=== PATIENT | male | born 1970 | race Caucasian/White ===

== ENCOUNTER 2018-04-02 09:22 | Outpatient (REF) | payer BC, SELFPAY ==
[2018-04-02 13:00] LABS: TSH 0.22 uIU/mL (0.358-3.74)
== END 2018-04-02 09:42 ==
LOC: NCHCN 09:22
PROVIDERS: PCP Internal Medicine; Visit Provider Internal Medicine
DX: E03.9 Hypothyroidism, unspecified (principal)
CPT/HCPCS: 84443

== ENCOUNTER 2018-05-15 07:55 | Outpatient (REF) | payer BC, SELFPAY ==
[2018-05-15 13:09] LABS: FREE T4 0.93 ng/dL (0.76-1.46)
== END 2018-05-15 08:15 ==
LOC: NCHCN 07:55
PROVIDERS: PCP Internal Medicine; Visit Provider Internal Medicine
DX: E03.9 Hypothyroidism, unspecified (principal)
CPT/HCPCS: 84439; 84443

== ENCOUNTER 2018-06-16 14:45 | Emergency (ER) | payer BC, SELFPAY ==
[2018-06-16] VITALS (16 sets, daily range): BP systolic 109–130; BP diastolic 61–80; PULSE 87–108; RESP 14–26; TEMP 36.5–36.7; O2SAT 94–98
--- NOTE | 2018-06-16 15:19 | DI.RAD_ITS ---
SYMPTOM/DIAGNOSIS: SYNCOPE, R/O ACUTE DISEASE AP AND LATERAL CHEST: The heart size is normal. The lungs appear clear. No infiltrate or effusion is seen. Surgical clips are seen in the upper abdomen. IMPRESSION: Negative chest x-ray
--- NOTE | 2018-06-16 15:19 | DI.CT_ITS ---
SYMPTOM/DIAGNOSIS: S/P FALL, R/O ACUTE FX/INTRACRANIAL INJURY NONCONTRAST HEAD CT: No intracranial hemorrhage or skull fracture is seen.There is no evidence of mass or infarct. The ventricles are normal in size. IMPRESSION: Negative head CT. CT CERVICAL SPINE There is kyphosis in the lower thoracic, upper thoracic region, likely congenital. There is a fracture of the anterior superior end plate of T-2 which appears acute. No additional fractures are seen. Degenerative changes are noted mainly of the facet joints in the upper cervical region. Degenerative disc changes seen at C6-7. There is no paraspinal hematoma. The visualized portions of the lung apices appear clear. IMPRESSION: Fracture of the anterior superior corner of T-2. No cervical fracture
--- NOTE | 2018-06-16 15:22 | W.ED.GENAD ---
Discharge Plan Disposition Patient Disposition: HOME Condition: Improving Discharge Details Chief Complaint: Dizzy/Sync Clinical Impression: Micturition syncope, Thoracic spine fracture Primary Care Provider: Parviz Baron ED Provider: Jennifer Long Home Meds and New Rx's Prescriptions: Continued levothyroxine [Synthroid] 175 mcg Tablet 175 mcg PO DAILY RF: 0 aspirin [Aspirin Low Dose] 81 mg Tablet,Delayed Release (Dr/Ec) 81 mg PO DAILY RF: 0 Discharge Instructions Instructions: Vertebral Compression Fracture (ED), Syncope (ED) Additional Instructions: Alternate tylenol and motrin as needed and directed for pain. Drink plenty of fluids and get plenty of rest. Follow-up with your primary care doctor in 1 week for reevaluation. Return immediately to the emergency department with any worsening or new concerning symptoms. Discharge Data Discharge Date/Time-TO BE ENTERED AT DEPARTURE: 06/16/18 19:57 Discharge Physician: Jennifer Long Medical Decision Making 48-year-old male with remote h/o Hodgkin's lymphoma as a child who presents with syncopal episode post urination prior to arrival. Vitals within normal limits. Patient appears nontoxic and in no acute distress. He has a posterior occipital hematoma otherwise no acute findings on exam. Differential diagnosis includes most likely micturition syncope associated with vasovagal syncope with stimulation of vagus nerve during urination. Patient also admits to drinking less than usual recently to the dehydration may also be a factor. As he has no complaints of chest pain, shortness of breath, palpitations and no other medical risk factors, with normal vitals, a cardiac etiology appears less likely. Patient's age and history, will place an IV, bolus IV fluids, labs, chest x-ray, CT head and CT cervical spine. EKG notes a rate of 88, sinus no acute findings. 1800 --labs reviewed. White blood cell count 14 which may be an acute stress response as he has no fever or infectious symptoms. Remainder of labs unremarkable. Chest x-ray negative. CT head negative. CT C-spine noted a nondisplaced acute fracture of the anterior superior corner of T2 with slight depression of the superior endplate. No additional fractures noted. Patient has no midline T-spine tenderness so question whether this is acute. Will send for formal T-spine CT for further evaluation. 1814 --discussed with orthopedics Dr. Diaz - T2 fracture and there are no acute recommendations and patient can be discharged home. T-spine CT notes previously found T2 fracture but no other acute findings. Patient again denies any back pain. Patient states he feels good and is requesting to go home. Patient is instructed to follow-up with his primary care doctor for reevaluation and return here at any time if worse. Patient able to easily ambulate out of the ED. Differential Diagnosis micturition syncope, vasovagal syncope, dehydration. Medical Records Medical records reviewed: Yes I reviewed the patient's medical records. Imaging Data Radiologic Study: Radiologist's impression: CT Thoracic Spine Without Contrast FINDINGS: Again noted is a nondisplaced fracture of the anterosuperior corner of T2 and slight depression of the superior endplate of T2. No bony retropulsion or canal stenosis. The alignment of the thoracic spine is normal. The other vertebral body heights are maintained. IMPRESSION: Fracture of T2 as above. XR Chest, 2 Views FINDINGS: No airspace consolidation, pleural effusion or pneumothorax. The cardiomediastinal silhouette is unremarkable. IMPRESSION: No acute findings. CT Head Without Contrast FINDINGS: There is no intracranial hemorrhage. There is no mass effect or midline shift. The ventricles and sulci are appropriate in size and configuration for age. Normal triana white differentiation. The calvarium is intact. IMPRESSION: No acute intracranial findings. CT Cervical Spine Without Contrast FINDINGS: There is a nondisplaced acute fracture of the anterosuperior corner of T2 with slight depression of the superior endplate. No bony retropulsion or canal stenosis. There is reversal of the usual cervical lordosis. No cervical spine fracture. The lung apices are clear. IMPRESSION: Fracture of T2 as above. Lab Data Lab results reviewed: Yes I reviewed the patient's lab results. Laboratory Tests Range/Units 06/16/18 06/16/18 15:15 15:15 WBC (4.4-10.8) k/cumm 14.64 H RBC (4.50-6.00) m/cumm 5.19 Hgb (13.5-17.5) g/dL 15.7 Hct (40.0-50.0) % 45.5 MCV (80-95) fL 87.7 MCH (27.0-33.0) pg 30.3 MCHC (32.0-36.0) g/dL 34.5 RDW (11.8-14.1) % 14.2 H Plt Count (130-400) x1000/uL 378 MPV (8.0-11.0) fL 10.3 Immature Gran % 0.3 Neutrophils % 72.7 Lymphocytes % 17.8 Monocytes % 7.7 Eosinophils % 1.2 Basophils % 0.3 Absolute Neutrophils (1.2-6.7) k/cumm 10.64 H Absolute Lymphocytes (1.2-3.4) k/cumm 2.61 Absolute Monocytes (0.11-0.7) k/cumm 1.13 H Absolute Eosinophils (0.0-0.7) k/cumm 0.18 Absolute Basophils (0.0-0.2) k/cumm 0.04 Sodium (136-145) mmol/L 143 Potassium (3.5-5.1) mmol/L 4.2 Chloride (98-107) mmol/L 105 Carbon Dioxide (21.0-32.0) mmol/L 30.9 Anion Gap (3-11) mmol/L 7.1 BUN (7-18) mg/dL 22 H Creatinine (0.70-1.30) mg/dL 1.11 Estimated GFR/1.73 m2 (mL/min/1.73m2) >= 60.00 Glucose (70-100) mg/dL 119 H Calcium (8.5-10.1) mg/dL 8.7 Magnesium (1.8-2.4) mg/dL 2.3 Total Bilirubin (0.2-1.0) mg/dL 0.3 AST (15-37) U/L 34 ALT (12-78) U/L 54 Alkaline Phosphatase (46-116) U/L 62 Troponin I (0.00-0.06) ng/mL < 0.02 Total Protein (6.4-8.2) g/dL 7.2 Albumin (3.4-5.0) g/dL 3.6 ECG Data Attestation: I personally reviewed and interpreted this ECG (s) as follows: Interpretation: 1504: 88, sinus, no acute ST elevation or depression, QTC 431. QRS 90. HPI General Mode of arrival: ambulatory. Date/Time Provider Initiated Documentation: 06/16/18 14:46. Limitations to Documentation: no limitations. Information obtained by: patient. HPI Narrative: Patient is a 48 yo M who presents to the ED w/ a c/o syncopal episode at home prior to arrival. Patient states he was standing in his bathroom urinating when he felt dizzy and then woke up on the floor. Patient states he thinks he hit the left side of his head on the bathroom wall. Patient states he felt somewhat dazed afterwards but now is back to baseline he denies any headache. Patient denies any illness or symptoms prior to this episode and states he otherwise had been feeling in his usual health. He denies any new medications, recent travel, fever. He denies any chest pain or shortness of breath at the time of syncope. He does admit to some neck stiffness. He denies any other injury. Related Data Home Medications Medication Instructions Recorded Confirmed aspirin [Aspirin Low Dose] 81 mg PO DAILY 06/16/18 06/16/18 levothyroxine [Synthroid] 175 mcg PO DAILY 06/16/18 06/16/18 Allergies Allergy/AdvReac Type Severity Reaction Status Date / Time diphenhydramine Allergy Severe Unverified 06/16/18 15:13 [From Benadryl] General Stated Complaint: Dizzy/Sync ANJANA: 2 Review of Systems Review of Systems All systems reviewed & are unremarkable except as noted in HPI and below Constitutional Reports as per HPI, Denies chills and Denies fever(s) Eyes Denies blurry vision ENT Denies dizziness, Denies sore throat and Denies throat swelling Cardiovascular Denies chest pain and Denies dyspnea Respiratory Denies dyspnea Gastrointestinal Denies abdominal pain, Denies diarrhea and Denies vomiting Genitourinary Denies hematuria and Denies dysuria Musculoskeletal Denies back pain and Denies numbness Integumentary/Breasts Denies lesions and Denies rash Neurologic Denies dizziness and Denies numbness Allergic/Immunologic Denies throat swelling [facility] Medical History Hodgkin's disease (Chronic) Surgical History History of splenectomy (Acute) History of appendectomy (Chronic) Social History Smoking/Tobacco Use Status: Never alcohol intake: current alcohol intake frequency: holidays/special occasions only substance use type: does not use Exam Const General: cooperative, healthy appearing and no acute distress HENMT Head: hematoma left occipital Ears: hearing grossly normal bilaterally, external ears normal and TM's normal bilaterally General nose exam: external nose normal Face and sinus: normal facial exam Mouth: oral mucosae normal Eyes General: appearance normal, both eyes and all related structures Pupils: PERRL EOM: EOM intact bilaterally Neck Neck: normal visual inspection and No submandibular swelling Lymphatic: no lymphadenopathy noted Chest Chest: normal inspection of the chest and no tenderness Resp Effort & Inspection: normal respiratory effort and able to speak in complete sentences Auscultation: clear to auscultation bilaterally Cardio Rate: regular rate Rhythm: regular rhythm GI Inspection: normal to inspection Palpation: soft, not firm, not rigid and nontender Auscultation: normal bowel sounds Male General Exam: Yes normal external exam Back/Spine/Pelvis Cervical Spine: No cervical muscular tenderness and No cervical spinal tenderness Thoracic/Lumbar Spine: thoracic and lumbar spine normal to inspection, No thoracic spinal tenderness and No lumbar spinal tenderness Skin General skin exam: no rashes or lesions noted Neuro General: alert, awake, oriented x3 and moves all extremities Cranial Nerves: CN's II-XI intact bilaterally Cognition: normal cognition Speech: speech normal Motor: muscle tone normal throughout Sensory Exam: no sensory deficits noted Extrem General: normal to inspection, full ROM, normal capillary refill, no calf tenderness bilaterally and no edema Psych Appearance: grossly normal Mental Status: mental status grossly normal Speech and Movement: speech and movement normal Affect: normal affect Course Vital Signs Temperature 97.7 F 06/16/18 15:07 Pulse 87 06/16/18 15:07 Respiratory Rate 16 06/16/18 15:07 Blood Pressure 127/80 06/16/18 15:07 Pulse Oximetry 98 06/16/18 15:07 Temperature 97.7 F 06/16/18 15:07 Temperature Source Skin 06/16/18 15:07 Pulse 87 06/16/18 15:07 Respiratory Rate 16 06/16/18 15:15 Respiratory Effort Non-Labored 06/16/18 15:15 Respiratory Depth Normal 06/16/18 15:15 Respiratory Pattern Normal 06/16/18 15:15 Blood Pressure 127/80 06/16/18 15:07 Blood Pressure Position Supine 06/16/18 15:07 Pulse Oximetry 98 06/16/18 15:07 Oxygen Delivery Method Room Air 06/16/18 15:07 Oxygen Flow Rate 0 06/16/18 15:07 Pain Level 3 06/16/18 15:07
[2018-06-16 15:30] LABS: Abs Immature Grans 0.05 k/cumm (0.0-0.09); Absolute Basophil Count 0.04 k/cumm (0.0-0.2); Absolute Monocyte Count 1.13 k/cumm (0.11-0.7); Basophils % 0.3; Eosinophils % 1.2; HCT 45.5 % (40.0-50.0); HGB 15.7 g/dL (13.5-17.5); Immature Grans % 0.3; Lymphocytes % 17.8; Mean Corp. HGB Concentration 34.5 g/dL (32.0-36.0); Mean Corpuscular Hemoglobin 30.3 pg (27.0-33.0); Mean Corpuscular Volume 87.7 fL (80-95); Mean Platelet Volume 10.3 fL (8.0-11.0); Monocytes % 7.7; Neutrophils % 72.7; Platelet Count 378 x1000/uL (130-400); RBC 5.19 m/cumm (4.50-6.00); RBC Distribution Width 14.2 % (11.8-14.1); White Blood Cell Count 14.64 k/cumm (4.4-10.8)
[2018-06-16] MEDS: Normal Saline 1,000 ML 1000 ML IV (15:30)
[2018-06-16 15:31] LABS: Absolute Eosinophil Count 0.18 k/cumm (0.0-0.7); Absolute Lymphocyte Count 2.61 k/cumm (1.2-3.4); Absolute Neutrophil Count 10.64 k/cumm (1.2-6.7)
[2018-06-16 15:46] LABS: ALT 54 U/L (12-78); AST 34 U/L (15-37); Albumin 3.6 g/dL (3.4-5.0); Alkaline Phosphatase 62 U/L (46-116); Anion Gap 7.1 mmol/L (3-11); BUN 22 mg/dL (7-18); Bilirubin, Total 0.3 mg/dL (0.2-1.0); CO2 30.9 mmol/L (21.0-32.0); CREATININE 1.11 mg/dL (0.70-1.30); Calcium 8.7 mg/dL (8.5-10.1); Chloride 105 mmol/L (98-107); Glucose 119 mg/dL (70-100); Magnesium 2.3 mg/dL (1.8-2.4); Potassium 4.2 mmol/L (3.5-5.1); Sodium 143 mmol/L (136-145); Total Protein 7.2 g/dL (6.4-8.2)
[2018-06-16 15:48] LABS: Troponin I < 0.02 ng/mL (0.00-0.06)
--- NOTE | 2018-06-16 16:55 | DI.VRAD_ITS ---
EXAM: XR Chest, 2 Views EXAM DATE/TIME: 06/16/2018 4:24 PM CLINICAL HISTORY: 48 years old, male; Signs and symptoms; Other: S/P passed out, fall TECHNIQUE: XR of the chest, 2 views. COMPARISON: No relevant prior studies available. FINDINGS: No airspace consolidation, pleural effusion or pneumothorax. The cardiomediastinal silhouette is unremarkable. IMPRESSION: No acute findings. Dictated and Authenticated by: Latrell Reynoso MD. Ordering:ANIL Rodriguez MD
--- NOTE | 2018-06-16 17:12 | DI.VRAD_ITS ---
EXAM: CT Head Without Contrast EXAM DATE/TIME: 06/16/2018 3:22 PM CLINICAL HISTORY: 48 years old, male; Signs and symptoms; Other: S/P fall, R/O acute fracture/intracranial injury TECHNIQUE: Axial computed tomography images of the head/brain without contrast. All CT scans at this facility use at least one of these dose optimization techniques: automated exposure control; mA and/or kV adjustment per patient size (includes targeted exams where dose is matched to clinical indication); or iterative reconstruction. Coronal and sagittal reformatted images were created and reviewed. COMPARISON: No relevant prior studies available. FINDINGS: There is no intracranial hemorrhage. There is no mass effect or midline shift. The ventricles and sulci are appropriate in size and configuration for age. Normal triana white differentiation. The calvarium is intact. IMPRESSION: No acute intracranial findings. EXAM: CT Cervical Spine Without Contrast EXAM DATE/TIME: 06/16/2018 3:22 PM CLINICAL HISTORY: 48 years old, male; Signs and symptoms; Other: S/P fall, R/O acute fracture/intracranial injury TECHNIQUE: Axial computed tomography images of the cervical spine without intravenous contrast. All CT scans at this facility use at least one of these dose optimization techniques: automated exposure control; mA and/or kV adjustment per patient size (includes targeted exams where dose is matched to clinical indication); or iterative reconstruction. Coronal and sagittal reformatted images were created and reviewed. COMPARISON: No relevant prior studies available. FINDINGS: There is a nondisplaced acute fracture of the anterosuperior corner of T2 with slight depression of the superior endplate. No bony retropulsion or canal stenosis. There is reversal of the usual cervical lordosis. No cervical spine fracture. The lung apices are clear. IMPRESSION: Fracture of T2 as above. Dictated and Authenticated by: Latrell Reynoso MD. Ordering:ANIL Rodriguez MD
--- NOTE | 2018-06-16 17:51 | DI.CT_ITS ---
SYMPTOM/DIAGNOSIS: S/P FALL, T 2 FX NOTED ON C SPINE CT THORACIC SPINE CT: There is a fracture of the anterosuperior corner of T 2. No additional fractures are identified. The alignment appears normal. Osteophytes are seen projecting posteriorly at T 3-4. There is no evidence of pneumothorax. The visualized portions of the lungs appear clear. No pleural effusions are seen. IMPRESSION: Fracture of the anterior superior endplate of T 2.
--- NOTE | 2018-06-16 19:14 | DI.VRAD_ITS ---
EXAM: CT Thoracic Spine Without Contrast EXAM DATE/TIME: 06/16/2018 5:52 PM CLINICAL HISTORY: 48 years old, male; Injury or trauma; Fall; Follow-up exam; Laceration; Without foreign body; Additional info: S/P fall t2 FX noted on cspine CT TECHNIQUE: Axial computed tomography images of the thoracic spine without intravenous contrast. All CT scans at this facility use at least one of these dose optimization techniques: automated exposure control; mA and/or kV adjustment per patient size (includes targeted exams where dose is matched to clinical indication); or iterative reconstruction. Coronal and sagittal reformatted images were created and reviewed. COMPARISON: No relevant prior studies available. FINDINGS: Again noted is a nondisplaced fracture of the anterosuperior corner of T2 and slight depression of the superior endplate of T2. No bony retropulsion or canal stenosis. The alignment of the thoracic spine is normal. The other vertebral body heights are maintained. IMPRESSION: Fracture of T2 as above. Dictated and Authenticated by: Latrell Reynoso MD. Ordering:ANIL Rodriguez MD
--- NOTE | 2018-06-18 09:28 | CMPROGNOTE_ITS ---
Care Management Progress Note 06/18-Dr. Long requested assistance with a PCP (Tod) f/u within one week for passing out. Referral faxed to [facility] this am.
== END 2018-06-16 19:57 | disposition home or self-care (01) ==
PROVIDERS: Emergency Provider Physician Assistant; PCP Internal Medicine
DX: R55 Syncope and collapse (principal); S22.020A Wedge compression fracture of second thoracic vertebra, initial encounter for closed fracture; S00.03XA Contusion of scalp, initial encounter; W18.39XA Other fall on same level, initial encounter; W22.09XA Striking against other stationary object, initial encounter
CPT/HCPCS: 36415; 80053; 93005; 96360; 99285; 70450; 71046; 72125; 72128; 83735; 84484; 85025; 93010; L0172

== ENCOUNTER 2018-08-02 09:24 | Outpatient (REF) | payer BC, SELFPAY ==
[2018-08-02 12:37] LABS: TSH 0.96 uIU/mL (0.358-3.74)
== END 2018-08-02 09:44 ==
LOC: NCHCN 09:24
PROVIDERS: PCP Internal Medicine; Visit Provider Internal Medicine
DX: E03.9 Hypothyroidism, unspecified (principal)
CPT/HCPCS: 84439; 84443

== ENCOUNTER 2018-11-26 06:55 | Day surgery (SDC) | payer BC, SELFPAY ==
--- NOTE | 2018-11-26 06:44 | W.COLOREPORT ---
Date of service: 11/26/18 Time of Service: 08:21 Colonoscopy Report Date of procedure: 11/26/18 Pre-op diagnosis general: Hx of polyps Post-op diagnosis procedure note: same (4 polyps) Procedure: Colonoscopy with polypectomy by cold forceps Surgeon: Samra Mabry Anesthesia proc note operative: other (General/ ASA 2 / Jackie ortez, MONICA) Estimated blood loss (mL): 5 Pathology: other (Ascending polypsx2, transverse polyp, rectal polyp) Complications: None Disposition: same day Indications: Mr. Wharton is a pleasant 48 year old male seen in the office for his first colonoscopy. he has no family history of colon cancer. Risks, benefits and complications have been reviewed. Complications include but are not limited to bleeding, pain, perforation, missed small lesion/polyp, sore throat, aspiration and adverse reaction to the medications. Questions were entertained and answered to their satisfaction and they wished to proceed. No guarantees were given or implied. Prep: Miralax/Dulcolax Procedure Start Time: : Procedure End Time: :53 Retraction Time: 25 minutes Findings: Multiple small polyps Procedure Description: After informed consent was obtained the patient was taken to the procedure room and placed in a left decubitous position. Monitors were applied and a time out was done. The patients name, date of , procedure, allergies to medications and metal in their body was reviewed. The patient was then sedated. Once sedated and comfortable a rectal exam was done. External exam was normal. Internal exam revealed a normal sphincter tone and no palpable masses. The prostate felt smooth. The scope was then introduced and retro-flexed. No internal hemorrhoids were identified. The scope was then advanced to the cecum without difficulty. The TI and appendiceal orifice were identified. The prep was adequate. The scope was then slowly retracted over 25 minutes back into the rectum. Polyps were removed with cold forceps in the ascending colon x2, transverse colon x1 and rectum x1. The scope was removed and the patient was woken up and taken back to Same day surgery in stable condition. The patient tolerated the procedure well and there were no immediate complications. Follow up: The patient should follow up in 3-5 years unless they develop changes in bowel habits or other new gastrointestinal complaints.
--- NOTE | 2018-11-26 06:45 | W.PM.DSUDISC ---
Discharge Plan Disposition Patient Disposition: HOME Condition: Good Discharge Details Reason For Visit: Colon Cancer Screening Attending Provider: Samra Mabry Primary Care Provider: Parviz Baron Home Meds and New Rx's Prescriptions: Continued atorvastatin 20 mg tablet 20 mg PO DAILY RF: 0 albuterol sulfate [Proventil HFA] 90 mcg/actuation HFA aerosol inhaler 2 puff IH Q6H PRNRF: 0 fluticasone propionate 50 mcg/actuation spray,suspension 1 spray YOLANDA DAILY PRNRF: 0 levothyroxine [Synthroid] 175 mcg Tablet 175 mcg PO DAILY RF: 0 aspirin [Aspirin Low Dose] 81 mg Tablet,Delayed Release (Dr/Ec) 81 mg PO DAILY RF: 0 Discontinued polyethylene glycol 3350 17 gram/dose powder 238 g PO ONCE Qty: 238 RF: 0 bisacodyl [Dulcolax (bisacodyl)] 5 mg tablet,delayed release (DR/EC) 5 mg PO ONCE Qty: 4 RF: 0 Discharge Instructions Instructions: Colonoscopy (DC), Colorectal Polyps (DC) Additional Instructions: Findings: 4 small polyps Follow up: 3-5 years depending on final pathology results Please call if you develop: fevers >101.5 Nausea or Vomiting Abdominal pain that is not transient DAY SURGERY UNIT POST COLONOSCOPY INSTRUCTIONS 1. Because there will be medication in your system for the next 24 hours, you may feel a little sleepy. Your coordination will be affected. Therefore: a. Do not drive or operate dangerous equipment for 24 hours. b. Do not drink alcohol beverages for 24 hours (not even beer). c. Plan to go home and rest for the day. 2. Generally there are no restrictions on your activity after a day or so has gone by, but you may feel a bit fatigued for a few days. 3 After you arrive home you may have a light meal and return to a normal diet as you can tolerate it without feeling sick to your stomach. 4. After surgery, you may feel pain or discomfort. This should be only transient, but if it persists please contact your doctor. 5. If there are any questions regarding the findings of your procedure, please feel free to contact your doctor. 6. If you are unable to contact your doctor with a problem, contact the hospital at [phone]. 7. Continue all your regular medications unless directed otherwise. I understand the above instructions and have no questions. Signature of Patient or Responsible Adult Escort Date/Time Name of Responsible Adult Escort Signature of Nurse Date/Time Activity:: Activity as Tolerated Diet:: As Tolerated Discharge Orders Discharge Orders: Discharge Order (Routine); Ordered 11/26/18 Ordered By: Samra Mabry DS: Diagnosis Discharge Diagnosis (1) S/P colonoscopy: Status: Acute (2) Colorectal polyps: Status: Acute
[2018-11-26 07:22] VITALS: BP 105/67; PULSE 91; RESP 18; TEMP 36.5; O2SAT 96
[2018-11-26] MEDS: Lactated Ringers 1,000 ML 80 ML IV (07:34)
[2018-11-26] MEDS: Lidocaine 2% Pres-Free 5 ML VIAL (08:15)
--- NOTE | 2018-11-26 08:27 | BOWEL_PTH ---
PATIENT: Anibal Wharton LOC: [facility] U#:[id number] AGE/SX: 48/M ROOM: RE11/26/[address]: Samra Mabry MD : [id number] BED: DIS: 11/26/2018 SPEC #: [id number] RECD: 11/26/18 12:46 STATUS: JUAN M RE #: [id number] LISA: 11/26/18 08:[address]: Samra Mabry DEPT: Surgical Specimen RECD BY: Keerthi Sifuentes ENTERED: 11/26/18 12:48 SP TYPE: Bowel OTHR DR: Parviz Baron Tissues: 1 - BIOPSY BOWEL 2 - BIOPSY BOWEL 3 - BIOPSY BOWEL Procedures: GROSS AND MICRO LEVEL 4 Comments: [id number]
[2018-11-26] MEDS: Phenylephrine 800 MCG/10 ML SYR (08:50)
[2018-11-26 09:35] VITALS: BP 98/65; PULSE 77; RESP 16; TEMP 36.6; O2SAT 96
== END 2018-11-26 10:50 | disposition home or self-care (01) ==
LOC: SUR 06:56
PROVIDERS: PCP Internal Medicine; Visit Provider Surgery
PROC: 0DJD8ZZ Inspection of Lower Intestinal Tract, Via Natural or Artificial Opening Endoscopic (ICD-10-PCS; CPT 45378; principal; 2018-11-26 08:30)
DX: Z12.11 Encounter for screening for malignant neoplasm of colon (principal); D12.2 Benign neoplasm of ascending colon; K63.5 Polyp of colon; K62.1 Rectal polyp; Z87.19 Personal history of other diseases of the digestive system
CPT/HCPCS: 45380; 88305

== ENCOUNTER 2019-08-09 15:27 | Outpatient (REF) | payer BC, SELFPAY ==
[2019-08-09 19:57] LABS: FREE T4 1.45 ng/dL (0.76-1.46); TSH 0.05 uIU/mL (0.36-3.74)
== END 2019-08-09 15:47 ==
LOC: NCHCN 15:27
PROVIDERS: PCP Internal Medicine; Visit Provider Internal Medicine
DX: E03.9 Hypothyroidism, unspecified (principal)
CPT/HCPCS: 84439; 84443

== ENCOUNTER 2019-12-05 16:02 | Outpatient (REF) | payer BC, SELFPAY ==
[2019-12-05 20:39] LABS: HCT 44.4 % (40.0-50.0); HGB 15.1 g/dL (13.5-17.5); Mean Corpuscular Hemoglobin 29.7 pg (27.0-33.0); Mean Corpuscular Volume 87.4 fL (80-95); Platelet Count 419 x1000/uL (130-400); RBC 5.08 m/cumm (4.50-6.00); RBC Distribution Width 14.1 % (11.8-14.1); White Blood Cell Count 13.11 k/cumm (4.4-10.8)
[2019-12-05 20:48] LABS: ALT 51 U/L (16-63); AST 29 U/L (15-37); Albumin 3.6 g/dL (3.4-5.0); Alkaline Phosphatase 66 U/L (46-116); Anion Gap 9.2 mmol/L (3-11); BUN 24 mg/dL (7-18); Bilirubin, Total 0.3 mg/dL (0.2-1.0); CO2 26.8 mmol/L (21.0-32.0); CREATININE 1.04 mg/dL (0.70-1.30); Calcium 9.6 mg/dL (8.5-10.1); Chloride 104 mmol/L (98-107); FREE T4 1.46 ng/dL (0.76-1.46); Glucose 122 mg/dL (74-106); Magnesium 2.4 mg/dL (1.8-2.4); Potassium 4.8 mmol/L (3.5-5.1); Sodium 140 mmol/L (136-145); TSH 0.07 uIU/mL (0.36-3.74); Total Protein 6.8 g/dL (6.4-8.2)
== END 2019-12-05 16:22 ==
LOC: NCHCN 16:02
PROVIDERS: PCP Internal Medicine; Visit Provider Internal Medicine
DX: R56.9 Unspecified convulsions (principal)
CPT/HCPCS: 80053; 85027; 83735; 84439; 84443

== ENCOUNTER 2019-12-16 02:08 | Outpatient (CLI) | payer BC, SELFPAY ==
--- NOTE | 2019-12-16 13:01 | PDOC.EEG ---
Neurology EEG EEG: [facility] Department of Neurology EEG REPORT Date of Recordin12/16/19 Interpreting Physician: Dr. Dodie Thompson PCP/Referring Provider: Dr. Chan Baron Reason for study: Mr. Wharton is a 49 year-old man with a recent event manifested by LOC with generalized shaking, concerning for seizure. Current Medications: Home Medications Medication Instructions Recorded Confirmed Type aspirin [Aspirin Low Dose] 81 mg PO DAILY 06/16/18 11/26/18 History levothyroxine [Synthroid] 175 mcg PO DAILY 06/16/18 11/26/18 History albuterol sulfate 90 mcg/actuation 2 puff IH Q6H PRN 10/10/18 11/22/18 History aerosol inhaler atorvastatin 20 mg tablet 20 mg PO DAILY 10/10/18 11/26/18 History fluticasone propionate 50 1 spray YOLANDA DAILY PRN 11/02/18 11/26/18 History mcg/actuation nasal spray,suspension METHODS: A 21 channel digitized electroencephalogram was performed in the [facility] Clinical Neurophysiology Laboratory. The 10/20 international system of electrode placement was used and bipolar and referential electrode montages were recorded. In addition to EEG the patient was monitored for EKG and lateral/vertical eye movements. Activation procedures of photic stimulation and hyperventilation were performed if applicable. Video was used during activation procedures and during events where applicable. The duration of the recording was 30 minutes. DESCRIPTION OF EEG: The patient was noted to be awake, drowsy, and asleep during the recording. During maximal wakefulness a 10-Hz posterior background rhythm was present which was well-modulated, symmetrical, reactive to eye opening, and of moderate voltage. With eye opening the background activity changed to a low voltage mixture of alpha, beta, and occasional theta range frequencies. Faster frequencies were present in the bilateral anterior head regions. There was a normal anterior-posterior voltage gradient. During drowsiness, there was attenuation of the posterior dominant background rhythm and vertex waves. Stage II sleep was present with symmetrical sleep spindles, K-complexes, and vertex waves. Activating Procedures: Photic stimulation was performed which produced no posterior driving response. Hyperventilation was performed with moderate effort and produced no physiological slowing of the background. EKG: EKG revealed normal sinus rhythm. INTERPRETATION: This EEG is normal during the awake and sleep states as well as during photic stimulation and hyperventilation. PRIOR EEG: none CLINICAL CORRELATION: No focal regions of cerebral dysfunction or epileptiform activity was present. Epilepsy remains a clinical diagnosis and a normal EEG does not rule out epilepsy. Clinical correlation is advised. Dodie Thompson MD
== END 2019-12-16 02:28 ==
PROVIDERS: PCP Internal Medicine; Visit Provider Internal Medicine
DX: G40.909 Epilepsy, unspecified, not intractable, without status epilepticus (principal)
CPT/HCPCS: 95819

== ENCOUNTER 2019-12-25 02:25 | Outpatient (CLI) | payer BC, SELFPAY ==
--- NOTE | 2019-12-25 | DI.MRI_ITS ---
EXAM: MR BRAIN WO CLINICAL HISTORY: SEIZURE, R56.9 TECHNIQUE: Multiplanar multisequence MRI of the brain was performed. COMPARISON: No exams were available for comparison FINDINGS: VENTRICLES AND EXTRA AXIAL SPACES: Normal in size and morphology for the patient's age. MIDLINE SHIFT: None. CEREBRAL PARENCHYMA: No focus of restricted diffusion to suggest acute infarct. There are few scatte red hyperintense foci seen on the T2 and FLAIR images in the white matter. No space-occupying lesion identified. The temporal lobes appear symmetric. HEMORRHAGE: None. BRAINSTEM/CEREBELLUM: Normal. CALVARIUM: Normal. VISUALIZED PARANASAL SINUSES/MASTOIDS:Clear. [place]: Normal flow void. PITUITARY GLAND: Unremarkable. OTHER FINDINGS: None. IMPRESSION: 1. There are a few scattered hyperintense foci seen on the T2 and FLAIR images in the white matter. These are nonspecific. This may represent small vessel ischemic disease. Other demyelinating proces ses cannot be excluded. DATA REPOSITORY:
--- NOTE | 2019-12-25 | DI.MRI_ITS ---
CLINICAL HISTORY: SEIZURE, R56.9. TECHNIQUE: Multiplanar multisequence MRA of the brain was performed. COMPARISON: None. FINDINGS: Carotid Arteries: No aneurysm, occlusion or significant stenosis. Anterior Cerebral Arteries: Right: No aneurysm, occlusion or significant stenosis. Left: No aneurysm, occlusion or significant stenosis. Middle Cerebral Arteries: Right: No aneurysm, occlusion or significant stenosis. Left: No aneurysm, occlusion or significant stenosis. Posterior Cerebral Arteries: Right: No aneurysm, occlusion or significant stenosis. Left: No aneurysm, occlusion or significant stenosis. Vertebral Arteries: Right: No aneurysm, occlusion or significant stenosis. Left: No aneurysm, occlusion or significant stenosis. Basilar Artery: No aneurysm, occlusion or significant stenosis. IMPRESSION: Normal MRA examination of the [place]. DATA REPOSITORY:
== END 2019-12-25 02:45 ==
PROVIDERS: PCP Internal Medicine; Visit Provider Internal Medicine
DX: R56.9 Unspecified convulsions (principal); R90.89 Other abnormal findings on diagnostic imaging of central nervous system
CPT/HCPCS: 70544; 70551

== ENCOUNTER 2020-11-30 16:13 | Outpatient (REF) | payer BC, SELFPAY ==
[2020-11-30 20:33] LABS: TSH 0.01 uIU/mL (0.36-3.74)
== END 2020-11-30 16:14 | disposition home or self-care (01) ==
LOC: NCHCN 16:13
PROVIDERS: PCP Internal Medicine; Visit Provider Internal Medicine
DX: E03.9 Hypothyroidism, unspecified (principal)
CPT/HCPCS: 84443

== ENCOUNTER 2021-02-26 16:35 | Outpatient (REF) | payer BC, SELFPAY ==
[2021-02-26 22:05] LABS: FREE T4 1.49 ng/dL (0.76-1.46); TSH 0.05 uIU/mL (0.36-3.74)
== END 2021-02-26 16:36 | disposition home or self-care (01) ==
LOC: NCHCN 16:35
PROVIDERS: PCP Internal Medicine; Visit Provider Family Medicine
DX: E03.8 Other specified hypothyroidism (principal)
CPT/HCPCS: 84439; 84443

== ENCOUNTER 2021-05-20 19:12 | Outpatient (REF) | payer BC, SELFPAY ==
[2021-05-20 21:32] LABS: FREE T4 1.21 ng/dL (0.76-1.46); TSH 1.95 uIU/mL (0.36-3.74)
== END 2021-05-20 19:13 | disposition home or self-care (01) ==
LOC: NCHCN 19:12
PROVIDERS: PCP Internal Medicine; Visit Provider Family Medicine
DX: E03.9 Hypothyroidism, unspecified (principal)
CPT/HCPCS: 84439; 84443

== ENCOUNTER 2022-05-07 23:40 | Emergency (ER) | payer BC, SELFPAY ==
--- NOTE | 2022-05-07 00:05 | DI.RAD_ITS ---
Exam(s) XR CHEST 2V PA LATERAL EXAM: XR CHEST 2V PA LATERAL CLINICAL HISTORY: chest pain, r/o acute disease TECHNIQUE: 2D digital imaging was performed. COMPARISON: CR XR CHEST 2V PA LATERAL from 06/16/2018 FINDINGS: The heart is not enlarged. Slight prominence of pulmonary markings noted, chronic, unchanged from ex amination of June 2018, otherwise the lungs are clear and well expanded. No pleural effusion seen. Mediastinal contours appear intact. IMPRESSION: No evidence of acute process. RADIATION DOSE DELIVERED: Total DLP
--- NOTE | 2022-05-07 23:30 | RT.EKG_ITS ---
APPROVED REPORT Exam: Resting ECG Reason for Exam: chest pain Patient Location: E HR:103 bpm ECG Measurements Heart Rate 103 AXIS MN 140 P 63 QRSd 87 QRS 47 QT 317 T -16 QTc 415 Conclusion Sinus tachycardia...rate> 99. Sinus. Normal axis. No STEMI. I have reviewed and interpreted ECG and agree with software generated interpretation.
[2022-05-07 23:45] VITALS: BP 179/74; PULSE 98; RESP 19; TEMP 37.2; O2SAT 97
[2022-05-07 23:57] VITALS: RESP 26
[2022-05-07 23:59] LABS: Abs Immature Grans 0.05 10^3/uL (0.0-0.06); Absolute Basophil Count 0.09 10^3/uL (0.0-0.2); Absolute Eosinophil Count 0.47 10^3/uL (0.0-0.7); Absolute Lymphocyte Count 3.81 10^3/uL (1.2-3.4); Absolute Monocyte Count 1.71 10^3/uL (0.1-0.8); Absolute Neutrophil Count 9.38 10^3/uL (1.2-6.7); Basophils % 0.6; HCT 43.9 % (40.0-50.0); HGB 14.8 g/dL (13.5-17.5); Immature Grans % 0.3; Lymphocytes % 24.6; MCHC 33.7 % (32.0-36.0); MCV 89 fL (80-95); MPV 10.4 fL (8.0-11.0); Neutrophils % 60.5; Platelet Count 385 10^3/uL (130-400); RBC 4.93 10^6/uL (4.36-5.78); RDW 13.3 % (11.8-14.1); RDW-SD 43.5 fL
[2022-05-08 00:19] LABS: ALT 45 U/L (16-63); AST 29 U/L (15-37); Albumin 3.5 g/dL (3.4-5.0); Alkaline Phosphatase 71 U/L (46-116); Anion Gap 7.9 mmol/L (3-11); BUN 21 mg/dL (7-18); Bilirubin, Total 0.4 mg/dL (0.2-1.0); CO2 28.1 mmol/L (21.0-32.0); Calcium 8.7 mg/dL (8.5-10.1); Chloride 105 mmol/L (98-107); Estimated GFR 89.44 (mL/min/1.73m2); Glucose 115 mg/dL (74-106); Magnesium 2.2 mg/dL (1.8-2.4); Potassium 3.9 mmol/L (3.5-5.1); Sodium 141 mmol/L (136-145); Total Protein 7.3 g/dL (6.4-8.2); Troponin I < 50 ng/L (<or=60)
[2022-05-08 00:27] LABS: Diff Comment Agrees w/ Instrument; RBC Morphology Normal
[2022-05-08 00:29] LABS: D-Dimer 261 ng/mlFEU (<500)
--- NOTE | 2022-05-08 00:31 | W.ED.GENAD ---
Discharge Plan Disposition Patient Disposition: Home Condition: Improving Discharge Details Clinical Impression: Chest pain Primary Care Provider: Carmelo Benavidez ED Provider: Jennifer Long Home Meds and New Rx's Prescriptions: Continued atorvastatin 20 mg tablet 20 mg PO DAILY albuterol sulfate [Proventil HFA] 90 mcg/actuation HFA aerosol inhaler 2 puff IH Q6H PRN fluticasone propionate 50 mcg/actuation spray,suspension 1 spray YOLANDA DAILY PRN levothyroxine 150 mcg capsule 150 mcg PO DAILY aspirin [Laila Low Dose Aspirin] 81 mg Tablet,Delayed Release (Dr/Ec) 81 mg PO DAILY No Action famotidine [Pepcid] 40 mg tablet 40 mg PO DAILY Qty: 30 0RF Discharge Instructions Instructions: Chest Pain (ED) Additional Instructions: Your blood test, EKGs and imaging today are reassuring and show no evidence of acute concerning or significant findings. A prescription for Carafate has been sent electronically to your pharmacy to take as needed and directed. Take your omeprazole once daily for the next 2 weeks. Discussed with your general surgeon tomorrow whether it would be okay to proceed with your colonoscopy as scheduled. Call your primary care doctor's office on Monday to schedule a follow-up appointment for recheck of your blood pressure, reevaluation and for referral for outpatient stress test if your symptoms return or worsen. Return immediately to the emergency department if you develop any worsening or new concerning symptoms. Discharge Data Discharge Date/Time-TO BE ENTERED AT DEPARTURE: 05/08/22 03:00 Discharge Physician: Jennifer Long Medical Decision Making 0010 -- 52-year-old male with a history of cardiac murmur, subclavian steal syndrome, carotid artery stenosis who presents with intermittent chest pain since yesterday. Blood pressure hypertensive at 179/74. EKG on arrival notes a rate of 103, normal sinus, no STEMI and nondiagnostic. Patient appears comfortable and nontoxic. Chest is nontender. History and presentation does not appear consistent with PE or dissection. As there is no exertional component and he had no other associated symptoms, low suspicion with ACS but considering his age and history, will obtain screening labs, chest x-ray. We will give a GI cocktail and reassess. Patient is agreeable to stay for repeat troponin. 0245 --labs and imaging reviewed. White blood cell count 15. He has had similar elevated white blood cell count dating back for the last few years. Initial Troponin negative. D-dimer within normal limits. Chest x-ray negative. Patient was agreeable to stay for a repeat troponin which was also negative. Repeat EKG unchanged. Patient reassessed and he admits to complete resolution of his symptoms and would like to go home. Heart score 2, low risk. Repeat BP 150/58. Advised to follow up with the primary care doctor for re-evaluation and for recheck of his blood pressure, reevaluation and for referral for stress test if indicated. Prescription for Carafate sent electronically to his pharmacy. He was advised to take a PPI once daily for the next 2 weeks. Usual and customary return precautions given prior to discharge. Medical Records Medical records reviewed: Yes I reviewed the patient's medical records. Imaging Data Radiologic Study: Radiologist's impression: XR Chest Exam date and time: 05/08/2022 12:20 AM Age: 52 years old Clinical indication: On breathing; Patient HX: Chest pain, R/O acute disease. TECHNIQUE: Imaging protocol: Radiologic exam of the chest. Views: 2 views. COMPARISON: CR XR CHEST 2V PA LATERAL 06/16/2018 4:19 PM FINDINGS: Lungs: There is no evidence of focal pulmonary consolidation. The pulmonary vasculature is normal. Pleural spaces: There is no evidence of pneumothorax. There are no pleural effusions present. Heart/Mediastinum: The cardiac silhouette is within normal limits. The mediastinum is normal. Bones/joints: The spine, sternum, ribs, and pectoral girdles show no evidence of acute abnormality Other findings: There are no soft tissue masses or calcifications. IMPRESSION: No active cardiopulmonary disease. Lab Data Lab results reviewed: Yes I reviewed the patient's lab results. Labs: Laboratory Tests Range/Units 05/07/22 05/07/22 05/07/22 23:51 23:51 23:52 WBC (4.4-10.8) 10^3/uL 15.50 H RBC (4.36-5.78) 10^6/uL 4.93 Hgb (13.5-17.5) g/dL 14.8 Hct (40.0-50.0) % 43.9 MCV (80-95) fL 89 MCH (27.0-33.0) pg 30.0 MCHC (32.0-36.0) % 33.7 RDW (11.8-14.1) % 13.3 Plt Count (130-400) 10^3/uL 385 MPV (8.0-11.0) fL 10.4 Immature Gran % 0.3 Neutrophils % 60.5 Lymphocytes % 24.6 Monocytes % 11.0 Eosinophils % 3.0 Basophils % 0.6 Nucleated RBC % (0.0-0.3) % 0.0 Absolute Neutrophils (1.2-6.7) 10^3/uL 9.38 H Absolute Lymphocytes (1.2-3.4) 10^3/uL 3.81 H Absolute Monocytes (0.1-0.8) 10^3/uL 1.71 H Absolute Eosinophils (0.0-0.7) 10^3/uL 0.47 Absolute Basophils (0.0-0.2) 10^3/uL 0.09 RBC Morphology Normal D-Dimer (<500) ng/mlFEU 261 Sodium (136-145) mmol/L 141 Potassium (3.5-5.1) mmol/L 3.9 Chloride (98-107) mmol/L 105 Carbon Dioxide (21.0-32.0) mmol/L 28.1 Anion Gap (3-11) mmol/L 7.9 BUN (7-18) mg/dL 21 H Creatinine (0.70-1.30) mg/dL 1.0 Est GFR (CKD-EPI 2020) (mL/min/1.73m2) 89.44 Glucose (74-106) mg/dL 115 H Calcium (8.5-10.1) mg/dL 8.7 Magnesium (1.8-2.4) mg/dL 2.2 Total Bilirubin (0.2-1.0) mg/dL 0.4 AST (15-37) U/L 29 ALT (16-63) U/L 45 Alkaline Phosphatase (46-116) U/L 71 Troponin I (<or=60) ng/L < 50 Total Protein (6.4-8.2) g/dL 7.3 Albumin (3.4-5.0) g/dL 3.5 Range/Units 05/08/22 02:00 WBC (4.4-10.8) 10^3/uL RBC (4.36-5.78) 10^6/uL Hgb (13.5-17.5) g/dL Hct (40.0-50.0) % MCV (80-95) fL MCH (27.0-33.0) pg MCHC (32.0-36.0) % RDW (11.8-14.1) % Plt Count (130-400) 10^3/uL MPV (8.0-11.0) fL Immature Gran % Neutrophils % Lymphocytes % Monocytes % Eosinophils % Basophils % Nucleated RBC % (0.0-0.3) % Absolute Neutrophils (1.2-6.7) 10^3/uL Absolute Lymphocytes (1.2-3.4) 10^3/uL Absolute Monocytes (0.1-0.8) 10^3/uL Absolute Eosinophils (0.0-0.7) 10^3/uL Absolute Basophils (0.0-0.2) 10^3/uL RBC Morphology D-Dimer (<500) ng/mlFEU Sodium (136-145) mmol/L Potassium (3.5-5.1) mmol/L Chloride (98-107) mmol/L Carbon Dioxide (21.0-32.0) mmol/L Anion Gap (3-11) mmol/L BUN (7-18) mg/dL Creatinine (0.70-1.30) mg/dL Est GFR (CKD-EPI 2020) (mL/min/1.73m2) Glucose (74-106) mg/dL Calcium (8.5-10.1) mg/dL Magnesium (1.8-2.4) mg/dL Total Bilirubin (0.2-1.0) mg/dL AST (15-37) U/L ALT (16-63) U/L Alkaline Phosphatase (46-116) U/L Troponin I (<or=60) ng/L < 50 Total Protein (6.4-8.2) g/dL Albumin (3.4-5.0) g/dL ECG Data Attestation: I personally reviewed and interpreted this ECG (s) as follows: Interpretation: Rate of 103, sinus, normal axis, no STEMI. Sign Out No HPI General Mode of arrival: ambulatory. Date/Time Provider Initiated Documentation: 05/07/22 23:41. Limitations to Documentation: no limitations. Information obtained by: patient. HPI Narrative: Patient is a 52-year-old male with a history of carotid artery stenosis, subclavian steal syndrome, Hodgkin's lymphoma as a child with history of splenectomy and appendectomy presents for substernal chest pain since yesterday. 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 He states this was not exertional but initially noted the substernal chest pressure while doing this. He states the pain lasted for several hours and then resolved and had no pain this morning but it returned at 2 PM this afternoon while he was at rest. He does occasionally admit to pain with deep breath but denies any pain with movement. He denies any known injury. He states the pain is currently 5/10. He states he has a history of reflux and states this could feel similar. He denies any fever, cough, shortness of breath, dizziness, or leg swelling. Related Data Home Medications Medication Instructions Recorded Confirmed aspirin 81 mg tablet,delayed 81 mg PO DAILY 06/16/18 05/09/22 release (Laila Low Dose Aspirin) albuterol sulfate 90 mcg/actuation 2 puff inhalation Q6H PRN 10/10/18 05/09/22 aerosol inhaler (Proventil HFA) atorvastatin 20 mg tablet 20 mg PO DAILY 10/10/18 05/09/22 fluticasone propionate 50 1 spray intranasal DAILY PRN 11/02/18 05/09/22 mcg/actuation nasal spray,suspension levothyroxine 150 mcg capsule 150 mcg PO DAILY 07/01/21 05/09/22 famotidine 40 mg tablet (Pepcid) 40 mg PO DAILY #30 tabs 05/09/22 Previous Rx's Medication Instructions Recorded famotidine 40 mg tablet (Pepcid) 40 mg PO DAILY #30 tabs 05/09/22 Allergies Allergy/AdvReac Type Severity Reaction Status Date / Time diphenhydramine Allergy Severe Hives Verified 05/09/22 07:20 [From Benadryl] General Stated Complaint: Chest Pain ANJANA: 2 Review of Systems All systems reviewed & are unremarkable except as noted in HPI and below Constitutional Constitutional: Reports as per HPI, Denies chills and Denies fever(s) Eyes Eyes: Denies blurry vision ENT Ears, Nose, Mouth, and Throat: Denies dizziness, Denies sore throat and Denies throat swelling Cardiovascular Cardiovascular: Reports chest pain and Denies dyspnea Respiratory Respiratory: Denies cough and Denies dyspnea Gastrointestinal Gastrointestinal: Denies abdominal pain, Denies diarrhea and Denies vomiting Genitourinary Genitourinary: Denies hematuria and Denies dysuria Musculoskeletal Musculoskeletal: Denies back pain and Denies numbness Integumentary/Breasts Skin/Breast: Denies lesions and Denies rash Neurologic Neurologic: Denies dizziness, Denies localized weakness and Denies numbness Allergic/Immunologic Allergic/Immunologic: Denies throat swelling PFSH All Active Problems Chest pain (Acute) Screening for colon cancer (Acute) Syncope (Chronic) Colorectal polyps (Acute) Medical History Allergic rhinitis Asthma, exercise induced Cardiac murmur Carotid artery stenosis History of colon polyps 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, in remission for years Hyperlipidemia Hypothyroidism Pulsatile tinnitus of left ear Radiation exposure Subclavian artery stenosis Subclavian steal syndrome left subclavian stenosis with possible steal Surgical History History of appendectomy History of splenectomy S/P colonoscopy (~11/26/18) Social History Smoking/Tobacco Use Status: Never Smoking risk assessment performed?: Yes Alcohol Intake: current Alcohol Intake frequency: a few times a week Alcohol type: beer Drug use: Never Substance use type: does not use Details: alcohol: t-21 Household members: spouse Housing: house 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; 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 [employer] Pets and animals: Yes Pets and animals: cat(s) Current gender identity: male What is your relationship status?: Panel score (0-1 are the most socially isolated patients): 1 What type of physical activity do you participate in: weight lifting and running Frequency: 3-4 times per week Seatbelt use: always Do you feel safe at home: Yes Do you feel safe in your relationship?: Yes Exam Const General: cooperative, healthy appearing and no acute distress Orientation: alert, awake and oriented x3 HENMT Head: normal to inspection Face and sinus: normal facial exam Eyes General: appearance normal, both eyes and all related structures Pupils: PERRL EOM: EOM intact bilaterally Neck Neck: normal visual inspection and No submandibular swelling Lymphatic: no lymphadenopathy noted Chest Chest: normal inspection of the chest, normal palpation of entire chest wall and no tenderness Resp Effort & Inspection: normal respiratory effort and able to speak in complete sentences Auscultation: clear to auscultation bilaterally Cardio Rate: regular rate Rhythm: regular rhythm GI Inspection: normal to inspection Palpation: soft, not firm, not rigid and nontender Auscultation: normal bowel sounds Back/Spine/Pelvis Thoracic/Lumbar Spine: thoracic and lumbar spine normal to inspection Pelvis: no pain with anterior-posterior compression Skin General skin exam: no rashes or lesions noted Neuro General: patient alert, patient awake and patient oriented x3 Cognition: normal cognition Speech: speech normal Motor: muscle tone normal throughout Sensory Exam: no sensory deficits noted Extrem General: normal to inspection, full ROM, capillary refill normal, no calf tenderness bilaterally and no edema Psych Appearance: grossly normal Mental Status: mental status grossly normal Speech and Movement: speech and movement normal Affect: normal affect Course Vital Signs Vital signs: Vital Signs Temperature 99.0 F 05/07/22 23:45 Pulse 98 H 05/07/22 23:45 Respiratory Rate 19 05/07/22 23:45 Blood Pressure 179/74 H 05/07/22 23:45 Pulse Oximetry 97 05/07/22 23:45 Temperature 99.0 F 05/07/22 23:45 Temperature Source Temporal Artery Scan 05/07/22 23:45 Pulse 98 H 05/07/22 23:45 Respiratory Rate 26 H 05/07/22 23:57 Respiratory Effort Non-Labored 05/07/22 23:57 Respiratory Depth Normal 05/07/22 23:57 Respiratory Pattern Normal 05/07/22 23:57 Blood Pressure 179/74 H 05/07/22 23:45 Blood Pressure Position Sitting 05/07/22 23:45 Pulse Oximetry 97 05/07/22 23:45 Pain Level 6 05/07/22 23:57 Lab/Test Results Lab/Test Results: Laboratory Tests Range/Units 05/07/22 05/07/22 05/07/22 23:51 23:51 23:52 WBC (4.4-10.8) 10^3/uL 15.50 H RBC (4.36-5.78) 10^6/uL 4.93 Hgb (13.5-17.5) g/dL 14.8 Hct (40.0-50.0) % 43.9 MCV (80-95) fL 89 MCH (27.0-33.0) pg 30.0 MCHC (32.0-36.0) % 33.7 RDW (11.8-14.1) % 13.3 Plt Count (130-400) 10^3/uL 385 MPV (8.0-11.0) fL 10.4 Immature Gran % 0.3 Neutrophils % 60.5 Lymphocytes % 24.6 Monocytes % 11.0 Eosinophils % 3.0 Basophils % 0.6 Nucleated RBC % (0.0-0.3) % 0.0 Absolute Neutrophils (1.2-6.7) 10^3/uL 9.38 H Absolute Lymphocytes (1.2-3.4) 10^3/uL 3.81 H Absolute Monocytes (0.1-0.8) 10^3/uL 1.71 H Absolute Eosinophils (0.0-0.7) 10^3/uL 0.47 Absolute Basophils (0.0-0.2) 10^3/uL 0.09 RBC Morphology Normal D-Dimer (<500) ng/mlFEU 261 Sodium (136-145) mmol/L 141 Potassium (3.5-5.1) mmol/L 3.9 Chloride (98-107) mmol/L 105 Carbon Dioxide (21.0-32.0) mmol/L 28.1 Anion Gap (3-11) mmol/L 7.9 BUN (7-18) mg/dL 21 H Creatinine (0.70-1.30) mg/dL 1.0 Est GFR (CKD-EPI 2020) (mL/min/1.73m2) 89.44 Glucose (74-106) mg/dL 115 H Calcium (8.5-10.1) mg/dL 8.7 Magnesium (1.8-2.4) mg/dL 2.2 Total Bilirubin (0.2-1.0) mg/dL 0.4 AST (15-37) U/L 29 ALT (16-63) U/L 45 Alkaline Phosphatase (46-116) U/L 71 Troponin I (<or=60) ng/L < 50 Total Protein (6.4-8.2) g/dL 7.3 Albumin (3.4-5.0) g/dL 3.5
--- NOTE | 2022-05-08 00:41 | DI.VRAD_ITS ---
PROCEDURE INFORMATION: Exam: XR Chest Exam date and time: 05/08/2022 12:20 AM Age: 52 years old Clinical indication: On breathing; Patient HX: Chest pain, R/O acute disease. TECHNIQUE: Imaging protocol: Radiologic exam of the chest. Views: 2 views. COMPARISON: CR XR CHEST 2V PA LATERAL 06/16/2018 4:19 PM FINDINGS: Lungs: There is no evidence of focal pulmonary consolidation. The pulmonary vasculature is normal. Pleural spaces: There is no evidence of pneumothorax. There are no pleural effusions present. Heart/Mediastinum: The cardiac silhouette is within normal limits. The mediastinum is normal. Bones/joints: The spine, sternum, ribs, and pectoral girdles show no evidence of acute abnormality Other findings: There are no soft tissue masses or calcifications. IMPRESSION: No active cardiopulmonary disease. Dictated and Authenticated by: Mack Mathis MD. Ordering:ANIL Rodriguez MD
--- OUTSIDE RECORDS SUMMARY | 2022-05-08 00:47 | XMS_ITS | Encounter Summary ---
:1970 Author Organization [facility] Address [address] [place] [address] Care Team Providers Name Role Phone Parviz Baron MD Primary Care Provider Encounter Details Date Type Department Care Team Description 07/06/2010 Hospital Encounter [facility] - Ramon Sweet MD [address] [phone] (Wo rk) Social History Tobacco Use Types Packs/Day Years Used Date Smoking Tobacco: Never Alcohol Use Standard Drinks/Week Comments Yes 2 (1 standard drink = 0.6 oz pure alcoho l) Sex Assigned at Date Recorded Not on file documented as of this encounter Medications at Time of Discharge Medication Sig Dispensed Refills Start Date End Date aspirin chewable 81 mg Take 81 mg by mouth 0 tablet daily. FLUTICASONE PROPIONATE by Nasal route as 0 2010 (FLONASE NASL) needed. levothyroxine (SYNTHROID) Take by mouth daily. Take on e tablet by mouth 6 days a week needs to follow up with primary 30 Tab 1 05/05/2010 200 mcg tablet MULTI-VITAMIN ORAL Take by mouth daily. 0 011 penicillin v potassium Take 250 mg by mouth 0 (VEETID) 250 mg tablet 2 times daily. documented as of this encounter Discharge Disposition Disposition Code Departure Means Destination Home or Self Mcfp documented in this encounter Plan of Treatment Not on filedocumented as of this encounter Visit Diagnoses Not on filedocumented in this encounter Care Teams Residential Carpenter Relationship Specialty Start Date End Date Parviz Baron MD PCP - General 10/01/08 [address] [place] [address] documented as of this encounter
--- OUTSIDE RECORDS SUMMARY | 2022-05-08 00:47 | XMS_ITS | Encounter Summary ---
:1970 Author Organization [facility] Address [address] [place] [address] Care Team Providers Name Role Phone Parviz Baron MD Primary Care Provider Encounter Details Date Type Department Care Team Description 02/06/2007 Results Only [facility] Yakov Pollard MD Pediatric Hematology & Oncology - [address] [phone] Social History Tobacco Use Types Packs/Day Years Used Date Smoking Tobacco: Never Assessed Sex Assigned at Date Recorded Not on file documented as of this encounter Plan of Treatment Not on filedocumented as of this encounter Procedures Procedure Name Priority Date/Time Associated Comments Diagnosis TESTS ADDED BY PHONE Routine 02/06/2007 9:30 Resu lts for this EDT procedure are i n the results section. COMPLETE BLOOD COUNT Routine 02/06/2007 9:30 Resu lts for this AND DIFFERENTIAL EDT procedure a re in the results section. TSH Routine 02/06/2007 9:30 Results for this EDT procedure are i n the results section. T4 FREE Routine 02/06/2007 9:30 Results for this EDT procedure are i n the results section. PHOSPHORUS Routine 02/06/2007 9:30 Results for this EDT procedure are i n the results section. CALCIUM Routine 02/06/2007 9:30 Results for this EDT procedure are i n the results section. documented in this encounter Results (ABNORMAL) TSH (02/06/2007 9:30 EDT) P athologist Signature TSH 0.06 (L) 0.35 - 5.00 [facility] uIU/mL LAB Specimen Anatomical Collection Method Collection Time Receive d Time (Source) Location / / Volume Laterality 02/06/2007 9:30 02/06/2007 9 :57 EDT EDT Yakov Pollard MD CHEMISTRY & BLOOD GAS ORDERA BLES Performing Organization Address City/State/ZIP Code Phon e Number [facility] [address] [place] [address] SERVICES [facility] [address] [place] [address] PHOSPHORUS (02/06/2007 9:30 EDT) P athologist Signature Phosphorus 3.7 2.5 - 4.5 [facility] mg/dl LAB Specimen Anatomical Collection Method Collection Time Receive d Time (Source) Location / / Volume Laterality 02/06/2007 9:30 02/06/2007 9 :57 EDT EDT Yakov Pollard MD CHEMISTRY & BLOOD GAS ORDERA BLES Performing Organization Address City/[facility]/ZIP Code Phon e Number [facility] [address] [place] [address] SERVICES [facility] [address] [place] [address] T4 FREE (02/06/2007 9:30 EDT) P athologist Signature Free T4 1.6 0.8 - 1.8 [facility] ng/dL LAB Specimen Anatomical Collection Method Collection Time Receive d Time (Source) Location / / Volume Laterality 02/06/2007 9:30 02/06/2007 9 :57 EDT EDT Yakov Pollard MD CHEMISTRY & BLOOD GAS ORDERA BLES Performing Organization Address City/[facility]/ZIP Code Phon e Number [facility] [address] [place] [address] SERVICES [facility] [address] [place] [address] (ABNORMAL) HEMAGRAM AND DIFFERENTIAL (02/06/2007 9:30 EDT) Component Value Ref Test Analysis Performed At Patholo gist Range Method Time Signature WBC 8.21 4.0 - JUAN 10.4 [facility] K/cmm RBC 5.22 4.36 - JU[facility] 5.78 [facility] M/cmm Hemoglobin 15.7 13.8 - [facility] 17.3 [facility] gm/dl HCT 46.1 39.5 - JUAN 50.2 % [facility] MCV 88 81 - 95 [facility] fl [facility] MCH 30.1 27.6 - JUAN 33.0 pg [facility] MCHC 34.1 32.8 - JUAN 36.4 [facility] gm/dl PLT 313 141 - JUAN 320 [facility] K/cmm RDW-CV 14.1 11.8 - JUAN 14.1 % [facility] Neutrophils 54.0 45.5 - JUAN 79.7 % [facility] Lymphocytes 32.0 15.0 - JUAN 46.8 % [facility] Monocytes 11.0 1.8 - JUAN 12.0 % [facility] Eosinophils 1.0 0.6 - JUAN 6.9 % [facility] Basophils 2.0 (H) 0.2 - JUAN 1.4 % [facility] ABS 4.44 2.20 - [facility] Neutrophils 8.85 [facility] K/cmm ABS Lymphs 2.63 1.09 - JUAN 3.30 [facility] K/cmm ABS Monocytes 0.90 (H) 0.1 - JUAN 0.8 [facility] K/cmm ABS 0.08 0.03 - JUAN Eosinophils 0.61 [facility] K/cmm ABS Basophils 0.16 (H) 0.01 - JUAN 0.11 [facility] K/cmm RBC Morphology 1+ Anisocytosis [facility] 1+ Poikilocytosis [facility] 1+ Target cells WBC Morphology 1+ Smudge cells J[facility]AN [facility] Platelet 1+ Large [facility] Morphology platelets [facility] Type of Diff: Manual [facility] Specimen Anatomical Collection Method Collection Time Receive d Time (Source) Location / / Volume Laterality 02/06/2007 9:30 02/06/2007 9 :57 EDT EDT Yakov Pollard MD PACKAGES & DNA PROBE ORDERAB LES Performing Organization Address City/State/ZIP Code Phon e Number [facility] [address] [place] [address] SERVICES [facility] [address] [place] [address] CALCIUM (02/06/2007 9:30 EDT) P athologist Signature Calcium 9.7 8.5 - 10.5 [facility] mg/dl LAB Calculated 9.6 8.5 - 10.5 [facility] Calcium mg/dl LAB Specimen Anatomical Collection Method Collection Time Receive d Time (Source) Location / / Volume Laterality 02/06/2007 9:30 02/06/2007 9 :57 EDT EDT Yakov Pollard MD CHEMISTRY & BLOOD GAS ORDERA BLES Performing Organization Address City/State/ZIP Code Phon e Number [facility] [address] [place] [address] SERVICES [facility] [address] [place] [address] TESTS ADDED BY PHONE (02/06/2007 9:30 EDT) [facility] Method Time Signature Tests to be CA,PHOS JUAN added [facility] Diagnosis SAME [facility] Who Called ANGELA FOR DR [facility] Location Code [facility] Specimen Anatomical Collection Method Collection Time Receive d Time (Source) Location / / Volume Laterality 02/06/2007 9:30 02/06/2007 9 :57 EDT EDT Yakov Pollard MD CHEMISTRY & BLOOD GAS ORDERA BLES Performing Organization Address City/State/ZIP Code Phon e Number [facility] [address] [place] [address] SERVICES [facility] [address] [place] [address] documented in this encounter Visit Diagnoses Not on filedocumented in this encounter Care Teams Records Technician Relationship Specialty Start Date End Date Parviz Baron MD PCP - General 10/01/08 [address] [place] [address] documented as of this encounter
--- OUTSIDE RECORDS SUMMARY | 2022-05-08 00:47 | XMS_ITS | Encounter Summary ---
:1970 Author Organization [facility] Address [address] [place] [address] Care Team Providers Name Role Phone Parviz Baron MD Primary Care Provider Encounter Details Date Type Department Care Team Description 11/26/2018 Results Only [facility]- Lux Schulte, [address] [place] [address] [place] [address] (Wo rk) Social History Tobacco Use Types Packs/Day Years Used Date Smoking Tobacco: Never Alcohol Use Standard Drinks/Week Comments Yes 2 (1 standard drink = 0.6 oz pure alcoho l) Sex Assigned at Date Recorded Not on file documented as of this encounter Plan of Treatment Not on filedocumented as of this encounter Procedures Procedure Name Priority Date/Time Associated Diagnosis [facility] SURGICAL PATHOLOGY Routine 11/26/2018 15:41 Resul ts for this EDT procedure are i n the results section. documented in this encounter Results SURGICAL PATHOLOGY (11/26/2018 15:41 EDT) Component Value Ref Test Analysis Performed At [facility] Method [place] Signature Pathology SURGICAL PATHOLOGY REPORT [facility] MEDICAL Report: Reports generated via electronic interface contain origina l data; CENTER however they are lacking the format of the original report. LABORATORY Caution should be taken when reading/interpreting unformat delmy reports. SERVICES Name: ? CODY BOUCHER ? Accession #: ? [id number] ? : ? 1970 (Age: 3 0) ??M ? Collect Date: ? 11/26/2018 ? Location: ? [facility] ? Receive Date: ? 11/26/2018 ? Provider: LUX OSWALD MD Copy to: PARVIZ BARON MD ? Final Pathologic Diagnosis: A. COLON, ASCENDING, POLYPS, BIOPSY: - ??Fragments of inflamed sessile serrated adenomas. B. COLON, TRANSVERSE, POLYP, BIOPSY: - ??Fragment of hyperplastic polyp with a lymphoid aggregate . C. RECTUM, POLYP, BIOPSY: - ??Fragment of hyperplastic polyp with a lymphoid aggregate . Document reviewed and electronically signed by: LIN ROWELL MD Report ??Date: 11/28/2018 16:32 By the signature above, the attending physician certifies th at he/she has personally conducted a gross and/or microscopic examin ation of the described specimens and rendered or confirmed the above diagnosis. Specimen(s) Received: A. ??Ascending colon polyp (x2) B. ??Transverse colon polyp C. ??Rectal polyp Clinical History: Colon cancer screening, polyps Gross Description: A. ?Received in formalin labelled with proper patie nt identification (initials S, J) and ascending colon polyp are four fragments of pink tissue measuring 0.3 x 0.2 x 0.2 cm. The specimens are submitted en tirely in A1. B. ?Received in formalin labelled with proper patie nt identification (initials S, J) and transve rse colon polyp is a single fragment of little tissue (0.4 x 0.3 x 0.3 cm). The specimen is submitted entirely in B1. C. ?Received in formalin labelled with proper patie nt identification (initials S, J) and rectal polyp is a single f ragment of pink tissue (0.4 x 0.3 x 0.2 cm). The specimen is submitted entirely in C1. TEJINDER De Oliveira (ASCP) 11/26/2018 4:11 PM End of Report Specimen Anatomical Collection Method Collection Time Receive d Time (Source) Location / / Volume Laterality 11/26/2018 15:41 11/26/2018 EDT 15:41 EDT Lux Oswald MD PATHOLOGY ORDERABLES Performing Organization Address City/State/ZIP Code Phon e Number [facility] [address] [place] [address] SERVICES documented in this encounter Visit Diagnoses Not on filedocumented in this encounter Care Teams Events Solutions Consultant Relationship Specialty Start Date End Date Parviz Baron MD PCP - General 10/01/08 [address] [place] [address] documented as of this encounter
--- OUTSIDE RECORDS SUMMARY | 2022-05-08 00:47 | XMS_ITS | Encounter Summary ---
:1970 Author Organization [facility] Address [address] [place] [address] Care Team Providers Name Role Phone Parviz Baron MD Primary Care Provider Encounter Details Date Type Department Care Team Description 06/09/2009 Hospital Encounter [facility] Ramon Sweet MD [facility] Pediatric [address] [place] [address] Hematology & Oncology [place], [place] - [facility] [id number] [place] [address] [place] [address] [phone] Social History Tobacco Use Types Packs/Day Years Used Date Smoking Tobacco: Never Assessed Sex Assigned at Date Recorded Not on file documented as of this encounter Discharge Disposition Disposition Code Departure Means Destination Home or Self Shelter documented in this encounter Progress Notes Ramon Sweet MD - 06/09/2009 0000 EST DIVISION OF PEDIATRIC HEMATOLOGY/ONCOLOGY PROGRESS/FOLLOWUP NOTE - 06/09/2009 DESEAN Boucher is here today for followup in our Survivor[facility] clinic for Pediatric Oncology. CHIEF COMPLAINT: Hodgkin's disease. HISTORIAN: Patient HISTORY OF PRESENT ILLNESS: DESEAN was diagnosed at age 8 with stage IA Hodgkin's disease involving aright cervical node. Histology was nodular sclerosing and the node was excised. The patient underwent surgical staging including a splenectomy, and then received radiation therapy alone according to a then- active [facility] pediatric protocol 7691. The radiation was to a total dose of 35.5 triana to the upper mantle and cervical region with a second set of sessions to treat the abdomen and para-aortic white. Treatment was successful and he is in his first continuous remission, now roughly 30 years posttreatment. He continues to be employed with the state [employer], and is doing well overall. 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 He has had yearly echocardiograms, all of which have been normal, and he continues to pass his periodic state [employer] physical fitness exams. He reports that he has lipids checked with the [employer] least once a year, although I do not have records of these. He has had no interim surgery, allergies or new problems. Review of systems is otherwise entirely negative in the last year. He has no pain. OBJECTIVE: Shows his height to be 165.5 cm, weight 79 kilograms. He is afebrile. Blood pressure is 127/62, pulse is 70. In general, he is well developed, in no acute distress. HEENT are within normal limits. Examination of the neck shows it to be supple. 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 Lungs do not show retractions or flaring. Breath sounds are clear throughout. Cardiac exam shows normal pulse perfusion without edema or cyanosis, regular rate and rhythm without murmur. Examination of the abdomen shows a long transverse scar from previous splenectomy. Liver is not enlarged. There is no tenderness or masses. are normal maleTanner V. No adenopathy in the inguinal, supraclavicular, axillary or neck area. No skin rashes are noticed. Neurologic exam shows symmetric cranial nerves 3 through 12. Deep tendon reflexes 2+ bilaterally. Superficial touch, cerebellar and development are appropriate. He is alert and oriented. Judgment is within normal limits. Musculoskeletal exam shows full range of motion with good tone and strength of all extremities, upper and lower. Again, there is a muscular deformity in the neck secondary tohis previous radiation. ASSESSMENT: 1. Mtsyf-eja-rbwe-old man status post treatment for Hodgkin's disease with radiation therapy alone. He needs no further imaging this far out for the Hodgkin's disease itself. 2. Late effects. He had an echocardiogram at today's visit. I would like him to meet with Dr. Joaquin Agee in an official consultation at next year's visit to see whether there would be a more appropriate modality for imaging in terms of late effects for radiation to the mediastinum. One would anticipate a somewhat accelerated progression of cardiovascular disease and potential valve injury from the previous radiation and a simple echocardiogram may not be the best way to monitor this. 3. 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 Will continue on Synthroid. This can be provided by Dr. Baron. 4. Splenectomy. He continues to take penicillin for postsplenectomy prophylaxis. It is not clear howeffective penicillin is this far out from the splenectomy. This, combined with the high incidence ofpenicillin-resistant pneumococcus in the community, means that any high fever should still be treated as medical emergency, and he should have more broad-spectrum antibiotics. This far after therapy, DESEAN's health needs are more in the realm of internal medicine and adult cardiology than in Pediatric Oncology, and we will be arranging to see him less often. I will be providing him with a treatment summary Perini tool from the [facility] web site. We will see him in a year and talk about transitioning him to primary care followup at that point aswell. Electronically Signed by Ramon Sweet MD 06/24/2009 13:29 Ramon Sweet MD Division of Pediatric Hematology / Oncology [phone] - Ramon Sweet MD - [facility] Job ID: SM Doc ID: [id number] Ext Doc ID: [id number] cc: MD Joaquin Salinas MD documented in this encounter Procedure Notes Inpatient, MD Piero - 08/18/2009 0936 EDTAssociated Order(s): PULMONARY FUNCTION LAB REPORT - SCANNED; PULMONARY FUNCTION LAB REPORT - SCANNED documented in this encounter Plan of Treatment Not on filedocumented as of this encounter Procedures Procedure Name Priority Date/Time Associated Comments Diagnosis PULMONARY FUNCTION 08/18/2009 9:36 Result s for this REPORT - SCANNED EDT procedure a re in the results section. PAULETTE MILLER BILCORNELIO 06/09/2009 11:20 Resu lts for this DIGITAL EST procedure are i n the results section. SLIDE REQUEST Routine 06/09/2009 9:01 Results for this EST procedure are i n the results section. COMPLETE BLOOD COUNT Routine 06/09/2009 9:01 Resu lts for this AND DIFFERENTIAL EST procedure a re in the results section. TSH Routine 06/09/2009 9:01 Results for this EST procedure are i n the results section. T4 FREE Routine 06/09/2009 9:01 Results for this EST procedure are i n the results section. COMPREHENSIVE METABOLIC Routine 06/09/2009 9:01 R esults for this PANEL (CMP) EST procedure are i n the results section. ECHOCARDIOGRAM 06/09/2009 8:35 Results fo r this EST procedure are i n the results section. documented in this encounter Results PULMONARY FUNCTION LAB REPORT - SCANNED (08/18/2009 9:36 EDT) Specimen (Source) Anatomical Collection Method Collection Time Re ceived Time Location / / Volume Laterality 08/18/2009 9:36 EDT Narrative 08/18/2009 9:45 EDT This result has an attachment that is no t available. Ordered by an unspecified provider. Transcriptions Inpatient, Physician, MD - 08/18/2009 9: 36 EDT Physician Inpatient MD PROCEDURE/MINOR SURGICAL ORD ERABLES MA MAMMO DIAG BILAT DIGITAL (06/09/2009 11:20 EST) Anatomical Region Laterality Modality Other Specimen Anatomical Collection Method Collection Time Receive d Time (Source) Location / / Volume Laterality 06/09/2009 11:20 06/10/2009 9:08 EST EST Narrative 06/10/2009 9:08 EST Diagnostic Mammogram With Additional Vie ws Right Breast Comparison is made to all prior mammogra ms, which date back to 2003. The breast tissue is bilaterally fatty r eplaced. This examination was interpreted with the aid of computer-ass isted detection (CAD) technology. Left breast findings: There are no domin ant masses, suspicious calcifications or areas of architectural distortion. Impression left breast: BI-RADS category 1, negative. Right breast findings: There is a somewh at flame-shaped density in the retroareolar region which is a new f inding. Additional spot magnified images of this region were als o performed demonstrating this to persist. I believe the changes h ere are most consistent with gynecomastia and are not viewed with sig nificant clinical concern. There are no suspicious calcifications o r areas of architectural distortion. Impression right breast: BI-RADS categor y 2, benign. Recommendation both breasts: Annual scre ening mammography should continue given the patient's clinical hi story of radiation for Hodgkin's lymphoma. Overall assessment: Benign. The patient was told the results and rec ommendations following the study by the technologist. The patient w ill be notified of her/his breast imaging results via a lay letter from Radiology. Radiology will contact the patient directly regard ing any findings which require additional imaging (Category 0) at this time. Procedure Note 06/10/2009 Diagnostic Mammogram With Additional Vie ws Right Breast Comparison is made to all prior mammogra ms, which date back to 2003. The breast tissue is bilaterally fatty r eplaced. This examination was interpreted with the aid of computer-ass isted detection (CAD) technology. Left breast findings: There are no domin ant masses, suspicious calcifications or areas of architectural distortion. Impression left breast: BI-RADS category 1, negative. Right breast findings: There is a somewh at flame-shaped density in the retroareolar region which is a new f inding. Additional spot magnified images of this region were als o performed demonstrating this to persist. I believe the changes h ere are most consistent with gynecomastia and are not viewed with sig nificant clinical concern. There are no suspicious calcifications o r areas of architectural distortion. Impression right breast: BI-RADS categor y 2, benign. Recommendation both breasts: Annual scre ening mammography should continue given the patient's clinical hi story of radiation for Hodgkin's lymphoma. Overall assessment: Benign. The patient was told the results and rec ommendations following the study by the technologist. The patient w ill be notified of her/his breast imaging results via a lay letter from Radiology. Radiology will contact the patient directly regard ing any findings which require additional imaging (Category 0) at this time. Ramon Sweet MD IM MAMMOGRAPHY ORDERABLES SLIDE REQUEST (06/09/2009 9:01 EST) [facility] Method Time Signature Note A smear is JUAN filed in the [facility] Hematology lab Specimen Anatomical Collection Method Collection Time Receive d Time (Source) Location / / Volume Laterality 06/09/2009 9:01 06/09/2009 9 :34 EST EST Ramon Sweet MD HEMATOLOGY & PF4 ORDERABLES Performing Organization Address City/[facility]/ZIP Code Phon e Number [facility] [address] [place] [address] SERVICES [facility] [address] [place] [address] TSH (06/09/2009 9:01 EST) P athologist Signature TSH 0.54 0.35 - 5.00 [facility] uIU/ml LAB Specimen Anatomical Collection Method Collection Time Receive d Time (Source) Location / / Volume Laterality Blood specimen 06/09/2009 9:01 06/09/2009 9:34 (specimen) EST EST Ramon Sweet MD CHEMISTRY & BLOOD GAS ORDERA BLES Performing Organization Address [facility]/ZIP [facility] Phon e Number [facility] [address] [place] [address] SERVICES [facility] [address] [place] [address] T4 FREE (06/09/2009 9:01 EST) athologist Signature Free T4 1.4 0.8 - 1.8 [facility] ng/dL LAB Specimen Anatomical Collection Method Collection Time Receive d Time (Source) Location / / Volume Laterality Blood specimen 06/09/2009 9:01 06/09/2009 9:34 (specimen) EST EST Ramon Sweet MD CHEMISTRY & BLOOD GAS ORDERA BLES Performing Organization Address City/[facility]/ZIP [facility] Phon e Number [facility] [address] [place] [address] SERVICES [facility] [address] [place] [address] (ABNORMAL) HEMAGRAM AND DIFFERENTIAL (06/09/2009 9:01 EST) [facility] gist Method Time Signature WBC 8.55 4.0 - JUAN 10.4 [facility] K/cmm RBC 5.33 4.36 - JUAN 5.78 [facility] M/cmm Hemoglobin 16.3 13.8 - JUAN 17.3 [facility] gm/dl HCT 47.2 39.5 - JUAN 50.2 % [facility] MCV 89 81 - 95 JUAN fl [facility] MCH 30.5 27.6 - JUAN 33.0 pg [facility] MCHC 34.5 32.8 - JUAN 36.4 [facility] gm/dl PLT 302 141 - 320 JUAN K/cmm [facility] RDW-CV 13.6 11.8 - JUAN 14.1 % [facility] Neutrophils 55.3 45.5 - JUAN 79.7 % [facility] Lymphocytes 28.2 15.0 - JUAN 46.8 % [facility] Monocytes 10.5 1.8 - JUAN 12.0 % [facility] Eosinophils 5.2 0.6 - 6.9 JUAN % [facility] Basophils 0.8 0.2 - 1.4 JUAN % [facility] ABS Neutrophils 4.74 2.20 - JUAN 8.85 [facility] K/cmm ABS Lymphs 2.41 1.09 - JUAN 3.30 [facility] K/cmm ABS Monocytes 0.89 (H) 0.1 - 0.8 JUAN K/cmm [facility] ABS Eosinophils 0.44 0.03 - JUAN 0.61 [facility] K/cmm ABS Basophils 0.07 0.01 - JUAN 0.11 [facility] K/cmm Type of Diff: Automated JUAN [facility] Specimen Anatomical Collection Method Collection Time Receive d Time (Source) Location / / Volume Laterality Blood specimen 06/09/2009 9:01 06/09/2009 9:34 (specimen) EST EST Ramon Sweet MD PACKAGES & DNA PROBE ORDERAB LES Performing Organization Address City/State/ZIP Code Phon e Number [facility] [address] [place] [address] SERVICES JUAN [facility] [address] [place] [address] (ABNORMAL) COMPREHENSIVE METABOLIC PANEL (06/09/2009 9:01 EST) Analysis Performed At Patho logist Time Signature Potassium 5.3 (H) 3.5 - 5.0 JUAN mEq/L [facility] Sodium 140 136 - 145 JUAN mEq/L [facility] Chloride 105 96 - 110 JAUN mEq/L [facility] CO2 24 24 - 32 JUAN mEq/L [facility] Alkaline 59 38 - 126 JUAN Phosphatase U/L [facility] Bilirubin, Total <0.5 0.2 - 1.3 JUAN mg/dl [facility] AST 46 15 - 46 JUAN U/L [facility] ALT 55 21 - 72 JUAN U/L [facility] Albumin 4.8 3.4 - 4.9 JUAN g/dl [facility] Total Protein 7.9 6.5 - 8.3 JUAN g/dl [facility] Creatinine 0.83 0.7 - 1.5 JUAN mg/dl [facility] GFR, Calculated >60 ml/min/1.7 JUAN 3m2 [facility] BUN 23 10 - 26 JUAN mg/dl [facility] Calcium 10.0 8.5 - 10.5 JUAN mg/dl [facility] Calculated 9.6 8.5 - 10.5 JUAN Calcium mg/dl [facility] Glucose, Serum 76 70 - 100 JUAN mg/dl [facility] Fasting? No [facility]UAN [facility] Specimen Anatomical Collection Method Collection Time Receive d Time (Source) Location / / Volume Laterality Blood specimen 06/09/2009 9:01 06/09/2009 9:34 (specimen) EST EST Ramon Sweet MD CHEMISTRY & BLOOD GAS ORDERA BLES Performing Organization Address City/State/ZIP Code Phon e Number [facility] [address] [place] [phone] SERVICES JUAN [facility] [address] [place] [address] ECHOCARDIOGRAM (06/09/2009 8:35 EST) Anatomical Region Laterality Modality Other Specimen (Source) Anatomical Collection Method Collection Time Re ceived Time Location / / Volume Laterality 06/09/2009 8:35 EST Narrative 06/09/2009 13:29 EST Patient Name: BASILIO BOUCHER Chart Number: [id number] Site Location: Date of Appt: Tuesday, June 09, 2009, 8:35 AM Pediatric Echocardiogram Report Demographics and Visit Data: : 1970. ??Age: 39y/3m/18d. ??BSA (m 2): 1.94. ??Height (cm): 168.5. ?? Weight (kg): 79.1. ??BMI (kg/m 2): 27.86 . ??Patient location: [facility]. ?? Person requesting test: TIMA BARON MD ??Computer Installation Engineer: Daiana Murillo. Reason for test: color/pulse Doppler. ?? Referral diagnosis: S/P HODGKINS DISEASE. ?? Procedure Description: ECHOCARDIOGRAM. ? ? Summary: Status post adriamycin therapy. No abnormality seen. Normal left ventricular size, wall thick ness and systolic function. Normal right ventricular size with quali tatively good right ventricular systolic function. Normal Doppler study of the intracardiac valves. No intracardiac masses seen. Compared with last study, 05/06/08, no si gnificant change. Findings: ?? Veins and Atria: ?? >> Normal Left Atrium >> Normal Right Atrium ?? A-V Canal: ?? >> Normal Tricuspid Valve Trivial tricuspid regurgitation. By tric uspid regurgitation jet, the estimated right ventricular pressure is approximately 20 mmHg plus right atrial pressure. ?? >> Normal Mitral Valve No significant mitral regurgitation. ? Ventricles: ?? >> Global left ventricular dysfunction, ruled out Normal left ventricular size, wall thick ness and systolic function with no significant regional wall motion abnorma lities appreciated. ?? >> Left ventricular dilation or enlargem ent, ruled out >> Right ventricular dysfunction global, ruled out Qualitatively good right ventricular sys tolic function. ?? >> Right ventricular dilation or enlarge ment, ruled out ?? Conotruncus: ?? >> Aortic regurgitation, ruled out No aortic regurgitation seen. ?? >> Normal Pulmonary Valve ?? Pericardium: ?? (No abnormalities seen) ?? Other: ?? >> S/p adriamycin therapy >> Intracardiac mass, ruled out No intracardiac mass or thrombus seen. ? Measures: ?? Systemic Arterial Function: ?? Name ? Value ?Units ?? Systolic BP ? 127 ?mmH g ? Diastolic BP ? 62 ? mmH g ? Pulse Pressure ? 65 ? mmH g ? Mean BP ? 83.7 ? mmHg ? 2D: ?? Name ? Value ?Units ?? LV Diastolic Volume Index (Bullet) ? 62.25 ?mL/m 2 ? M-Mode: ?? Name ? Value ?Units ?Z-Score ?Min ?Max ?? LV Diastolic Septal Thickness ? 0.84 ? cm ? -1.16 ? 0.74 ?1.39 ?? LV Diastolic Dimension ? 4.78 ? cm ? -1.09 ? 4.45 ?6.15 ?? LV Diastolic Wall Thickness ? 0.89 ? cm ? -0.71 ? 0.76 ?1.26 ?? LV Systolic Dimension ? 3.01 ? cm ? -1.48 ? 2.86 ?4.31 ?? LV Fractional Shortening ? 37.03 ?% ? LV Systolic Function: ?? Name ? Value ?Units ?? LV Diastolic Volume (Bullet) ? 120.76 ? mL ? LV Systolic Volume (Bullet) ? 59.64 ?mL ? LV Ejection Fraction (Bullet) ? 50.61 ?% ? 2D LV Mass ? 144.11 ? g ? 2D LV Volume Index ? 62.25 ? 2D LV Mass Index ? 74.28 ?g/m 2 ? Endocardial FS ? 37.03 ?% ? FS Vs Stress ? 37.03 ?% ? Cardiac Geometry: ?? Name ? Value ?Units ?Z-Score ?Min ?Max ?? M-Mode LV Mass ? 139.28 ? g ? M-Mode LV Mass Index ? 71.79 ?g/m 2 ? LV Diastolic Long Prescott Epicardial Diamet er ? 9.92 ? cm ? LV Diastolic Epicardial Cross-Sectional Area ? 32.04 ?cm 2 ? LV Systolic Long [place] Diameter ? 7.20 ? cm ? LV Systolic Cross-sectional Area ? 9.94 ? cm 2 ? LV Diastolic Long [place] Diameter ? 8.89 ? cm ? LV Diastolic Cross-sectional Area ? 16.30 ?cm 2 ? LV Midwall Diastolic Dimension ? 5.67 ? cm ? 2D Left Atrial Diameter ? 2.58 ? cm ? M-Mode LV Mass / Height ? 82.66 ?g/m ? M-Mode LV Mass / Height 2.7 ? 34.05 ?g/m ?19.4 ?38.6 ? Aorta: ?? Name ? Value ?Units ?? Ao Root Diameter ? 2.69 ? cm ? Analysis M-Mode Wall Stress: ?? Name ? Value ?Units ?? LV Maximum Dimension ? 4.78 ? cm ? [place]'s Name: TRINITY CARTER MD Date/time of reading: Jun 09 2009 - 1:27:47 PM Report created at 1:29:08 PM on Tuesday, June 09, 2009 Procedure Note 06/09/2009 Patient Name: BASILIO BOUCHER Chart Number: [id number] Site Location: Date of Appt: Tuesday, June 09, 2009, 8:35 AM Pediatric Echocardiogram Report Demographics and Visit Data: : 1970. Age: 39y/3m/18d. BSA (m 2): 1.94. Height (cm): 168.5. Weight (kg): 79.1. BMI (kg/m 2): 27.86. Patient location: [facility]. Person requesting test: TIMA BARON MD Computer Installation Engineer: Daiana Murillo. Reason for test: color/pulse Doppler. Re ferral diagnosis: S/P HODGKINS DISEASE. Procedure Description: ECHOCARDIOGRAM. Summary: Status post adriamycin therapy. No abnormality seen. Normal left ventricular size, wall thick ness and systolic function. Normal right ventricular size with quali tatively good right ventricular systolic function. Normal Doppler study of the intracardiac valves. No intracardiac masses seen. Compared with last study, 05/06/08, no si gnificant change. Findings: Veins and Atria: >> Normal Left Atrium >> Normal Right Atrium A-V Canal: >> Normal Tricuspid Valve Trivial tricuspid regurgitation. By tric uspid regurgitation jet, the estimated right ventricular pressure is approximately 20 mmHg plus right atrial pressure. >> Normal Mitral Valve No significant mitral regurgitation. Ventricles: >> Global left ventricular dysfunction, ruled out Normal left ventricular size, wall thick ness and systolic function with no significant regional wall motion abnorma lities appreciated. >> Left ventricular dilation or enlargem ent, ruled out >> Right ventricular dysfunction global, ruled out Qualitatively good right ventricular sys tolic function. >> Right ventricular dilation or enlarge ment, ruled out Conotruncus: >> Aortic regurgitation, ruled out No aortic regurgitation seen. >> Normal Pulmonary Valve Pericardium: (No abnormalities seen) Other: >> S/p adriamycin therapy >> Intracardiac mass, ruled out No intracardiac mass or thrombus seen. Measures: Systemic Arterial Function: Name Value Units Systolic BP 127 mmHg Diastolic BP 62 mmHg Pulse Pressure 65 mmHg Mean BP 83.7 mmHg 2D: Name Value Units LV Diastolic Volume Index (Bullet) 62.25 mL/m 2 M-Mode: Name Value Units Z-Score Min Max LV Diastolic Septal Thickness 0.84 cm -1.16 0.74 1.39 LV Diastolic Dimension 4.78 cm -1.09 4.45 6.15 LV Diastolic Wall Thickness 0.89 cm -0.71 0.76 1.26 LV Systolic Dimension 3.01 cm -1.48 2.86 4.31 LV Fractional Shortening 37.03 % LV Systolic Function: Name Value Units LV Diastolic Volume (Bullet) 120.76 mL LV Systolic Volume (Bullet) 59.64 mL LV Ejection Fraction (Bullet) 50.61 % 2D LV Mass 144.11 g 2D LV Volume Index 62.25 2D LV Mass Index 74.28 g/m 2 Endocardial FS 37.03 % FS Vs Stress 37.03 % Cardiac Geometry: Name Value Units Z-Score Min Max M-Mode LV Mass 139.28 g M-Mode LV Mass Index 71.79 g/m 2 LV Diastolic Long Prescott Epicardial Diamet er 9.92 cm LV Diastolic Epicardial Cross-Sectional Area 32.04 cm 2 LV Systolic Long [place]cott Diameter 7.20 cm LV Systolic Cross-sectional Area 9.94 cm 2 LV Diastolic Long [place] Diameter 8.89 cm LV Diastolic Cross-sectional Area 16.30 cm 2 LV Midwall Diastolic Dimension 5.67 cm 2D Left Atrial Diameter 2.58 cm M-Mode LV Mass / Height 82.66 g/m M-Mode LV Mass / Height 2.7 34.05 g/m 19.4 38.6 Aorta: Name Value Units Ao Root Diameter 2.69 cm Analysis M-Mode Wall Stress: Name Value Units LV Maximum Dimension 4.78 cm [place]'s Name: TRINITY CARTER MD Date/time of reading: Jun 09 2009 - 1:27:47 PM Report created at 1:29:08 PM on Tuesday, June 09, 2009 Parviz Baron MD CARDIAC ECHO ORDERABLES documented in this encounter Visit Diagnoses Not on filedocumented in this encounter Care Teams Business Unit Controller Relationship Specialty Start Date End Date Parviz Baron MD PCP - General 10/01/08 [address] [place] [address] documented as of this encounter
--- OUTSIDE RECORDS SUMMARY | 2022-05-08 00:47 | XMS_ITS | Encounter Summary ---
:1970 Author Organization [facility] Address [address] [place] [address] Care Team Providers Name Role Phone Parviz Baron MD Primary Care Provider Encounter Details Date Type Department Care Team Description 01/17/2005 Before [facility] - Kristie Becerra MD Converted Visit Maple conversion FA HOUSESTAFF MAIL (Maple) [address] [facility] [address] [place] [address] [place] [address] Social History Tobacco Use Types Packs/Day Years Used Date Smoking Tobacco: Never Assessed Sex Assigned at Date Recorded Not on file documented as of this encounter Plan of Treatment Not on filedocumented as of this encounter Visit Diagnoses Evaluation - Dain, Conv Case Management Assistant - 08/05/2009 0216 EST DIVISION OF ENDOCRINOLOGY NEW PATIENT EVALUATION - 01/17/2005 Yakov Pollard MD [facility] [place] [address] [place] [address] Pollard: We had the pleasure of seeing our mutual patient, Jose Juan Wharton at the endocrinology clinic for evaluation of a thyroid nodule. As I understand, Mr. Wharton was diagnosed with stage I Hodgkin's disease in 1977 and had mantle radiation in the same year. 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 He has had thyroid function tests done at every visit and I understand he is on Synthroid 150 mcg. every day. A thyroid ultrasound has been done every two years. A thyroid ultrasound was done on 12/13/2002, and he had a recent one done in December 2004. Based on the reports, the right lobe of the thyroid gland measured 38 by 8 by 12, and the left lobe measures 33 by6 by 9 mm. The thyroid isthmus was 3 mm. in thickness. They have identified five nodules, three of which are identified in his previous ultrasound. The nodule in the medial right thyroid gland has increased in dimension from 13 by 13 by 6 to 14 by 16 by 6 mm. Today he presents with his and mother for evaluation. He denies any symptoms of fatigue, changein appetite, weight, or change in mood. He does not have any sleep disturbances, no change in energylevels. He does not have any change in bowel habits, no history of dysphagia or dysphonia. Past medical history: Stage I Hodgkin's disease diagnosed on 09/23/1977, nodular sclerosing. He had mantle radiation and staging splenectomy. Complications of therapy: Hypothyroidism, on 150 mcg. of Synthroid. Social history: He is , lives with his and has three children. 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 He does not smoke or use alcohol. Family history: His mother is healthy, father is from a motor vehicle accident. He has one brother who is healthy. Review of data: Free T4 1.7, TSH 0.7 in December 2002. Free T4 of 1.5 and TSH 2.1 in December 2003. Free T4 of 1.4 and TSH of 2.20 in December 2004. An ultrasound in December 2004 is as described above. Current medications include: Synthroid 150 mcg., Penicillin VK 250 mg. BID. On physical examination: BP 120/75, pulse 86, weight 180, height 5 feet 6 ?? inches. In general, this is a pleasant young man in no acute distress. HEENT: Extraocular movements intact, no evidence of lid lag, stare or exophthalmus. Heart: Regular rate and rhythm. Lungs are clear to auscultation bilaterally. Abdomen is soft and nontender, no organomegaly. The lower extremities reveal no edema. Examination of the neck reveals a thyroid gland which is normal in size, firm in texture, with multiple nodules, 1 cm. nodule could be palpated on the right middle lobe. The neck subcutaneous tissue israther firm and tethered, secondary to the long-term effects of his radiation. ASSESSMENT AND PLAN: This is a 34 year old male presenting with multinodular goiter, S/P radiation treatment for Hodgkin's disease. An ultrasound done at the bedside today showed a 0.9 by 0.6 by 0.5 cm. nodule on the rightside. The lesions were hypoechoic in nature, isthmus measured at 3 mm. Given his gender, age, history of Hodgkin's and radiation treatment, it would be prudent to do a fine needle aspiration cytology to rule out malignancy, which seems to be unlikely based on the size of the nodule and the appearance on the ultrasound. However, given the size, and the fact that his neck subcutaneous tissue is rather firm and tethered, we believed that our equipment in the outpatient clinic would not yield an optimal aspirate. Hence, he is scheduled for an ultrasound-guided fine needle aspiration with the hospital-based radiology division. We will give him a call after the scheduling. I have ordered a free T4, TSH and thyroid peroxidase antibody levels to check for evidence of chronic lymphocytic thyroiditis. Will schedule a followup visit in three months. If you have any questions or concerns, please do nothesitate to call us. Thank you for giving us this opportunity to participate in the care of this pleasant gentleman. ADDENDUM: TPO antibody was positive, concistent with thyroiditis. FNAC done by radiology was not succesful. Hence, I have scheduled a visit with Dr. Villa for surgical open thyroid biopsy. Although these nodules may represent thyroiditis, papillary thyroid cancer can co-exist in this context, and definitivediagnosis is needed. I saw and examined the patient with Dr. Petrona Becerra. I agree with the HPI, exam findings and the plan of care as outlined above. I have documented any additions/changes in the body of the note. Sincerely, Edited and Signed by Yolanda Valdez MD,PHD 02/08/2005 09:02 Reviewed by ALISON Chow 02/03/2005 12:31 Arley Benson MBBSMuriel H Nathan, MD,PHD Dictated by: ALISON Chow Yolanda Valdez MD,PHD D: - ALISON Chow A - MR Job ID: Document ID: [id number] cc: MD Parviz Reid MD documented in this encounter Care Teams Golf Club Weigher Relationship Specialty Start Date End Date Parviz Baron MD PCP - General 10/01/[address] [place] [address] documented as of this encounter
--- OUTSIDE RECORDS SUMMARY | 2022-05-08 00:47 | XMS_ITS | Encounter Summary ---
:1970 Author Organization [facility] Address [address] [place] [address] Care Team Providers Name Role Phone Parivz Baron MD Primary Care Provider Encounter Details Date Type Department Care Team Description 06/09/2009 Hospital Encounter [facility] Campos Davis MD Pulmonary Function Lab [address] [place] [address] [place] [address] [place] [address] [phone] Social History Tobacco Use Types Packs/Day Years Used Date Smoking Tobacco: Never Assessed Sex Assigned at Date Recorded Not on file documented as of this encounter Discharge Disposition Disposition Code Departure Means Destination Auto Discharge Home documented in this encounter Procedure Notes Physician Worrell MD - 06/09/2009 0000 ESTAssociated Order(s): ORDERS - SCANNED; ORDERS - SCANNED documented in this encounter Plan of Treatment Not on filedocumented as of this encounter Procedures Procedure Name Priority Date/Time Associated Diagnosis Comme nts ORDERS - SCANNED 03/07/2010 23:18 EDT Res ults for this procedure are i n the results section. documented in this encounter Results ORDERS - SCANNED (03/07/2010 23:18 EDT) Specimen (Source) Anatomical Collection Method Collection Time Re ceived Time Location / / Volume Laterality 03/07/2010 23:18 EDT Narrative This result has an attachment that is no t available. Procedure Note InpatientPhysician MD - 06/09/2009 0: 00 EST Physician Inpatient MD ADMISSION ORDERABLES Performing Organization Address City/State/ZIP Code Phon e Number [facility] POINT OF CARE documented in this encounter Visit Diagnoses Not on filedocumented in this encounter Care Teams Claim Rep Relationship Specialty Start Date End Date Parviz Baron MD PCP - General 10/01/08 [address] [place] [address] documented as of this encounter
--- OUTSIDE RECORDS SUMMARY | 2022-05-08 00:47 | XMS_ITS | Encounter Summary ---
:1970 Author Organization [facility] Address [address] [place] [address] Care Team Providers Name Role Phone Parviz Baron MD Primary Care Provider Reason for Visit Reason Comments Follow-up Follow up for carotid arteri es Encounter Details Date Type Department Care Team Description 06/30/2010 Office Visit [facility] Darlyn Wakefield P AD (peripheral Vascular Surgery - MD artery disease) Main [address] (Primary Dx) [address] [place] [address] [place], [address] [place] [address] (Wo rk) Social History Tobacco Use Types Packs/Day Years Used Date Smoking Tobacco: Never Alcohol Use Standard Drinks/Week Comments Yes 40 (1 standard drink = 0.6 oz pure alcoh ol) Sex Assigned at Date Recorded Not on file documented as of this encounter Last Filed Vital Signs Vital Sign Reading Time Taken Comments Blood Pressure 146/74 06/30/2010 1258 EST Pulse - - Temperature - - Respiratory Rate - - Oxygen Saturation - - Inhaled Oxygen Concentration - - Weight - - Height - - Body Mass Index - - documented in this encounter Progress Notes Darlyn Quijano MD - 07/01/20102046 EST DIVISION OF VASCULAR SURGERY PROGRESS/FOLLOWUP NOTE - 06/30/2010 SUBJECTIVE: Mr. Wharton comes in today for routine followup. He is a 40-year-old man who has a history of neck radiation and cervical lymph node dissection for Hodgkin's disease when he was in third grade. He was found incidentally to have a right carotid bruit, and we saw him back in August where evaluation revealed a hemodynamically significant stenosis in the mid right common carotid artery. He has been on a baby aspirin and he denies any symptoms of unilateral visual loss or weakness, numbness or tingling. He has had no aphasia. He has no risk factors for vascular disease and does not have any a therosclerosis in the typical location at the carotid bifurcation. Our thought was that this was likely related to the history of neck radiation. In the office today, he states he has been doing well since we saw him last August and has no new medical problems. OBJECTIVE: On exam today, he is alert and oriented, in no acute distress. Blood pressure is 146/74. He has a harsh right carotid bruit. His lungs are clear and his heart is regular without murmur. He is grossly neurologically intact. Review of his duplex reveals stable findings of a hemodynamically significant stenosis in the right common carotid artery. The internal carotid arteries were without evidence of significant stenosis, and his vertebral flow was antegrade bilaterally. IMPRESSION: Mr. Wharton has stable findings of a stenosis in the mid right common carotid artery. There are not criteria to suggest when these should be intervened upon, unlike the carotid bifurcation, and I think that his process is likely related to his history of radiation. At this point, I would recommend that he stay on a baby aspirin and if he were to become symptomatic, then we would see him back again for potential intervention. He understands this and I am happy to see him in the future asneeded. Electronically Signed by Darlyn Quijano MD 07/01/2010 20:47 Darlyn Quijano MD - Darlyn Quijano MD - ALBA Job ID: SM Doc ID: [id number] Ext Doc ID: [id number] cc: Parviz Baron MD Darlyn Quijano MD - 06/30/2010 1351 EST This office note has been dictated. documented in this encounter Plan of Treatment Not on filedocumented as of this encounter Visit Diagnoses Diagnosis PAD (peripheral artery disease) - Primar y Peripheral vascular disease, unspecified documented in this encounter Historical Medications This list may reflect changes made after this encounter. Medication Sig Dispensed Refills Start Date End Date MULTI-VITAMIN ORAL Take by mouth daily. 0 011 penicillin v potassium Take 250 mg by mouth 0 (VEETID) 250 mg tablet 2 times daily. aspirin chewable 81 mg Take 81 mg by mouth 0 tablet daily. FLUTICASONE PROPIONATE by Nasal route as 0 2010 (FLONASE NASL) needed. added in this encounter Care Teams Gas Well Drilling Manager Relationship Specialty Start Date End Date Parviz Baron MD PCP - General 10/01/08 [address] [place] [address] documented as of this encounter
--- OUTSIDE RECORDS SUMMARY | 2022-05-08 00:47 | XMS_ITS | Encounter Summary ---
:1970 Author Organization [facility] Address [address] [place] [address] Care Team Providers Name Role Phone Parviz Baron MD Primary Care Provider Encounter Details Date Type Department Care Team Description 11/21/2008 [facility] [address] [place] [address] Social History Tobacco Use Types Packs/Day Years Used Date Smoking Tobacco: Never Assessed Sex Assigned at Date Recorded Not on file documented as of this encounter Discharge Disposition Disposition Code Departure Means Destination Home or Self Assisted documented in this encounter Procedure Notes InpatientPhysician MD - 11/22/2008 09 EDT Physician Worrell MD - 11/22/2008 09 EDTAssociated Order(s): ORDERS - SCANNED; ORDERS - SCANNED documented in this encounter Miscellaneous Notes Scanned Note-Null - Physician Worrell MD - 11/22/2008 0928 EDT Scanned Note-Null - Physician Worrell MD - 11/22/2008 09 EDT Brief Op Note - Physician Worrell MD - 11/22/2008 09 EDT documented in this encounter Plan of Treatment Not on filedocumented as of this encounter Procedures Procedure Name Priority Date/Time Associated Diagnosis Comme nts ORDERS - SCANNED 11/22/2008 9:26 EDT Resu lts for this procedure are i n the results section. documented in this encounter Results ORDERS - SCANNED (11/22/2008 9:26 EDT) Specimen (Source) Anatomical Collection Method Collection Time Re ceived Time Location / / Volume Laterality 11/22/2008 9:26 EDT Narrative 11/22/2008 10:08 EDT This result has an attachment that is no t available. Ordered by an unspecified provider. Transcriptions Inpatient, MD Piero - 11/22/2008 9: 26 EDT Physician Inpatient MD ADMISSION ORDERABLES documented in this encounter Visit Diagnoses Not on filedocumented in this encounter Care Teams Woven Label Designer Relationship Specialty Start Date End Date Parviz Baron MD PCP - General 10/01/08 [address] [place] [address] documented as of this encounter
--- OUTSIDE RECORDS SUMMARY | 2022-05-08 00:47 | XMS_ITS | Encounter Summary ---
:1970 Author Organization [facility] Address [address] [place] [address] Care Team Providers Name Role Phone Parviz Baron MD Primary Care Provider Encounter Details Date Type Department Care Team Description 12/13/2005 Results Only [facility] Yakov Pollard MD Pediatric Hematology & Oncology - [address] [address] Social History Tobacco Use Types Packs/Day Years Used Date Smoking Tobacco: Never Assessed Sex Assigned at Date Recorded Not on file documented as of this encounter Plan of Treatment Not on filedocumented as of this encounter Procedures Procedure Name Priority Date/Time Associated Comments Diagnosis COMPLETE BLOOD COUNT Routine 12/13/2005 12:20 Res ults for this AND DIFFERENTIAL EDT procedure a re in the results section. TSH Routine 12/13/2005 12:20 Results for this EDT procedure are i n the results section. T4 FREE Routine 12/13/2005 12:20 Results for this EDT procedure are i n the results section. documented in this encounter Results (ABNORMAL) TSH (12/13/2005 12:20 EDT) P athologist Signature TSH 24.55 (H) 0.35 - 5.00 [facility] uIU/mL LAB Specimen Anatomical Collection Method Collection Time Receive d Time (Source) Location / / Volume Laterality 12/13/2005 12:20 12/13/2005 EDT 14:23 EDT Yakov Pollard MD CHEMISTRY & BLOOD GAS ORDERA BLES Performing Organization Address City/State/ZIP Code Phon e Number [facility] [address] [place] [address] SERVICES [facility] [address] [place] [address] T4 FREE (12/13/2005 12:20 EDT) P athologist Signature Free T4 1.2 0.8 - 1.8 [facility] ng/dL LAB Specimen Anatomical Collection Method Collection Time Receive d Time (Source) Location / / Volume Laterality 12/13/2005 12:20 12/13/2005 EDT 14:23 EDT Yakov Pollard MD CHEMISTRY & BLOOD GAS ORDERA BLES Performing Organization Address City/State/ZIP Code Phon e Number [facility] [address] [place] [address] SERVICES [facility] [address] [place] [address] (ABNORMAL) HEMAGRAM AND DIFFERENTIAL (12/13/2005 12:20 EDT) Patholo gist Method Time Signature WBC 8.78 4.0 - JUAN 10.4 [facility] K/cmm RBC 5.17 4.36 - JUAN 5.78 [facility] M/cmm Hemoglobin 15.7 13.8 - JUAN 17.3 [facility] gm/dl HCT 46.4 39.5 - JUAN 50.2 % [facility] MCV 90 81 - 95 [facility] fl [facility] MCH 30.3 27.6 - JUAN 33.0 pg [facility] MCHC 33.7 32.8 - JUAN 36.4 [facility] gm/dl PLT 407 (H) 141 - 320 JUAN K/cmm [facility] RDW-CV 13.3 11.8 - JUAN 14.1 % [facility] Neutrophils 54.1 45.5 - JUAN 79.7 % [facility] Lymphocytes 33.6 15.0 - JUAN 46.8 % [facility] Monocytes 8.3 1.8 - JUAN 12.0 % [facility] Eosinophils 3.5 0.6 - 6.9 JUAN % [facility] Basophils 0.5 0.2 - 1.4 JUAN % [facility] ABS Neutrophils 4.75 2.20 - JUAN 8.85 [facility] K/cmm ABS Lymphs 2.95 1.09 - JUAN 3.30 [facility] K/cmm ABS Monocytes 0.73 0.1 - 0.8 JUAN K/cmm [facility] ABS Eosinophils 0.31 0.03 - JUAN 0.61 [facility] K/cmm ABS Basophils 0.04 0.01 - JUAN 0.11 [facility] K/cmm Type of Diff: Automated [facility] Specimen Anatomical Collection Method Collection Time Receive d Time (Source) Location / / Volume Laterality 12/13/2005 12:20 12/13/2005 EDT 14:23 EDT Yakov Pollard MD PACKAGES & DNA PROBE ORDERAB LES Performing Organization Address City/State/ZIP Code Phon e Number [facility] [address] [place] [address] [facility] [address] [place] [address] documented in this encounter Visit Diagnoses Not on filedocumented in this encounter Care Teams Afterschool Relationship Specialty Start Date End Date Parviz Baron MD PCP - General 10/01/08 [address] [place] [address] documented as of this encounter
--- OUTSIDE RECORDS SUMMARY | 2022-05-08 00:47 | XMS_ITS | Encounter Summary ---
:1970 Author Organization [facility] Address [address] [place] [address] Care Team Providers Name Role Phone Parviz Baron MD Primary Care Provider Encounter Details Date Type Department Care Team Description 05/04/2005 Results Only [facility] ENT - Rebecca Roberts MD [facility] [address] [place], [place] [id number] Social History Tobacco Use Types Packs/Day Years Used Date Smoking Tobacco: Never Assessed Sex Assigned at Date Recorded Not on file documented as of this encounter Plan of Treatment Not on filedocumented as of this encounter Procedures Procedure Name Priority Date/Time Associated Diagnosis Comme [facility] SURGICAL PATHOLOGY Routine 05/04/2005 0:00 EST Re sults for this procedure are i n the results section. documented in this encounter Results SURGICAL PATHOLOGY (05/04/2005 0:00 EST) Component Value Ref Test Analysis Performed At [facility] Method Time Signature Pathology SURGICAL PATHOLOGY REPORT ANTONIA NUGENT Report: Reports generated via electronic interface contain maryama l data; MARCUS ALSTON however they are lacking the format of the original report. Caution should be taken when reading/interpreting unformatte d reports. Name: ? CODY WHARTON ? Accession #: ? [id number] ? : ? 1970 (Age: 35) ??M ? Collect Date: ? 05/04/2005 ? Location: ? M006 ? Receive Date: ? 05/05/2005 ? Provider: SHANIQUA VILLA MD Copy to: PARVIZ BARON MD ? Final Pathologic Diagnosis: ? Thyroid, total thyroidectomy: 1. 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 2. ?Chronic lymphocytic thyroiditis. Comment: ? Histologic sections show multinodular goiter with sev eral dominant adenomatous nodules, the lar gest of which measures 0.4 cm in greatest dimension. Sections (A2-A4) show a Hurthle cell nodule measuring 0.3 c m in greatest dimension. ??The lesion is unencapsulate d and there is no evidence of vascular invasion or infiltration of the surrounding thyroid parenchyma. ??This case was reviewed in intradepartmental consultati on. ??Results have been discussed with Dr. Shaniqua Villa on 05/10/05. ??(Dr. Olivarez)/[facility] Document reviewed and electronically signed by: Mirlande Olivarez MD Report ??Date: 05/11/2005 13:00 By the signature above, the attending physician certifies th at he/she has personally conducted a gross and/or microscopic examin ation of the described specimens and rendered or confirmed the above diagnosis. Specimen(s) Received: ? Total thyroid, suture @ upper anterior isthmus Clinical History: ? Multinodular goiter Gross Description: ? Received in normal sa line labelled Wharton and total thyroid suture at upper anterior isthmus is a product of a total thyroidectom y which has a combined weight of 5.73 grams and is surfaced by little-p urple, intact capsule. The right lobe measures 3.2 cm superior to inferior, 1.8 cm from right to left and averages 0.6 cm anterior to posterior. ??The left lobe measures 2.8 cm from superior to inferior, 1.4 cm from right to left and averages 0.4 cm anterior to posterior. ??The region of t he isthmus measures 0.8 x 0.5 x 0.3 cm. ??There is a suture designating the anterior isthmus as per the [facility] nying requisition slip. ??Prior to sectioning, the posterior aspect is inked blue and the remaining specimen inked black. ??The region of the isthmus is inked r ed on the cut surfaces and is designated as a non-true margin. ??Upon se ctioning, the cut surfaces of the right lobe reveal a little-yellow 0.4 x 0.3 x 0.2 cm eccentric nodule on the right aspect. ??The cut surfaces of the left lobe reveal a central 0.3 cm little-yellow spherical nodule which abuts the pos terior central aspect. The remaining parenchyma is red-brown and glistening. ??The specimens are serially sectioned from superior to inferior and are entirel y submitted as follows: ?? BLOCK MATT A1 ?Right lobe-superior end, perpendicular sect ion A2 ?Right lobe-central section A3 ?Right lobe to include the 0.4 cm little-yellow nodule A4 ?Right lobe-remaining central sections A5 ?Right lobe-inferior margin, perpendicular section bisected A6 ?Left lobe-superior margin, perpendicu lar sections trisected A7 ?Left lobe-central section A8 ?Left lobe to include the little-yellow nodule A9 ?Remaining central section A10 ?Left lobe-inferior margin, perpendic ular sections serially sectioned (Trevon Washington)/mpl End of Report Specimen (Source) Anatomical Collection Method Collection Time Re ceived Time Location / / Volume Laterality 05/04/2005 05/05/2005 10:0 5 EST Shaniqua Villa MD PATHOLOGY ORDERABLES Performing Organization Address City/State/ZIP Code Phon e Number [facility] [address] [place] [address] SERVICES [facility] [address] [place] [address] documented in this encounter Visit Diagnoses Not on filedocumented in this encounter Care Teams Whip Sawyer Relationship Specialty Start Date End Date Parviz Baron MD PCP - General 10/01/08 [address] [place] [address] documented as of this encounter
--- OUTSIDE RECORDS SUMMARY | 2022-05-08 00:47 | XMS_ITS | Encounter Summary ---
:1970 Author Organization [facility] Address [address] [place] [address] Care Team Providers Name Role Phone Parviz Baron MD Primary Care Provider Encounter Details Date Type Department Care Team Description 07/23/2010 Abstract Used for ABSTRACTING Data Parviz Baron MD [phone] [address] [place], [place] [address] (Wo rk) Social History Tobacco Use Types Packs/Day Years Used Date Smoking Tobacco: Never Alcohol Use Standard Drinks/Week Comments Yes 2 (1 standard drink = 0.6 oz pure alcoho l) Sex Assigned at Date Recorded Not on file documented as of this encounter Plan of Treatment Not on filedocumented as of this encounter Visit Diagnoses Not on filedocumented in this encounter Care Teams Overnight Houseperson Relationship Specialty Start Date End Date Parviz Baron MD PCP - General 10/01/08 [address] [place] [address] documented as of this encounter
--- OUTSIDE RECORDS SUMMARY | 2022-05-08 00:47 | XMS_ITS | Encounter Summary ---
:1970 Author Organization [facility] Address [address] [place] [address] Care Team Providers Name Role Phone Parviz Baron MD Primary Care Provider Encounter Details Date Type Department Care Team Description 12/09/2003 Results Only [facility] Yakov Pollard MD Pediatric Hematology & Oncology - [address] [address] Social History Tobacco Use Types Packs/Day Years Used Date Smoking Tobacco: Never Assessed Sex Assigned at Date Recorded Not on file documented as of this encounter Plan of Treatment Not on filedocumented as of this encounter Procedures Procedure Name Priority Date/Time Associated Comments Diagnosis SLIDE REQUEST Routine 12/09/2003 11:48 Results fo r this EDT procedure are i n the results section. COMPLETE BLOOD COUNT Routine 12/09/2003 11:48 Res ults for this AND DIFFERENTIAL EDT procedure a re in the results section. TSH Routine 12/09/2003 11:48 Results for this EDT procedure are i n the results section. T4 FREE Routine 12/09/2003 11:48 Results for this EDT procedure are i n the results section. documented in this encounter Results TSH (12/09/2003 11:48 EDT) P athologist Signature TSH 2.16 0.35 - 5.50 [facility] uIU/ml LAB Specimen Anatomical Collection Method Collection Time Receive d Time (Source) Location / / Volume Laterality 12/09/2003 11:48 12/09/2003 EDT 11:50 EDT Yakov Pollard MD CHEMISTRY & BLOOD GAS ORDERA BLES Performing Organization Address City/State/ZIP Code Phon e Number [facility] [address] [place] [address] SERVICES [facility] [address] [place] [address] SLIDE REQUEST (12/09/2003 11:48 EDT) [facility] Method Time Signature Note A smear is JUAN filed in the [facility] Hematology lab Specimen Anatomical Collection Method Collection Time Receive d Time (Source) Location / / Volume Laterality 12/09/2003 11:48 12/09/2003 EDT 11:50 EDT Yakov Pollard MD HEMATOLOGY & PF4 ORDERABLES Performing Organization Address City/State/ZIP Code Phon e Number [facility] [address] [place] [address] SERVICES [facility] [address] [place] [address] T4 FREE (12/09/2003 11:48 EDT) athologist Signature Free T4 1.5 0.8 - 1.8 [facility] ng/dl LAB Specimen Anatomical Collection Method Collection Time Receive d Time (Source) Location / / Volume Laterality 12/09/2003 11:48 12/09/2003 EDT 11:50 EDT Yakov Pollard MD CHEMISTRY & BLOOD GAS ORDERA BLES Performing Organization Address City/[facility]/ZIP Code Phon e Number [facility] [address] [place] [address] SERVICES [facility] [address] [place] [address] (ABNORMAL) HEMAGRAM AND DIFFERENTIAL (12/09/2003 11:48 EDT) [facility] Method Time Signature WBC 11.20 (H) 4.0 - JUAN 10.4 [facility] K/cmm RBC 5.88 (H) 4.36 - JUAN 5.78 [facility] M/cmm Hemoglobin 17.4 (H) 13.8 - JUAN 17.3 [facility] gm/dl HCT 51.8 (H) 39.5 - JUAN 50.2 % [facility] MCV 88 81 - 95 [facility] fl [facility] MCH 29.6 27.6 - JUAN 33.0 pg [facility] MCHC 33.6 32.8 - JUAN 36.4 [facility] gm/dl PLT 412 (H) 141 - 320 [facility] K/cmm [facility] RDW-CV 14.8 (H) 11.8 - JUAN 14.1 % [facility] Neutrophils 71.1 45.5 - JUAN 79.7 % [facility] Lymphocytes 18.1 15.0 - JUAN 46.8 % [facility] Monocytes 8.8 1.8 - JUAN 12.0 % [facility] Eosinophils 1.8 0.6 - 6.9 JUAN % [facility] Basophils 0.2 0.2 - 1.4 JUAN % [facility] ABS Neutrophils 7.96 2.20 - JUAN 8.85 [facility] K/cmm ABS Lymphs 2.02 1.09 - JUAN 3.30 [facility] K/cmm ABS Monocytes 0.98 (H) 0.1 - 0.8 J[facility] K/cmm [facility] ABS Eosinophils 0.21 0.03 - JUAN 0.61 [facility] K/cmm ABS Basophils 0.03 0.01 - JUAN 0.11 [facility] K/cmm Type of Diff: Automated [facility] Specimen Anatomical Collection Method Collection Time Receive d Time (Source) Location / / Volume Laterality 12/09/2003 11:48 12/09/2003 EDT 11:50 EDT Yakov Pollard MD PACKAGES & DNA PROBE ORDERAB LES Performing Organization Address City/State/ZIP Code Phon e Number [facility] [address] [place] [address] SERVICES [facility] [address] [place] [address] documented in this encounter Visit Diagnoses Not on filedocumented in this encounter Care Teams Christmas Tree Grader Relationship Specialty Start Date End Date Parviz Baron MD PCP - General 10/01/08 [address] [place] [address] documented as of this encounter
--- OUTSIDE RECORDS SUMMARY | 2022-05-08 00:47 | XMS_ITS | Encounter Summary ---
:1970 Author Organization [facility] Address [address] [place] [address] Care Team Providers Name Role Phone Unavailable Primary Care Provider Unavailable Encounter Details Date Type Department Care Team Description 10/23/2006 Hospital Encounter [facility] - Yolanda Valdez MD PhD [address] [place] [phone] Maple conversion Unknown, Provider, [address] [place], [place] [id number] Social History Tobacco Use Types Packs/Day Years Used Date Smoking Tobacco: Never Assessed Sex Assigned at Date Recorded Not on file documented as of this encounter Discharge Disposition Disposition Code Departure Means Destination Auto Discharge documented in this encounter Plan of Treatment Not on filedocumented as of this encounter Visit Diagnoses Not on filedocumented in this encounter
--- OUTSIDE RECORDS SUMMARY | 2022-05-08 00:47 | XMS_ITS | Encounter Summary ---
:1970 Author Organization [facility] Address [address] [place] [address] Care Team Providers Name Role Phone Unavailable Primary Care Provider Unavailable Encounter Details Date Type Department Care Team Description 05/06/2008 Hospital Encounter [facility] [address] [place] [address] Social History Tobacco Use Types Packs/Day Years Used Date Smoking Tobacco: Never Assessed Sex Assigned at Date Recorded Not on file documented as of this encounter Discharge Disposition Disposition Code Departure Means Destination Auto Discharge documented in this encounter Plan of Treatment Not on filedocumented as of this encounter Procedures Procedure Name Priority Date/Time Associated Comments Diagnosis COMPLETE BLOOD COUNT Routine 05/06/2008 9:35 Resu lts for this AND DIFFERENTIAL EST procedure a re in the results section. MAGNESIUM Routine 05/06/2008 9:35 Results for this EST procedure are i n the results section. COMPREHENSIVE METABOLIC Routine 05/06/2008 9:35 R esults for this PANEL (CMP) EST procedure are i n the results section. MA MAMMO DIAG BILAT 05/06/2008 8:44 Resul ts for this DIGITAL EST procedure are i n the results section. ECHOCARDIOGRAM 05/06/2008 8:40 Results fo r this EST procedure are i n the results section. documented in this encounter Results HEMAGRAM AND DIFFERENTIAL (05/06/2008 9:35 EST) [facility] gist Method Time Signature WBC 9.19 4.0 - JUAN 10.4 [facility] K/cmm RBC 5.32 4.36 - JUAN 5.78 [facility] M/cmm Hemoglobin 16.0 13.8 - JUAN 17.3 [facility] gm/dl HCT 46.1 39.5 - JUAN 50.2 % [facility] MCV 87 81 - 95 [facility] fl [facility] MCH 30.1 27.6 - JUAN 33.0 pg [facility] MCHC 34.8 32.8 - JUAN 36.4 [facility] gm/dl PLT 256 141 - 320 J[facility]AN K/cmm [facility] RDW-CV 14.1 11.8 - JUAN 14.1 % [facility] Neutrophils 57.7 45.5 - JUAN 79.7 % [facility] Lymphocytes 30.2 15.0 - JUAN 46.8 % [facility] Monocytes 7.8 1.8 - JUAN 12.0 % [facility] Eosinophils 3.8 0.6 - 6.9 JUAN % [facility] Basophils 0.5 0.2 - 1.4 JUAN % [facility] ABS Neutrophils 5.30 2.20 - JUAN 8.85 [facility] K/cmm ABS Lymphs 2.78 1.09 - JUAN 3.30 [facility] K/cmm ABS Monocytes 0.72 0.1 - 0.8 J[facility]AN K/cmm [facility] ABS Eosinophils 0.35 0.03 - JUAN 0.61 [facility] K/cmm ABS Basophils 0.04 0.01 - JUAN 0.11 [facility] K/cmm Type of Diff: Automated [facility] Specimen Anatomical Collection Method Collection Time Receive d Time (Source) Location / / Volume Laterality 05/06/2008 9:35 05/06/2008 EST 10:10 EST Yakov Pollard MD PACKAGES & DNA PROBE ORDERAB LES Performing Organization Address City/State/ZIP Code Phon e Number [facility] [address] [place] [address] SERVICES [facility] [address] [place] [address] MAGNESIUM (05/06/2008 9:35 EST) P athologist Signature Magnesium 2.2 1.7 - 2.8 [facility] mg/dl LAB Specimen Anatomical Collection Method Collection Time Receive d Time (Source) Location / / Volume Laterality 05/06/2008 9:35 05/06/2008 EST 10:10 EST Yakov Pollard MD CHEMISTRY & BLOOD GAS ORDERA BLES Performing Organization Address City/[facility]/ZIP Code Phon e Number [facility] [address] [place] [address] SERVICES [facility] [address] [place] [address] (ABNORMAL) COMPREHENSIVE METABOLIC PANEL (05/06/2008 9:35 EST) P athologist Signature Potassium 4.8 3.5 - 5.0 [facility] mEq/L [facility] Sodium 141 136 - 145 [facility]AN mEq/L [facility] Chloride 105 96 - 110 [facility] mEq/L [facility] CO2 25 24 - 32 [facility] mEq/L [facility] Alkaline 71 38 - 126 J[facility] Phosphatase U/L [facility] Bilirubin, Total <0.5 0.2 - 1.3 JUAN mg/dl [facility] AST 49 (H) 15 - 46 JU[facility] U/L [facility] ALT 71 21 - 72 JUAN U/L [facility] Albumin 4.8 3.4 - 4.9 JUAN g/dl [facility] Total Protein 7.9 6.5 - 8.3 JUAN g/dl [facility] Creatinine 0.98 0.7 - 1.5 [facility] mg/dl [facility] GFR, Calculated >60 ml/min/1.7 [facility] 3m2 [facility] BUN 18 10 - 26 JUAN mg/dl [facility] Calcium 9.8 8.5 - 10.5 JUAN mg/dl [facility] Calculated 9.4 8.5 - 10.5 J[facility] Calcium mg/dl [facility] Glucose, Serum 84 70 - 100 JUAN mg/dl [facility] Fasting? No [facility] Specimen Anatomical Collection Method Collection Time Receive d Time (Source) Location / / Volume Laterality 05/06/2008 9:35 05/06/2008 EST 10:10 EST Yakov Pollard MD CHEMISTRY & BLOOD GAS ORDERA BLES Performing Organization Address City/[facility]/ZIP Code Phon e Number [facility] [address] [place] [address] SERVICES [facility] [address] [place] [address] MA MAMMO DIAG BILAT DIGITAL (05/06/2008 8:44 EST) Anatomical Region Laterality Modality Other Specimen (Source) Anatomical Collection Method Collection Time Re ceived Time Location / / Volume Laterality 05/06/2008 8:44 EST Narrative 10/20/2008 10:46 EDT male patient hodgkins disease treated with mantle radiation r/o breast cancer Comparison is made to films from 006 (bilateral) and films from 12/07/2004 (bilateral) and films fr om 12/09/2003. Bilateral Breast Findings: (CAD used to interpret diagnostic digital): The breasts are almost entirely fat. No significant masses, calcifications or other abnormalities ar e seen. IMPRESSION: BILATERAL BREASTS - CATEGORY 1 Negative, no evidence of malignancy. No further breast imaging follow up is recommended at this time. OVERALL ASSESSMENT - NEGATIVE END OF IMPRESSION With the patients history of Hodgkin's, it is up to the patient and his providers to continue with annual sc reening mammography. The patient will be notified of her/his breast imaging results via a lay letter from Radiology. ??Radiology w ill contact the patient directly regarding any findings which re quire additional imaging (Category 0) at this time. Procedure Note Ca Thurston MD, - 10/20/2008Forma tting of this note might be different from the original. male patient hodgkins disease treat ed with mantle radiation r/o breast cancer Comparison is made to films from 006 (bilateral) and films from 12/07/2004 (bilateral) and films fr 12/09/2003. Bilateral Breast Findings: (CAD used to interpret diagnostic digital): The breasts are almost entirely fat. No significant masses, calcifications or other abnormalities ar e seen. IMPRESSION: BILATERAL BREASTS - CATEGORY 1 Negative, no evidence of malignancy. No further breast imaging follow up is recommended at this time. OVERALL ASSESSMENT - NEGATIVE END OF IMPRESSION With the patients history of Hodgkin's, it is up to the patient and his providers to continue with annual sc reening mammography. The patient will be notified of her/his breast imaging results via a lay letter from Radiology. Radiology satya l contact the patient directly regarding any findings which re quire additional imaging (Category 0) at this time. Yakov Pollard MD IMG MAMMOGRAPHY ORDERABLES ECHOCARDIOGRAM (05/06/2008 8:40 EST) Anatomical Region Laterality Modality Other Specimen (Source) Anatomical Collection Method Collection Time Re ceived Time Location / / Volume Laterality 05/06/2008 8:40 EST Narrative 10/20/2008 8:41 EDT color/pulse Doppler Site Location: Date of Appt: Tuesday, May 06, 2008 , 8:40 AM Pediatric Echocardiogram Report Demographics and Visit Data: : 1970. ??Age: 38y/2m/15d. ??BSA (m 2): 1.98. ??Height (cm): 167. Weight (kg): 82.5. ??BMI (kg/m 2): 29.58 . ??Patient location: [facility]. Person requesting test: OMAR MENDEZ,RENATO ESCALANTE. ??Manager Location: [facility]. Reason for test: color/pulse Doppler. ?? Referral diagnosis: S/P HODGKINS DISEASE. Procedure Description: 2D ECHOCARDIOGRAM W/WO M-MODE. Summary: Normal atrioventricular and ventriculoar terial concordance. Normal cardiac anatomy and performance. S/p adriamycin therapy. No significant change from previous stud y. Atrial Situs: Solitus Ventricular Situs: D - Looped Arterial Situs: Solitus Findings: Veins and Atria: >> Normal Left Atrium >> Normal Right Atrium >> Intact Atrial Septum A-V Canal: >> Tricuspid regurgitation, trivial -of low velocity. >> Normal Tricuspid Valve >> Normal Mitral Valve Ventricles: >> Normal Right Ventricle >> Normal Left Ventricle -with satisfactory biventricular perform ance, and no outflow obstruction or abnormal hypertrophy. >> Intact Ventricular Septum Conotruncus: >> Pulmonary regurgitation, trivial -of low velocity. >> Normal Pulmonary Valve >> Normal Aortic Valve -trileaflet. Great Arteries: >> Patent ductus arteriosus, ruled out >> Normal Proximal Coronary Arteries Other: >> S/p adriamycin therapy Measures: Systemic Arterial Function: Name ? Value ?Units Systolic BP ? 120 ?mmH g Diastolic BP ? 59 ? mmH g Pulse Pressure ? 61.00 ?mmHg Mean BP ? 79.3 ? mmHg 2D: Name ? Value ?Units LV Diastolic Volume Index (Bullet) ? 54.99 ?mL/m 2 M-Mode: Name ? Value ?Units ?Z-Score ?Min ?Max LV Diastolic Septal Thickness ? 0.76 ? cm ? -1.85 ? 0.75 ?1.41 LV Diastolic Dimension ? 4.88 ? cm ? -0.95 ? 4.49 ?6.21 LV Diastolic Wall Thickness ? 0.78 ? cm ? -1.82 ? 0.76 ?1.27 LV Systolic Dimension ? 3.15 ? cm ? -1.14 ? 2.89 ?4.35 LV Fractional Shortening ? 35.45 ?% LV Systolic Function: Name ? Value ?Units LV Diastolic Volume (Bullet) ? 108.89 ? mL LV Systolic Volume (Bullet) ? 54.18 ?mL LV Ejection Fraction (Bullet) ? 50.24 ?% 2D LV Mass ? 107.61 ? g 2D LV Volume Index ? 54.99 2D LV Mass Index ? 54.35 ?g/m 2 Endocardial FS ? 35.45 ?% FS Vs Stress ? 35.45 ?% Cardiac Geometry: Name ? Value ?Units ?Z-Score ?Min ?Max M-Mode LV Mass ? 124.06 ? g M-Mode LV Mass Index ? 62.66 ?g/m 2 LV Diastolic Long [place] Epicardial Diamet er ? 9.18 ? cm LV Diastolic Epicardial Cross-Sectional Area ? 28.30 ?cm 2 LV Systolic Long [place] Diameter ? 7.38 ? cm LV Systolic Cross-sectional Area ? 8.81 ? cm 2 LV Diastolic Long [place] Diameter ? 8.27 ? cm LV Diastolic Cross-sectional Area ? 15.80 ?cm 2 LV Midwall Diastolic Dimension ? 5.66 ? cm 2D Left Atrial Diameter ? 2.67 ? cm M-Mode LV Mass / Height ? 74.29 ?g/m M-Mode LV Mass / Height 2.7 ? 31.07 ?g/m ?19.4 ?38.6 Aorta: Name ? Value ?Units Ao Root Diameter ? 2.47 ? cm [place]'s Name: ROS MIRANDA MD Date/time of reading: May 08 2008 - 11:41:39 AM Report created at 11:42:32 AM on May 08, 2008 Procedure Note Ros Miranda MD - 10/20/2008Formattin g of this note might be different from the original. color/pulse Doppler Site Location: Date of Appt: Tuesday, May 06, 2008 , 8:40 AM Pediatric Echocardiogram Report Demographics and Visit Data: : 1970. Age: 38y/2m/15d. BSA (m 2): 1.98. Height (cm): 167. Weight (kg): 82.5. BMI (kg/m 2): 29.58. Patient location: [facility]. Person requesting test: OMAR MENDEZ,RENATO ESCALANTE. Manager Location: [facility]. Reason for test: color/pulse Doppler. Re ferral diagnosis: S/P HODGKINS DISEASE. Procedure Description: 2D ECHOCARDIOGRAM W/WO M-MODE. Summary: Normal atrioventricular and ventriculoar terial concordance. Normal cardiac anatomy and performance. S/p adriamycin therapy. No significant change from previous stud y. Atrial Situs: Solitus Ventricular Situs: D - Looped Arterial Situs: Solitus Findings: Veins and Atria: >> Normal Left Atrium >> Normal Right Atrium >> Intact Atrial Septum A-V Canal: >> Tricuspid regurgitation, trivial -of low velocity. >> Normal Tricuspid Valve >> Normal Mitral Valve Ventricles: >> Normal Right Ventricle >> Normal Left Ventricle -with satisfactory biventricular perform ance, and no outflow obstruction or abnormal hypertrophy. >> Intact Ventricular Septum Conotruncus: >> Pulmonary regurgitation, trivial -of low velocity. >> Normal Pulmonary Valve >> Normal Aortic Valve -trileaflet. Great Arteries: >> Patent ductus arteriosus, ruled out >> Normal Proximal Coronary Arteries Other: >> S/p adriamycin therapy Measures: Systemic Arterial Function: Name Value Units Systolic BP 120 mmHg Diastolic BP 59 mmHg Pulse Pressure 61.00 mmHg Mean BP 79.3 mmHg 2D: Name Value Units LV Diastolic Volume Index (Bullet) 54.99 mL/m 2 M-Mode: Name Value Units Z-Score Min Max LV Diastolic Septal Thickness 0.76 cm -1.85 0.75 1.41 LV Diastolic Dimension 4.88 cm -0.95 4.49 6.21 LV Diastolic Wall Thickness 0.78 cm -1.82 0.76 1.27 LV Systolic Dimension 3.15 cm -1.14 2.89 4.35 LV Fractional Shortening 35.45 % LV Systolic Function: Name Value Units LV Diastolic Volume (Bullet) 108.89 mL LV Systolic Volume (Bullet) 54.18 mL LV Ejection Fraction (Bullet) 50.24 % 2D LV Mass 107.61 g 2D LV Volume Index 54.99 2D LV Mass Index 54.35 g/m 2 Endocardial FS 35.45 % FS Vs Stress 35.45 % Cardiac Geometry: Name Value Units Z-Score Min Max M-Mode LV Mass 124.06 g M-Mode LV Mass Index 62.66 g/m 2 LV Diastolic Long [place] Epicardial Diamet er 9.18 cm LV Diastolic Epicardial Cross-Sectional Area 28.30 cm 2 LV Systolic Long [place] Diameter 7.38 cm LV Systolic Cross-sectional Area 8.81 cm 2 LV Diastolic Long [place] Diameter 8.27 cm LV Diastolic Cross-sectional Area 15.80 cm 2 LV Midwall Diastolic Dimension 5.66 cm 2D Left Atrial Diameter 2.67 cm M-Mode LV Mass / Height 74.29 g/m M-Mode LV Mass / Height 2.7 31.07 g/m 19.4 38.6 Aorta: Name Value Units Ao Root Diameter 2.47 cm [place]'s Name: ISABELLA MENDEZ,ROS Date/time of reading: May 08 2008 - 11:41:39 AM Report created at 11:42:32 AM on May 08, 2008 Yakov Pollard MD CARDIAC ECHO ORDERABLES documented in this encounter Visit Diagnoses Not on filedocumented in this encounter
--- OUTSIDE RECORDS SUMMARY | 2022-05-08 00:47 | XMS_ITS | Encounter Summary ---
:1970 Author Organization [facility] Address [address] [place] [address] Care Team Providers Name Role Phone Parviz Baron MD Primary Care Provider Encounter Details Date Type Department Care Team Description 04/05/2005 Hospital Encounter [facility] [address] [place], [place] [phone] Social History Tobacco Use Types Packs/Day Years Used Date Smoking Tobacco: Never Alcohol Use Standard Drinks/Week Comments Yes 2 (1 standard drink = 0.6 oz pure alcoho l) Sex Assigned at Date Recorded Not on file documented as of this encounter Plan of Treatment Not on filedocumented as of this encounter Visit Diagnoses Not on filedocumented in this encounter Care Teams Sandfill Operator Relationship Specialty Start Date End Date Parviz Baron MD PCP - General 10/01/08 [address] [place] [address] documented as of this encounter
--- OUTSIDE RECORDS SUMMARY | 2022-05-08 00:47 | XMS_ITS | Encounter Summary ---
:1970 Author Organization [facility] Address [address] [place] [address] Care Team Providers Name Role Phone Parviz Baron MD Primary Care Provider Encounter Details Date Type Department Care Team Description 08/07/2009 Hospital [facility] [address] [place] [address] [place] [phone] [place] [phone] (Wo rk) Social History Tobacco Use Types Packs/Day Years Used Date Smoking Tobacco: Never Assessed Sex Assigned at Date Recorded Not on file documented as of this encounter Discharge Disposition Disposition Code Departure Means Destination Home or Self Fdc documented in this encounter Plan of Treatment Not on filedocumented as of this encounter Visit Diagnoses Not on filedocumented in this encounter Care Teams English Teacher Relationship Specialty Start Date End Date Parviz Baron MD PCP - General 10/01/[address] [place] [address] documented as of this encounter
--- OUTSIDE RECORDS SUMMARY | 2022-05-08 00:47 | XMS_ITS | Encounter Summary ---
:1970 Author Organization [facility] Address [address] [place] [address] Care Team Providers Name Role Phone Parviz Baron MD Primary Care Provider Encounter Details Date Type Department Care Team Description 01/25/2005 Results Only [facility] Yazan Brooks MD Endocrinology - [facility] PhD [address] [place], [place] [id number] [place] [address] [phone] (Wo rk) Social History Tobacco Use Types Packs/Day Years Used Date Smoking Tobacco: Never Assessed Sex Assigned at Date Recorded Not on file documented as of this encounter Plan of Treatment Not on filedocumented as of this encounter Procedures Procedure Name Priority Date/Time Associated Diagnosis Comme nts CYTOPATHOLOGY Routine 01/25/2005 0:00 EDT Results for this procedure are i n the results section . documented in this encounter Results CYTOPATHOLOGY (01/25/2005 0:00 EDT) Component Value Ref Test Analysis Performed At [facility] Method Time Signature Pathology CYTOPATHOLOGY REPORT DRAKE Report: [facility] Reports generated via electronic interface contain original data; however they are lacking the format of the original report. Caution should be taken when reading/interpreting unformatte d reports. Name: ? BASILIO BOUCHER ? Accession #: ? [id number] : ? 1970 (Age: 34) ??M ?Collect Date: ? 01/25/2005 Location: ? RAD ? Receive Date: ? 01/25/2005 Provider: ? YAZAN BROOKS MD Copy to: ?ASHLIE BARON MD ? CYTOLOGIC DIAGNOSIS: ? Thyroid nodule, right lobe, fine needle aspiration: - Non-diagnostic. ??See comment. ? COMMENT: ? No follicular cells are identified in eight pas ses. ??The specimen is unsuitable for diagnosis. ??(Trevon Castro[facility] Document reviewed and electronically signed by: ? MICHAEL BRIAN MD [facility] Report Date: ??01/25/2005 17:38 By the signature above, the attending physician certifies th at he/she has personally conducted a gross and/or microscopic examin ation of the described specimens and rendered or confirmed the above diagnosis. Specimen Type: ? Thyroid, Fine Needle Aspiration, Right lobe Clinical History: ? H/O Hodgkin' s (remot e), now with multiple thyroid nodules; radiation in 1977; FNA of 14mm nodule right lobe. ??Clinical diagnosis co de: ??241.1 ? Rapid Interpretation: ? Pass 1-4: ??Unsatisfactory, acellular. Pass 5-6: ??Acellular, rare colloid. Pass 7-8: ??Skin fragment, blood. (Michael Brian, [facility]; ) Gross Description: ? 9 fixed prepared slid es, 8 air dried prepared slides, and 1 tube of Cytolyt were received and processed by selective cellular enhancem ent technique. ? End of Report Specimen (Source) Anatomical Collection Method Collection Time Re ceived Time Location / / Volume Laterality 01/25/2005 01/25/2005 10:5 6 EDT Yazan Brooks MD PhD PATHOLOGY ORDERABLES Performing Organization Address City/State/ZIP Code Phon e Number [facility] [address] [place] [address] [facility] [address] [place] [address] documented in this encounter Visit Diagnoses Not on filedocumented in this encounter Care Teams Banquet Chef Relationship Specialty Start Date End Date Parviz Baron MD PCP - General 10/01/08 [address] [place] [address] documented as of this encounter
--- OUTSIDE RECORDS SUMMARY | 2022-05-08 00:47 | XMS_ITS | Encounter Summary ---
:1970 Author Organization [facility] Address [address] [place] [address] Care Team Providers Name Role Phone Parviz Baron MD Primary Care Provider Encounter Details Date Type Department Care Team Description 01/17/2005 Hospital Encounter [facility] - Ai Becerra MD Other [facility] HOUSESTAFF MAIL [address] [facility] [address] [place], [place] [id number] [place] [address] Social History Tobacco Use Types Packs/Day Years Used Date Smoking Tobacco: Never Alcohol Use Standard Drinks/Week Comments Yes 2 (1 standard drink = 0.6 oz pure alcoho l) Sex Assigned at Date Recorded Not on file documented as of this encounter Plan of Treatment Not on filedocumented as of this encounter Procedures Procedure Name Priority Date/Time Associated Diagnosis Comme nts THYROPEROXIDASE AB Routine 01/17/2005 15:33 Resul ts for this EDT procedure are i n the results section. TSH Routine 01/17/2005 15:33 Results for this EDT procedure are i n the results section. T4 FREE Routine 01/17/2005 15:33 Results for this EDT procedure are i n the results section. documented in this encounter Results TSH (01/17/2005 15:33 EDT) P athologist Signature TSH 2.44 0.35 - 5.50 [facility] uIU/ml LAB Specimen Anatomical Collection Method Collection Time Receive d Time (Source) Location / / Volume Laterality 01/17/2005 15:33 01/17/2005 EDT 17:32 EDT Ai Becerra MD CHEMISTRY & BLOOD GAS ORDERA BLES Performing Organization Address City/State/ZIP Code Phon e Number [facility] [address] [place] [address] SERVICES [facility] [address] [place] [address] (ABNORMAL) THYROPEROXIDASE AB (01/17/2005 15:33 EDT) Component Value Ref Test Analysis Performed Pathologis t Range Method Time At Signature Thyroperoxidase 58Unit: IU/mL(Note) DELOREST RAFFI Antibody -- EXPECTED VALUES -- ? [facility] (Ref Range) <=40 ? TEST PERFORMED OR REFERRED [facility] ? [address] ? [place] [address] ? [place] Farmer: ? Michele Clayton M.D. ? (H) Specimen Anatomical Collection Method Collection Time Receive d Time (Source) Location / / Volume Laterality 01/17/2005 15:33 01/17/2005 EDT 17:32 EDT Ai Becerra MD HISTORICAL LAB FOR SQ LOAD Performing Organization Address City/State/[facility] Phon e Number [facility] [address] [place] [address] SERVICES [facility] [address] [place] [address] T4 FREE (01/17/2005 15:33 EDT) P athologist Signature Free T4 1.5 0.8 - 1.8 [facility] ng/dl LAB Specimen Anatomical Collection Method Collection Time Receive d Time (Source) Location / / Volume Laterality 01/17/2005 15:33 01/17/2005 EDT 17:32 EDT Ai Becerra MD CHEMISTRY & BLOOD GAS ORDERA BLES Performing Organization Address City/[facility]/ZIP [facility] Phon e Number [facility] [address] [place] [address] SERVICES [facility] [address] [place] [address] documented in this encounter Visit Diagnoses Not on filedocumented in this encounter Care Teams Dietary Services Manager Relationship Specialty Start Date End Date Parviz Baron MD PCP - General 10/01/08 [address] [place] [address] documented as of this encounter
--- OUTSIDE RECORDS SUMMARY | 2022-05-08 00:47 | XMS_ITS | Encounter Summary ---
:1970 Author Organization [facility] Address [address] [place] [address] Care Team Providers Name Role Phone Parviz Baron MD Primary Care Provider Encounter Details Date Type Department Care Team Description 05/05/2010 Orders Only [facility] Bisi Cueva Hypothyr oidis Endocrinology - [facility] Rm RN (acquired) (Primary Dx) [address] [place], [place] [address] Social History Tobacco Use Types Packs/Day Years Used Date Smoking Tobacco: Never Assessed Sex Assigned at Date Recorded Not on file documented as of this encounter Ordered Prescriptions Prescription Sig Dispensed Refills Start Date End Date levothyroxine (SYNTHROID) Take by mouth daily. Take on e tablet by mouth 6 days a week needs to follow up with primary 30 Tab 1 05/05/2010 200 mcg tablet documented in this encounter Plan of Treatment Not on filedocumented as of this encounter Visit Diagnoses Diagnosis Hypothyroidism (acquired) - Primary Unspecified hypothyroidism documented in this encounter Care Teams Silk Hanger Relationship Specialty Start Date End Date Parviz Baron MD PCP - General 10/01/08 [address] [place] [address] documented as of this encounter
--- OUTSIDE RECORDS SUMMARY | 2022-05-08 00:47 | XMS_ITS | Encounter Summary ---
:1970 Author Organization [facility] Address [address] [place] [address] Care Team Providers Name Role Phone Unavailable Primary Care Provider Unavailable Encounter Details Date Type Department Care Team Description 02/06/2007 Hospital Encounter [facility] [address] [place] [address] Social History Tobacco Use Types Packs/Day Years [...]
--- OUTSIDE RECORDS SUMMARY | 2022-05-08 00:47 | XMS_ITS | Encounter Summary ---
:1970 Author Organization [facility] Address [address] [place] [address] Care Team Providers Name Role Phone Unavailable Primary Care Provider Unavailable Encounter Details Date Type Department Care Team Description 12/13/2005 Hospital Encounter [facility] [address] [place] [address] Social History Tobacco Use Types Packs/Day Years [...]
--- OUTSIDE RECORDS SUMMARY | 2022-05-08 00:47 | XMS_ITS | Encounter Summary ---
:1970 Author Organization [facility] Address [address] [place] [address] Care Team Providers Name Role Phone Parviz Baron MD Primary Care Provider Encounter Details Date Type Department Care Team Description 05/10/2005 Before PRISM Converted [facility], Visit (Maple) Maple conversion MD Adebayo [address] [place] [address] Social History Tobacco Use Types Packs/Day Years Used Date Smoking Tobacco: Never Assessed Sex Assigned at Date Recorded Not on file documented as of this encounter Progress Notes Adebayo Villa MD - 08/06/2009 0319 EST DIVISION OF 1OTOLARYNGOLOGY May 12, 2005 Yolanda Valedz M.D. Ai Becerra M.D. Endocrinology [facility] Dear Lacie: wanted to keep you apprised of our findings on Anibal Wharton. The pathology is benign and inventory representative of a multinodular goiter. He already is on Synthroid medication and will continue with the existing dosage. Thank you so much for involving me in his care. Sincerely, Signed by Adebayo Villa MD 05/18/2005 16:35 Arvin Romero MD Adebayo Villa MD D: - Adebayo Villa MD A - kmb Job ID: tape Document ID: [id number] cc: Yolanda Valdez MD,PhD ALISON Chow Adebayo Villa MD - 08/06/2009318 EST DIVISION OF OTOLARYNGOLOGY May 12, 2005 Parviz Baron MD [facility] [address] [place] [address] DOS: 05/10/[address] Baron: wanted to keep you apprised of our findings and management on Anibal Wharton. He underwent a total thyroidectomy because of a history of a previous mantle irradiation for lymphoma in 1977. Fortunately this proved to be just a multinodular thyroid without evidence of any malignancy. This is all very reassuring and he should continue on his existing dosage of Synthroid. He had no significant hypocalcemic symptoms after surgery and came through things with flying colors. Sincerely, Signed by Adebayo Villa MD 05/18/2005 16:35 Arvin Romero MD Adebayo Villa MD D: - Adebayo Villa MD A - kmb Job ID: tape Document ID: [id number] cc: MD Yolanda Reid MD,PhD Parviz Baron MD Adebayo Villa MD - 08/06/20099 EST DIVISION OF OTOLARYNGOLOGY May 12, 2005 Mr. Anibal Wharton [address] [place] [address] Dear DESEAN: The pathology report is benign and thus you do not have any cancer of the thyroid. You can continue taking your thyroid dosage as before and Iglad that this is all behind you. Thank you for being such a cooperative patient. I will also correspond with your primary care physician, Dr. Baron and Dr. Pollard, so they have all the information. Sincerely, ?? Signed by Adebayo Villa MD 05/18/2005 16:35 Arvin Romero MD Adebayo Villa MD D: - Adebayo Villa MD A - kmb Job ID: TAPE Document ID: [id number] cc: Mr. Anibal Wharton * Adebayo Villa MD - 08/06/2009 0319 EST DIVISION OF OTOLARYNGOLOGY PROGRESS/FOLLOWUP NOTE - 05/10/2005 O: The sutures are removed today. The pathology is benign. P: He is still taking Synthroid 100 micrograms per day and will continue on that. I have contacted the patient by phone and left a message on his answering machine. Signed by Adebayo Villa MD 05/18/2005 16:35 Arvin Romero MD Adebayo Villa MD D: - Adebayo Villa MD A - kmb Job ID: tape Document ID: [id number] cc: Parviz Baron MD documented in this encounter Plan of Treatment Not on filedocumented as of this encounter Visit Diagnoses Not on filedocumented in this encounter Care Teams Windows Migration Technician Relationship Specialty Start Date End Date Parviz Baron MD PCP - General 10/01/08 [address] [place] [address] documented as of this encounter
--- OUTSIDE RECORDS SUMMARY | 2022-05-08 00:47 | XMS_ITS | Encounter Summary ---
:1970 Author Organization [facility] Address [address] [place] [address] Care Team Providers Name Role Phone Unavailable Primary Care Provider Unavailable Encounter Details Date Type Department Care Team Description 12/09/2003 Hospital Encounter [facility] [place] [address] [place] [address] Social History Tobacco Use Types Packs/Day Years Used Date Smoking Tobacco: Never Assessed Sex Assigned at Date Recorded Not on file documented as of this encounter Discharge Disposition Disposition Code Departure Means Destination Auto Discharge documented in this encounter Plan of Treatment Not on filedocumented as of this encounter Procedures Procedure Name Priority Date/Time Associated Diagnosis Comme nts MA MAMMO DIAG BILAT Routine 12/09/2003 9:36 EDT R esults for this DIGITAL procedure are i n the results section. documented in this encounter Results MA MAMMO DIAG BILAT DIGITAL (12/09/2003 9:36 EDT) Anatomical Region Laterality Modality Other Specimen (Source) Anatomical Collection Method Collection Time Re ceived Time Location / / Volume Laterality 12/09/2003 9:36 EDT Impressions 02/12/2009 13:01 EDT IMPRESSION: BILATERAL BREASTS - CATEGORY 1 Negative, no evidence of malignancy. No further breast imaging follow up is recommended at this time. 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 Bilateral Breast Findings (CAD used to i nterpret routine digital projection): The breasts are almost entirely fat. No significant masses, calcifications or other abnormalities ar e seen. Procedure Note Adebayo Gunderson MD - 02/12/2009Fo rmatting of this note might be different from the original. 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 Bilateral Breast Findings (CAD used to i nterpret routine digital projection): The breasts are almost entirely fat. No significant masses, calcifications or other abnormalities ar e seen. IMPRESSION IMPRESSION: BILATERAL BREASTS - CATEGORY 1 Negative, no evidence of malignancy. No further breast imaging follow up is recommended at this time. OVERALL ASSESSMENT - NEGATIVE END OF IMPRESSION Yakov Pollard MD IMG MAMMOGRAPHY ORDERABLES documented in this encounter Visit Diagnoses Not on filedocumented in this encounter
--- OUTSIDE RECORDS SUMMARY | 2022-05-08 00:47 | XMS_ITS | Encounter Summary ---
:1970 Author Organization [facility] Address [address] [place] [address] Care Team Providers Name Role Phone Parviz Baron MD Primary Care Provider Encounter Details Date Type Department Care Team Description 05/06/2008 Hospital Encounter [facility] MD [address] [place], [place] [id number] [phone] Social History Tobacco Use Types Packs/Day Years Used Date Smoking Tobacco: Never Alcohol Use Standard Drinks/Week Comments Yes 2 (1 standard drink = 0.6 oz pure alcoho l) Sex Assigned at Date Recorded Not on file documented as of this encounter Plan of Treatment Not on filedocumented as of this encounter Visit Diagnoses Not on filedocumented in this encounter Care Teams Health Professor Relationship Specialty Start Date End Date Parviz Baron MD PCP - General 10/01/08 [address] [place] [address] documented as of this encounter
--- OUTSIDE RECORDS SUMMARY | 2022-05-08 00:47 | XMS_ITS | Encounter Summary ---
:1970 Author Organization [facility] Address [address] [place] [address] Care Team Providers Name Role Phone Parviz Baron MD Primary Care Provider Encounter Details Date Type Department Care Team Description 08/06/2009 Results Only [facility] Uriarte Mulu, FACILITY MANAGER HISTOLOGY [phone] [address] [place], [place] [address] (Wo rk) Social History Tobacco Use Types Packs/Day Years Used Date Smoking Tobacco: Never Assessed Sex Assigned at Date Recorded Not on file documented as of this encounter Plan of Treatment Not on filedocumented as of this encounter Procedures Procedure Name Priority Date/Time Associated Diagnosis Comme nts RAD US DOPPLER 08/07/2009 10:20 Results f or this CAROTID BILATERAL EST procedure are in the results section. documented in this encounter Results RAD US DOPPLER CAROTID BILATERAL (08/07/2009 10:20 EST) Anatomical Region Laterality Modality Other Specimen Anatomical Collection Method Collection Time Receive d Time (Source) Location / / Volume Laterality 08/07/2009 10:20 08/07/2009 EST 11:49 EST Narrative 08/07/2009 11:49 EST US DOPPLER CAROTID BILAT ??Aug 07, 2009 10:20:00 AM Signs and Symptoms/Comments: ??Bilateral carotid bruit. Evaluate for stenosis Comparison: None available Findings: Galindo scale ultrasound images with Dopple r of the bilateral carotids were obtained. There is mild diffuse ath erosclerotic soft plaque. There is also focal heterogeneous soft p laque within the right mid common carotid artery. Right: CCA Proximal: Systolic velocity 112 cm/s , Diastolic velocity 16 cm/sec CCA Distal: Systolic velocity 337 cm/s, Diastolic velocity 50 cm/sec ICA Proximal: Systolic velocity 352 cm/s , Diastolic velocity 58 cm/sec ICA Mid: Systolic velocity 99 cm/s, Jasmine tolic velocity 23 cm/sec ICA Distal: Systolic velocity 92 cm/s, D iastolic velocity 23 cm/sec Proximal ECA: Systolic velocity 128 cm/s , Diastolic velocity 10 cm/sec Vertebral Artery: Systolic velocity 74 c m/s, Diastolic velocity 10 cm/sec Left: CCA Proximal: Systolic velocity 133 cm/s , Diastolic velocity 27 cm/sec CCA Mid: Systolic velocity 119 cm/s, Janice stolic velocity 24 cm/sec CCA Distal: Systolic velocity 138 cm/s, Diastolic velocity 31 cm/sec ICA Proximal: Systolic velocity 118 cm/s , Diastolic velocity 33 cm/sec ICA Mid: Systolic velocity 146 cm/s, Jaince stolic velocity 28 cm/sec ICA Distal: Systolic velocity 101 cm/s, Diastolic velocity 28 cm/sec Proximal ECA: Systolic velocity 130 cm/s , diastolic velocity 11 cm the Vertebral Artery: Systolic velocity 77 c m/s, Diastolic velocity 10 cm/sec Left systolic ratio: 1.2 Impression: 1. Velocities and the grayscale images i ndicate a stenosis of 70 to 95% in the midportion of the right commo n carotid artery. 2. Velocities and the grayscale images i ndicate a stenosis of approximately 50% in the right external carotid artery. 3. Velocities and the grayscale images i ndicate a stenosis of 50 to 69% in the left internal carotid artery. 4. Velocities and the grayscale images i ndicate a stenosis of 1 to 49% in the left common carotid artery. 5. Velocities and the grayscale images i ndicate a stenosis of approximately 50% in the left external c arotid artery. I have personally reviewed the images an d the above interpretation and agree with the findings. Procedure Note Storm Perry MD / Storm Perry MD / Storm Perry MD - 08/07/2009 US DOPPLER CAROTID BILAT Aug 07, 2009 10 :20:00 AM Signs and Symptoms/Comments: Bilateral c arotid bruit. Evaluate for stenosis Comparison: None available Findings: Galindo scale ultrasound images with Dopple r of the bilateral carotids were obtained. There is mild diffuse ath erosclerotic soft plaque. There is also focal heterogeneous soft p laque within the right mid common carotid artery. Right: CCA Proximal: Systolic velocity 112 cm/s , Diastolic velocity 16 cm/sec CCA Distal: Systolic velocity 337 cm/s, Diastolic velocity 50 cm/sec ICA Proximal: Systolic velocity 352 cm/s , Diastolic velocity 58 cm/sec ICA Mid: Systolic velocity 99 cm/s, Jasmine tolic velocity 23 cm/sec ICA Distal: Systolic velocity 92 cm/s, D iastolic velocity 23 cm/sec Proximal ECA: Systolic velocity 128 cm/s , Diastolic velocity 10 cm/sec Vertebral Artery: Systolic velocity 74 c m/s, Diastolic velocity 10 cm/sec Left: CCA Proximal: Systolic velocity 133 cm/s , Diastolic velocity 27 cm/sec CCA Mid: Systolic velocity 119 cm/s, Janice stolic velocity 24 cm/sec CCA Distal: Systolic velocity 138 cm/s, Diastolic velocity 31 cm/sec ICA Proximal: Systolic velocity 118 cm/s , Diastolic velocity 33 cm/sec ICA Mid: Systolic velocity 146 cm/s, Janice stolic velocity 28 cm/sec ICA Distal: Systolic velocity 101 cm/s, Diastolic velocity 28 cm/sec Proximal ECA: Systolic velocity 130 cm/s , diastolic velocity 11 cm the Vertebral Artery: Systolic velocity 77 c m/s, Diastolic velocity 10 cm/sec Left systolic ratio: 1.2 Impression: 1. Velocities and the grayscale images i ndicate a stenosis of 70 to 95% in the midportion of the right commo n carotid artery. 2. Velocities and the grayscale images i ndicate a stenosis of approximately 50% in the right external carotid artery. 3. Velocities and the grayscale images i ndicate a stenosis of 50 to 69% in the left internal carotid artery. 4. Velocities and the grayscale images i ndicate a stenosis of 1 to 49% in the left common carotid artery. 5. Velocities and the grayscale images i ndicate a stenosis of approximately 50% in the left external c arotid artery. I have personally reviewed the images an d the above interpretation and agree with the findings. Mulu JEAN BAPTISTE IMG US ORDERABLES documented in this encounter Visit Diagnoses Not on filedocumented in this encounter Care Teams Senior Information Security Engineer Relationship Specialty Start Date End Date Parviz Baron MD PCP - General 4/29/09 [address] [place] [address] documented as of this encounter
--- OUTSIDE RECORDS SUMMARY | 2022-05-08 00:47 | XMS_ITS | Encounter Summary ---
:1970 Author Organization [facility] Address [address] [place] [address] Care Team Providers Name Role Phone Unavailable Primary Care Provider Unavailable Encounter Details Date Type Department Care Team Description 02/21/2006 Hospital Encounter [facility] Dejesus i, MD [place] [address], [place] [id number] [place] [phone] (Wo rk) Social History Tobacco Use Types [...]
--- OUTSIDE RECORDS SUMMARY | 2022-05-08 00:47 | XMS_ITS | Encounter Summary ---
:1970 Author Organization [facility] Address [address] [place] [address] Care Team Providers Name Role Phone Parviz Baron MD Primary Care Provider Reason for Visit Reason Comments Follow-up Hodgkins Encounter Details Date Type Department Care Team Description 07/06/2010 Office Visit [facility] Children's Ramon Sweet MD Hodgkin's disease of head, face, and nec k ([facility]); Hospital Pediatric [address] [place] [address] History of splenectomy; Hematology & Avenue Personal history of radiation therapy Oncology - [facility] [phone] [place] [address] [place] [address] [phone] Social History Tobacco Use Types Packs/Day Years Used Date Smoking Tobacco: Never Alcohol Use Standard Drinks/Week Comments Yes 2 (1 standard drink = 0.6 oz pure alcoho l) Sex Assigned at Date Recorded Not on file documented as of this encounter Last Filed Vital Signs Vital Sign Reading Time Taken Comments Blood Pressure 128/57 07/06/2010 1031 EST Pulse 87 07/06/2010 1031 EST Temperature 35.2 ??C (95.4 ??F) 07/06/2010 1031 EST Respiratory Rate - - Oxygen Saturation - - Inhaled Oxygen Concentration - - Weight 78.5 kg (173 lb 1 oz) 07/06/2010 1031 EST Height 167.5 cm (5' 5.95) 07/06/2010 1031 EST Body Mass Index 27.98 07/06/2010 1031 EST documented in this encounter Patient Instructions Patient InstructionsRamon Sweet MD - 07/06/2010 11:10 EST Will send copy of recommendations to Dr Baron followup for thyroid Increased risk of Skin cancer Colonoscopy age 48 documented in this encounter Progress Notes Ramon Sweet MD - 07/06/2010 2106 EST CHIEF COMPLAINT: Hodgkin's disease. HISTORIAN: Patient HISTORY OF PRESENT ILLNESS: DESEAN was diagnosed at age 8 with stage IA Hodgkin's disease involving aright cervical node. Histology was nodular sclerosing and the node was excised. The patient underwent surgical staging including a splenectomy, and then received radiation therapy alone according to a then- active [facility] pediatric protocol 7691. The radiation was to a total dose of 35.5 triana to the upper mantle and cervical region with a second set of sessions to treat the abdomen and para-aortic white. Treatment was successful and he is in his first continuous remission, now roughly 30 years posttreatment. He continues to be employed with the [employer], and is doing well overall. 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 He has had yearly echocardiograms, all of which have been normal, and he continues to pass his periodic [employer] physical fitness exams every 6 months. He reports that he has lipids checked with the [employer] least once a year, although I do not have records of these. He has had no interim surgery, allergies or new problems. Review Of Systems: General: No fever, night sweats, weight loss or malaise. No light-headedness/dizziness. HEENT: No headaches. No vision or hearing complaints, no mouth sores or throat pain. Respiratory: no cough or shortness of breath. Cardiovascular: No palpitations, chest pain, orthopnea. No edema. GI: no nausea, vomiting, constipation, diarrhea. : no dysuria Heme: no bleeding, bruising, petechiae. Lymph: no lymphadenopathy Skin: no rashes, lesions, jaundice. Musculoskeletal: No myalgias, arthralgias. Neuro: No weakness, paresthesias. Endocrine: No polyuria/polydipsia. Medication Sig ??? FLUTICASONE PROPIONATE (FLONASE NASL) by Nasal route as needed. ??? aspirin chewable 81 mg tablet Take 81 mg by mouth daily. ??? penicillin v potassium (VEETID) 250 mg tablet Take 250 mg by mouth 2 times daily. ??? levothyroxine (SYNTHROID) 200 mcg tablet Take by mouth daily. Take one tablet by mouth 6 days a week needs to follow up with primary OBJECTIVE: Physical Exam: Blood pressure 128/57, pulse 87, temperature 35.2 ??C (95.4 ??F), temperature source Tympanic, height 167.5 cm (65.95), weight 78.5 kg (173 lb 1 oz). In general, he is well developed, in no acute distress. HEENT are within normal limits. Examination of the neck shows it to be supple. 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 are normal male Tod V. No adenopathy in the inguinal, supraclavicular, [...] a muscular deformity in the neck secondary to his previous radiation. ASSESSMENT: 1. Ihfmz-qur-gdxq-old man status post treatment for Hodgkin's disease [...] late effects for radiation to the mediastinum. There are reports of accelerated progression of normal cardiovascular disease and potential valve injury from previous radiation and a simple echocardiogram may [...] cardiology than in Pediatric Oncology, and we can transition his care to his hospitality housekeeper with occasional input from cardiology and endocrinology. Pt seen and examined in person. Discussed plan with pt and Pediatric Oncology staff conference. Thanks, Lalo Sweet MD beeper [phone] documented in this encounter Miscellaneous Notes Scanned Note-Null - Inpatient, MD Piero - 08/18/2010 1448 EDT Scanned Note-Null - Inpatient, MD Piero - 08/18/2010 1448 EDT documented in this encounter Plan of Treatment Not on filedocumented as of this encounter Visit Diagnoses Diagnosis Hodgkin's disease of head, face, and nec k ([facility]) (HCC) Hodgkin's disease, unspecified type, of lymph nodes of head, face, and neck History of splenectomy Other acquired absence of organ Personal history of radiation therapy Personal history of irradiation, present ing hazards to health documented in this encounter Care Teams Fnps Relationship Specialty Start Date End Date Parviz Baron MD PCP - General 10/01/08 [address] [place] [address] documented as of this encounter
--- OUTSIDE RECORDS SUMMARY | 2022-05-08 00:47 | XMS_ITS | Encounter Summary ---
:1970 Author Organization [facility] Address [address] [place] [address] Care Team Providers Name Role Phone Parviz Baron MD Primary Care Provider Encounter Details Date Type Department Care Team Description 06/29/2010 Abstract [facility] Vascular Lahi ri, Darlyn Quijano MD Surgery [place] [address] [address] [address], [place] [address] (Wo rk) Social History Tobacco Use Types Packs/Day Years Used Date Smoking Tobacco: Never Assessed Sex Assigned at Date Recorded Not on file documented as of this encounter Plan of Treatment Not on filedocumented as of this encounter Visit Diagnoses Not on filedocumented in this encounter Care Teams Informatics Physician Liaison Relationship Specialty Start Date End Date Parviz Baron MD PCP - General 10/01/[address] [place] [id number] documented as of this encounter
--- OUTSIDE RECORDS SUMMARY | 2022-05-08 00:47 | XMS_ITS | Encounter Summary ---
:1970 Author Organization [facility] Address [address] [place] [address] Care Team Providers Name Role Phone Parviz Baron MD Primary Care Provider Encounter Details Date Type Department Care Team Description 03/03/2008 Hospital [facility] Yolanda Valdez Maple conversion MD PhD [address] [address] [address] [place] [address] (Wo rk) Social History Tobacco Use Types Packs/Day Years Used Date Smoking Tobacco: Never Alcohol Use Standard Drinks/Week Comments Yes 2 (1 standard drink = 0.6 oz pure alcoho l) Sex Assigned at Date Recorded Not on file documented as of this encounter Plan of Treatment Not on filedocumented as of this encounter Procedures Procedure Name Priority Date/Time Associated Diagnosis Comme nts THYROID CASCADE Routine 03/03/2008 9:10 EDT Resul ts for this procedure are i n the results section. T4, FREE REFLEX Routine 03/03/2008 9:10 EDT Resul ts for this procedure are i n the results section. T3, TOTAL Routine 03/03/2008 9:10 EDT Results for this procedure are i n the results section. documented in this encounter Results T3, TOTAL (03/03/2008 9:10 EDT) P athologist Signature T3, Total 137 60 - 181 DRAKE VELAZQUEZ ng/dL LAB Specimen Anatomical Collection Method Collection Time Receive d Time (Source) Location / / Volume Laterality 03/03/2008 9:10 03/03/2008 9 :11 EDT EDT Yolanda Valdez MD PhD CHEMISTRY & BLOOD GAS ORDERA BLES Performing Organization Address City/State/ZIP Code Phon e Number [facility] [address] [place] [address] [facility] [address] [place] [address] (ABNORMAL) FREE T4 (03/03/2008 9:10 EDT) P athologist Signature Free T4 1.9 (H) 0.8 - 1.8 DRAKE VELAZQUEZ ng/dl LAB Specimen Anatomical Collection Method Collection Time Receive d Time (Source) Location / / Volume Laterality 03/03/2008 9:10 03/03/2008 9 :11 EDT EDT Yolanda Valdez MD PhD CHEMISTRY & BLOOD GAS ORDERA BLES Performing Organization Address City/[facility]/ZIP Code Phon e Number [facility] [address] [place] [address] [facility] [address] [place] [address] (ABNORMAL) THYROID CASCADE (03/03/2008 9:10 EDT) P athologist Signature TSH 0.08 (L) 0.35 - 5.00 DRAKE VELAZQUEZ uIU/mL LAB Comment: TSH cascade is not recommended for patie nts in which pituitary or hypothalamic disorders are suspected. Specimen Anatomical Collection Method Collection Time Receive d Time (Source) Location / / Volume Laterality 03/03/2008 9:10 03/03/2008 9 :11 EDT EDT Yolanda Valdez MD PhD CHEMISTRY & BLOOD GAS ORDERA BLES Performing Organization Address City/[facility]/ZIP Code Phon e Number [facility] [address] [place] [address] [facility] [address] [place] [address] documented in this encounter Visit Diagnoses Not on filedocumented in this encounter Care Teams Stereotype Caster Relationship Specialty Start Date End Date Parviz Baron MD PCP - General 10/01/08 [address] [place] [address] documented as of this encounter
--- OUTSIDE RECORDS SUMMARY | 2022-05-08 00:47 | XMS_ITS | Encounter Summary ---
:1970 Author Organization [facility] Address [address] [place] [address] Care Team Providers Name Role Phone Parviz Baron MD Primary Care Provider Encounter Details Date Type Department Care Team Description 04/05/2005 Before PRISM Converted [facility], Visit (Maple) Maple conversion MD Adebayo [address] [place] [address] Social History Tobacco Use Types Packs/Day Years Used Date Smoking Tobacco: Never Assessed Sex Assigned at Date Recorded Not on file documented as of this encounter Progress Notes Adebayo Villa MD - 08/05/2009 0412 EST DIVISION OF OTOLARYNGOLOGY April 07, 2005 Parviz Baron MD [facility] [address] [place] [address] DOS: 04/05/[address] Baron: I wanted to keep you apprised of the findings and issues regarding Anibal Wharton, one of your patients. He has had some slight increase in the nodules in theright lobe of the thyroid and attempts at fine needle aspirate were nondiagnostic with the cytopathologist in attendance. Accordingly, it probably is logical to proceed with a total thyroidectomy which, of course, is the patientpreference aswell just to get this problem over and done with. He already takes a thyroid replacement so this would not be an issue for him. Certainly Ioutlined all of the potential risks of surgery and he is very comfortable and enthusiastic about going in that direction. I will keep you apprised of our findings after they are completed. Sincerely, Signed by Adebayo Villa MD 04/25/2005 07:35 Arvin Romero MD Adebayo Villa MD D: - Adebayo Villa MD P - kmb Job ID: tape Document ID: [id number] cc: MD Yolanda Reid MD,PhD Parviz Baron MD Adebayo Villa MD - 08/05/2009 0412 EST DIVISION OF OTOLARYNGOLOGY April 07, 2005 Yolanda Valdez MD,PhD [facility] [address] [place] [address] DOS: 04/05/05 Dear Yolanda: I saw Jose Juan Wharton in the office today whom you may recall is the [facility] patrol[facility]aina with a previous history of mantle radiation to the neck for Hodgkinlymphoma in 1977. He does have a small atrophicthyroid but the nodules have increased slightly in size. Dr. Benson in Radiology was unable to get a diagnostic biopsy even with Cytopathology in attendance. Accordingly I think the best option for himand certainly his preference would be to proceed with a total thyroidectomy and get this over and done with once and for all. Ikeep you apprised of our findings and certainly do not have a high index of suspicion of malignancy. However we should make arrangements to be as thorough and compliant for his needs and please let me know if you have any other questions. Sincerely, Signed by Adebayo Villa MD 04/25/2005 07:35 Arvin Romero MD Adebayo Villa MD D: - Adebayo Villa MD P - kmb Job ID: tape Document ID: [id number] cc: Yolanda Valdez MD,PhD documented in this encounter Plan of Treatment Not on filedocumented as of this encounter Visit Diagnoses Not on filedocumented in this encounter Care Teams Block Splitter Operator Relationship Specialty Start Date End Date Parviz Baron MD PCP - General 10/01/08 [address] [place] [address] documented as of this encounter
--- OUTSIDE RECORDS SUMMARY | 2022-05-08 00:47 | XMS_ITS | Encounter Summary ---
:1970 Author Organization [facility] Address [address] [place] [address] Care Team Providers Name Role Phone Parviz Baron MD Primary Care Provider Encounter Details Date Type Department Care Team Description 02/21/2006 Before PRISM [facility] - Kristie Becerra MD Converted Visit Maple conversion FA HOUSESTAFF MAIL (Maple) [address] [address] [place] [address] Social History Tobacco Use Types Packs/Day Years Used Date Smoking Tobacco: Never Assessed Sex Assigned at Date Recorded Not on file documented as of this encounter Progress Notes Dain, Conv Sales Architect - 06/11/2009 0848 EST DIVISION OF ENDOCRINOLOGY PROGRESS/FOLLOWUP NOTE - 02/21/2006 SUBJECTIVE: Mr. Wharton is a pleasant 36-year-old male with a history of mantle radiation to his neck for stage 1 Hodgkin's disease in 1977. He was diagnosed with hypothyroidism and was on 150 mcg of Synthroid. A thyroid ultrasound was done every 2 years and showed increasing size of the nodules. We had referred him to Dr. Villa as it was difficult to obtain a fine needle aspiration cytology, and a diagnostic cytology could not be obtained by radiology. Given his risk factors- age , gender and histroy of radiation the decision was to have a total thyroidectomy done. The pathology specimen was benign. He continued to stay on the 150 mcg of Synthroid postoperatively. His free T4 was 1.2 and TSHwas 24 in December 2005. We had called him andincreased the dose of his levothyroxine to 175 mcg based on his weight. He continues to take the increased dose now. He feels fine. His symptoms of fatigability have improved. He takes his medication with his multivitamin and Pencillin in the morning. Medications: 1. multivitamin 2. Penicillin 3. levothyroxine 175 mcg OBJECTIVE: BP 122/68, pulse 84, weight 185.5, height 5 feet 7 inches. In general, he is a pleasant male in no significant distress. HEENT - no lid lag, retraction, or exophthalmos. Surgical scar is well healed without any problems. Heart regular rate and rhythm. Lungs clear to auscultation bilaterally. Lower extremities with no edema. ASSESSMENT / PLAN: Mr. Wharton is a pleasant 36-year-old male with iatrogenic hypothyroidism status post total thyroidectomy for beningn multinodular goitre. - I have recommended he take his levothyroxine at a different time from his multivitamin which contains iron and calciumwhich might interfere with absorption of the levothyroxine. Besides changing his schedule since this dose was changed only 4 weeks back, I would wait another 4 to 6 weeks to get another blood work. I saw and examined the patient with . I agree with the HPI, exam findings and the plan ofcare as outlined above. I have documented any additions/changes in the body of the note. Signed by Tyler Houser MD 03/16/2006 13:21 Reviewed by ALISON Chow 03/07/2006 16:12 Arley Benson MBBSJohn L Leahy [facility] of Endocrine Dictated by: ALISON Chow Tyler Houser MD Chief of Endocrine - ALISON Chow P - DS Job ID: [id number] Document ID: [id number] cc: Yakov Pollard MD Dain, Conv Sales Architect - 05/30/2009 0034 EST DIVISION OF ENDOCRINOLOGY PROGRESS/FOLLOWUP NOTE - 02/21/2006 SUBJECTIVE: Mr. Wharton is a pleasant 36 year old male with a history of stage I Hodgkin's lymphoma, who had mantle radiation to his neck in 1977. He was followed by pediatric oncology. He was diagnosed with hypothyroidism and was started on levothyroxine 150 mcg. He had ultrasound done in 2002 and 2004, and was referred to us with potential increase in size of the nodules. As it was very difficult to obtain a fine needle aspiration cytology, we referred him to radiology and apparently they were not able to obtain a specimen. Given his risk factors- gender, age, and history of radiation, it was decided to do a total thyroidectomy and he had this done by Dr. Villa in May 2005. He continued on the same dose of levothyroxine postoperatively. He had symptoms of fatigue, but was able to function well. He had thyroid function tests done in December 2004, which showed a free T4 of 1.32, TSH 24. I had increased the dose of levothyroxine to 175 mcg and he presents for followup visit today. MEDICATIONS: 1. Multivitamin. 2. Synthroid 150 mcg. 3. Penicillin daily. OBJECTIVE: On physical examination, BP 122/68, pulse 84, weight 185.5, height 5 feet 7 inches. In general, he is a pleasant male who appears his stated age, no significant distress. Neck: No thyromegaly. Heart: Regular rate and rhythm. Surgical scar site. Healthy lower extremities, no edema. ASSESSMENT: Mr. Wharton is a pleasant 36 year old male presenting for followup of iatrogenic hypothyroidism, S/P total thyroidectomy in May 2005-pathology was benign, with no evidence of malignancy. PLAN: 1. Recommended that he take the thyroid at nighttime to avoid interference of calcium, iron, and multivitamin with its absorption. I will continue the current dose at 175 mcg. 2. I gave him a lab slip to check blood work in two months and he will call us two days after he gets the blood work to discuss the blood test results. 3. I plan to see him back in a year in followup. I saw and examined the patient with . I agree with the HPI, exam findings and the plan ofcare as outlined above. I have documented any additions/changes in the body of the note. Signed by Tyler Houser MD 03/06/2006 09:49 Reviewed by ALISON Chow 02/28/2006 09:59 Arley Benson MBBSJohn L Leahy [facility] of Endocrine Dictated by: ALISON Chow Tyler Houser MD Chief of Endocrine - ALISON Chow P - MR Job ID: [id number] Document ID: [id number] cc: Parviz Baron MD documented in this encounter Plan of Treatment Not on filedocumented as of this encounter Visit Diagnoses Not on filedocumented in this encounter Care Teams Buggyman Relationship Specialty Start Date End Date Parviz Baron MD PCP - General 10/01/08 [address] [place] [address] documented as of this encounter
--- OUTSIDE RECORDS SUMMARY | 2022-05-08 00:47 | XMS_ITS | Encounter Summary ---
:1970 Author Organization [facility] Address [address] [place] [address] Care Team Providers Name Role Phone Parviz Baron MD Primary Care Provider Encounter Details Date Type Department Care Team Description 05/10/2005 Hospital Encounter [facility] [address] [place], [place] [phone] Social History Tobacco Use Types Packs/Day Years Used Date Smoking Tobacco: Never Alcohol Use Standard Drinks/Week Comments Yes 2 (1 standard drink = 0.6 oz pure alcoho l) Sex Assigned at Date Recorded Not on file documented as of this encounter Plan of Treatment Not on filedocumented as of this encounter Visit Diagnoses Not on filedocumented in this encounter Care Teams Hand Slitter Relationship Specialty Start Date End Date Parviz Baron MD PCP - General 10/01/08 [address] [place] [address] documented as of this encounter
--- OUTSIDE RECORDS SUMMARY | 2022-05-08 00:47 | XMS_ITS | Encounter Summary ---
:1970 Author Organization [facility] Address [address] [place] [address] Care Team Providers Name Role Phone Parviz Baron MD Primary Care Provider Encounter Details Date Type Department Care Team Description 06/09/2009 Hospital [facility] [place] [facility] [address] [place] [address] Social History Tobacco Use Types Packs/Day Years Used Date Smoking Tobacco: Never Assessed Sex Assigned at Date Recorded Not on file documented as of this encounter Discharge Disposition Disposition Code Departure Means Destination Home or Self Skilled Nursing documented in this encounter Plan of Treatment Not on filedocumented as of this encounter Visit Diagnoses Not on filedocumented in this encounter Care Teams Hand Cloth Examiner Relationship Specialty Start Date End Date Parviz Baron MD PCP - General 10/01/08 [address] [place] [address] documented as of this encounter
--- OUTSIDE RECORDS SUMMARY | 2022-05-08 00:47 | XMS_ITS | Encounter Summary ---
:1970 Author Organization [facility] Address [address] [place] [address] Care Team Providers Name Role Phone Unavailable Primary Care Provider Unavailable Encounter Details Date Type Department Care Team Description 12/07/2004 Hospital Encounter [facility] - Pedro Pollard, Other MD [address] [place] [address] Social History Tobacco Use Types Packs/Day Years Used Date Smoking Tobacco: Never Assessed Sex Assigned at Date Recorded Not on file documented as of this encounter Discharge Disposition Disposition Code Departure Means Destination Auto Discharge documented in this encounter Plan of Treatment Not on filedocumented as of this encounter Procedures Procedure Name Priority Date/Time Associated Diagnosis Comme nts MA MAMMO DIAG BILAT 12/07/2004 13:05 Resu lts for this DIGITAL EDT procedure are i n the results section. RAD US NECK/THYROID 12/07/2004 11:16 Resu lts for this EDT procedure are i n the results section. documented in this encounter Results MA MAMMO DIAG BILAT DIGITAL (12/07/2004 13:05 EDT) Anatomical Region Laterality Modality Other Specimen (Source) Anatomical Collection Method Collection Time Re ceived Time Location / / Volume Laterality 12/07/2004 13:05 EDT Narrative 01/08/2009 3:30 EDT DX JON MAMMO H/O HODGKINS DISEASE 3554 RADIATION, MANTLE MALE PATIENT DATE PER DR'S OFFICE Comparison is made to films from 004. Bilateral Breast Findings: (cad used to interpret routine digital): The breasts are almost entirely fat. No significant masses, calcifications or other abnormalities ar e seen. IMPRESSION: BILATERAL BREAST - CATEGORY 1 Negative, no evidence of malignancy. No further breast imaging follow up is recommended at this time. However, given the patient's medical history, this will be left to the judgem ent of the referring provider. OVERALL ASSESSMENT - NEGATIVE END OF IMPRESSION Procedure Note Santa De La Rosa MD - 01/08/2009 DX JON MAMMO H/O HODGKINS DISEASE 3554 RADIATION, MANTLE MALE PATIENT DATE PER DR'S OFFICE Comparison is made to films from 004. Bilateral Breast Findings: (cad used to interpret routine digital): The breasts are almost entirely fat. No significant masses, calcifications or other abnormalities ar e seen. IMPRESSION: BILATERAL BREAST - CATEGORY 1 Negative, no evidence of malignancy. No further breast imaging follow up is recommended at this time. However, given the patient's medical history, this will be left to the judgem ent of the referring provider. OVERALL ASSESSMENT - NEGATIVE END OF IMPRESSION Yakov Pollard MD IMG MAMMOGRAPHY ORDERABLES RAD US NECK/THYROID (12/07/2004 11:16 EDT) Anatomical Region Laterality Modality Other Specimen (Source) Anatomical Collection Method Collection Time Re ceived Time Location / / Volume Laterality 12/07/2004 11:16 EDT Narrative 01/08/2009 4:24 EDT THRYOID US H/O HODGKINS DISEASE TREATED W/ 3354 MANTLE RADIATION R/O THYROID CA NECK ULTRASOUND, 12/07/04 Scans of the neck are compared with the prior examination of 12/13/02. ??The thyroid gland is similar in size to the previous study with the right lobe now measuring 38 mm in length, 8 mm in thickness, and 12 mm in width, and the left lobe me asuring 33 mm in length, 6 mm in thickness, and 9 mm in width. ??Thyro id isthmus is 3 mm in thickness. ??Five nodules are currently identified in the thyroid gland. ??Three of these were identified previously. ??These include a nodule in the lateral right midthyroid g land measuring 9 x 8.5 mm, previously measured 7 x 6 x 3 mm. ??A no dule in the medial right midthyroid gland measuring 14 x 16 x 6 m m compared to the previous measurement of 13 x 13 x 6 mm. ?? A thir d tiny nodule in the lower left thyroid lobe posteriorly measuring 3 x 3 x 2 mm versus the previous measurement of 3 x 2 x 1 mm. ?? A bilobed or paired set of nodules in the lower right thyroid lobe is also noted. ??These have a maximum diameter of 5 mm and are probabl y present in retrospect on the previous study and appear essentiall y unchanged. ??No extrathyroidal masses. IMPRESSION: Slight minimal increase in size of two o f the right-sided thyroid nodules. ??Two small nodules in the lowe r right thyroid lobe now seen are seen only in retrospect on the previ ous study and are probably unchanged. ??The left thyroid nodule is unchanged. D: ??12/07/04 T: ??12/10/04 /[facility] Procedure Note Geovani Barron, DO - 01/08/2009Formattin g of this note might be different from the original. THRYOID US H/O HODGKINS DISEASE TREATED 3353 MANTLE RADIATION R/O THYROID CA NECK ULTRASOUND, 12/07/04 Scans of the neck are compared with the prior examination of 12/13/02. The thyroid gland is similar i n size to the previous study with the right lobe now measuring 38 mm in length, 8 mm in thickness, and 12 mm in width, and the left lobe me asuring 33 mm in length, 6 mm in thickness, and 9 mm in width. Thyroid isthmus is 3 mm in thickness. Five nodules are currently id entified in the thyroid gland. Three of these were identified pr eviously. These include a nodule in the lateral right midthyroid g land measuring 9 x 8.5 mm, previously measured 7 x 6 x 3 mm. A nodu le in the medial right midthyroid gland measuring 14 x 16 x 6 m m compared to the previous measurement of 13 x 13 x 6 mm. A third t iny nodule in the lower left thyroid lobe posteriorly measuring 3 x 3 x 2 mm versus the previous measurement of 3 x 2 x 1 mm. A bilobed or paired set of nodules in the lower right thyroid lobe is also noted. These have a maximum diameter of 5 mm and are probabl y present in retrospect on the previous study and appear essentiall y unchanged. No extrathyroidal masses. IMPRESSION: Slight minimal increase in size of two o f the right-sided thyroid nodules. Two small nodules in the lower right thyroid lobe now seen are seen only in retrospect on the previ ous study and are probably unchanged. The left thyroid nodule is un changed. /[facility] Yakov Pollard MD IMG US ORDERABLES documented in this encounter Visit Diagnoses Not on filedocumented in this encounter
--- OUTSIDE RECORDS SUMMARY | 2022-05-08 00:47 | XMS_ITS | Encounter Summary ---
:1970 Author Organization [facility] Address [address] [place] [address] Care Team Providers Name Role Phone Parviz Baron MD Primary Care Provider Encounter Details Date Type Department Care Team Description 07/06/2010 Orders Only [facility] Ramon Sweet MD Pediatric Hematology & [address] [place] [phone] [place] [address] [place], [place] [id number] [phone] Social History Tobacco Use Types Packs/Day Years [...] Diagnosis Comme nts MA MAMMO DIAG BILAT 07/06/2010 13:13 Resu lts for this DIGITAL EST procedure are i n the results section. documented in this encounter Results MA MAMMO DIAG BILAT DIGITAL (07/06/2010 13:13 EST) Anatomical Region Laterality Modality Other Specimen Anatomical Collection Method Collection Time Receive d Time (Source) Location / / Volume Laterality 07/06/2010 13:13 07/06/2010 EST 14:19 EST Narrative 07/06/2010 14:19 EST Comparison is made to films from 010 (bilateral) and films from 05/06/2008 (bilateral) and films fr om 12/13/2005 (bilateral) and films from 12/07/2004 (bilateral) and fi lms from 12/09/2003. Right Breast Findings: (CAD used to inte rpret diagnostic digital): The breast is almost entirely fat. A sta ble subareolar focal asymmetry is again identified, consisten t with gynecomastia. There are no new suspicious findings. Left Breast Findings: (CAD used to inter pret diagnostic digital): The breast is almost entirely fat. No si gnificant masses, calcifications or other abnormalities ar e seen. IMPRESSION: RIGHT BREAST - CATEGORY 2, BENIGN Benign, no evidence of malignancy. No fu rther breast imaging follow up is recommended at this time. LEFT BREAST - CATEGORY 1, NEGATIVE Negative, no evidence of malignancy. No further breast imaging follow up is recommended at this time. OVERALL ASSESSMENT - BENIGN END OF IMPRESSION The patient will be notified of her/his breast imaging results via a lay letter from Radiology. ??Radiology w ill contact the patient directly regarding any findings which re quire additional imaging (Category 0) at this time. Procedure Note 07/06/2010 Comparison is made to films from 010 (bilateral) and films from 05/06/2008 (bilateral) and films fr om 12/13/2005 (bilateral) and films from 12/07/2004 (bilateral) and fi lms from 12/09/2003. Right Breast Findings: (CAD used to inte rpret diagnostic digital): The breast is almost entirely fat. A sta ble subareolar focal asymmetry is again identified, consisten t with gynecomastia. There are no new suspicious findings. Left Breast Findings: (CAD used to inter pret diagnostic digital): The breast is almost entirely fat. No si gnificant masses, calcifications or other abnormalities ar e seen. IMPRESSION: RIGHT BREAST - CATEGORY 2, BENIGN Benign, no evidence of malignancy. No fu rther breast imaging follow up is recommended at this time. LEFT BREAST - CATEGORY 1, NEGATIVE Negative, no evidence of malignancy. No further breast imaging follow up is recommended at this time. OVERALL ASSESSMENT - BENIGN END OF IMPRESSION The patient will be notified of her/his breast imaging results via a lay letter from Radiology. Radiology satya l contact the patient directly regarding any findings which re quire additional imaging (Category 0) at this time. Ramon Sweet MD IMG MAMMOGRAPHY ORDERABLES documented in this encounter Visit Diagnoses Not on filedocumented in this encounter Care Teams Assayer Helper Relationship Specialty Start Date End Date Parviz Baron MD PCP - General 10/01/08 [place] [address] documented as of this encounter
--- OUTSIDE RECORDS SUMMARY | 2022-05-08 00:47 | XMS_ITS | Encounter Summary ---
:1970 Author Organization [facility] Address [address] [place] [address] Care Team Providers Name Role Phone Parivz Baron MD Primary Care Provider Encounter Details Date Type Department Care Team Description 11/26/2018 Hospital Encounter [facility]- Mindy Unknown, Provider, [facility] [address] [facility] [phone] [place] [address] (Work) [phone] Social History Tobacco Use Types Packs/Day Years [...] Code Departure Means Destination Home or Self Snf documented in this encounter Plan of Treatment Not on filedocumented as of this encounter Visit Diagnoses Not on filedocumented in this encounter Care Teams Ground Nuclear Weapons Assembly Officer Relationship Specialty Start Date End Date Parviz Baron MD PCP - General 10/01/08 [address] [place] [address] documented as of this encounter
--- OUTSIDE RECORDS SUMMARY | 2022-05-08 00:47 | XMS_ITS | Encounter Summary ---
:1970 Author Organization [facility] Address [address] [place] [address] Care Team Providers Name Role Phone Parviz Baron MD Primary Care Provider Encounter Details Date Type Department Care Team Description 06/08/2010 Orders Only [facility] Jennyfer De La Torre trae lymphoid Pediatric Hematology & K, RN isiah pedro, without Oncology - Main [facility] mention of having [address] [place] [address] (Primary Dx) [phone] Social History Tobacco Use Types Packs/Day Years Used Date Smoking Tobacco: Never Assessed Sex Assigned at Date Recorded Not on file documented as of this encounter Plan of Treatment Not on filedocumented as of this encounter Visit Diagnoses Diagnosis Acute lymphoid leukemia, 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
--- OUTSIDE RECORDS SUMMARY | 2022-05-08 00:47 | XMS_ITS | Encounter Summary ---
:1970 Author Organization [facility] Address [address] [place] [address] Care Team Providers Name Role Phone Parviz Baron MD Primary Care Provider Encounter Details Date Type Department Care Team Description 11/21/2008 Hospital Encounter [facility] Room 2, [facility] - [address] [address] Social History Tobacco Use Types Packs/Day Years Used Date Smoking Tobacco: Never Assessed Sex Assigned at Date Recorded Not on file documented as of this encounter Discharge Disposition Disposition Code Departure Means Destination Home or Self Skilled Nursing documented in this encounter Progress Notes Brittany Blue MD - 12/01/2008 0804 EDT DIVISION OF GASTROENTEROLOGY November 27, 2008 MR KORINA BOUCHER [address] [place] [id number] Dear Mr Boucher: I have received the results of your colonoscopy that was done on November 21, 2008. The polyp removed from the cecum was a benign lymphoid aggregate that has no malignant potential. I would suggest you have a followup colonoscopy in ten years. Sincerely, Electronically Signed by Brittany Blue MD, FACP 12/01/2008 08:04 Betsy Blue MD, [id number] A Vecchio, MD, FACP - Brittany Blue MD, FACP - Job ID: [id number] Doc ID: [id number] cc: Sujey Nelson MD *MR KORINA BOUCHER, [address] [place] [address] documented in this encounter Procedure Notes Brittany Blue MD - 11/24/2008 0657 EDT [facility] Colonoscopy Procedure Report Attending Physician: BRITTANY BLUE MD Referring Physician: MUNIR NELSON MD Exam Date:11/21/2008 Introduction: A 38 year old male patient presents for an outpatient Colonoscopy Indications: ?? Screening. Consent: The benefits, risks, and alternatives to the procedure were discussed and informed consent was obtained from the patient. Preparation: Pulse, pulse oximetry and blood pressure were monitored throughout the procedure. ASA Classification: Class 1 - Patient has no organic, physiologic, biochemical, or psychiatric disturbance. Medications: ?? Versed 3 mg IV throughout the procedure ?? Demerol 75 mg IV throughout the procedure Rectal Exam: Normal rectal exam. Procedure: The endoscope was passed through the anus under direct visualization and advanced with ease to the cecum. Ileum entered and was normal. The scope was withdrawn and the mucosa was carefully examined. The quality of the preparation was good. The views were good. The patient's toleration of the procedure was good. Retroflexion was performed in the rectum. Findings: A single small polyp, measuring less than 5 mm in size, was found in the cecum. The polyp was removed by cold biopsy polypectomy. ? Tiny poly[poid tissue. NBI. Estimated Blood Loss: there was NO BLOOD LOSS during the procedure. Unplanned Events: there were no unplanned events. Summary: ?? a single small polyp found in the cecum (211.3); removed by cold biopsy polypectomy. ?? [poid tissue. ?? NBI. Recommendations: ?? start high fiber diet. ?? follow-up appointment with referring physician. ?? follow-up on the results of the biopsy specimens. ?? colonoscopy recommended in 5 or 10 years depending on polyp histology. Performed By: The procedure was performed by and Dr. Brittany Blue. Report electronically signed by Dr. BRITTANY BLUE MD on 11/21/2008 at 14:00 [employer] Document ID: [id number] documented in this encounter Plan of Treatment Not on filedocumented as of this encounter Procedures Procedure Name Priority Date/Time Associated Diagnosis Comme nts THYROID CASCADE Routine 03/02/2009 9:52 EDT Resul ts for this procedure are i n the results section. T4, FREE REFLEX Routine 03/02/2009 9:52 EDT Resul ts for this procedure are i n the results section. T3, TOTAL Routine 03/02/2009 9:52 EDT Results for this procedure are i n the results section. documented in this encounter Results T3, TOTAL (03/02/2009 9:52 EDT) athologist Signature T3, Total 114 60 - 181 [facility] ng/dL LAB Specimen Anatomical Collection Method Collection Time Receive d Time (Source) Location / / Volume Laterality 03/02/2009 9:52 03/02/2009 9 :53 EDT EDT Yolanda Valdez MD PhD CHEMISTRY & BLOOD GAS ORDERA BLES Performing Organization Address City/State/ZIP Code Phon e Number [facility] [address] [place] [address] SERVICES [facility] [address] [place] [address] FREE T4 (03/02/2009 9:52 EDT) athologist Signature Free T4 1.4 0.8 - 1.8 [facility] ng/dl LAB Specimen Anatomical Collection Method Collection Time Receive d Time (Source) Location / / Volume Laterality 03/02/2009 9:52 03/02/2009 9 :53 EDT EDT Yolanda Valdez MD PhD CHEMISTRY & BLOOD GAS ORDERA BLES Performing Organization Address City/State/ZIP Code Phon e Number [facility] [address] [place] [address] SERVICES [facility] [address] [place] [address] (ABNORMAL) THYROID CASCADE (03/02/2009 9:52 EDT) athologist Signature TSH 0.07 (L) 0.35 - 5.00 [facility] uIU/ml LAB Comment: TSH cascade is not recommended for patie nts in which pituitary or hypothalamic disorders are suspected. Specimen Anatomical Collection Method Collection Time Receive d Time (Source) Location / / Volume Laterality 03/02/2009 9:52 03/02/2009 9 :53 EDT EDT Yolanda Valdez MD PhD CHEMISTRY & BLOOD GAS ORDERA BLES Performing Organization Address City/State/ZIP Code Phon e Number [facility] [address] [place] [address] SERVICES [facility] [address] [place] [address] documented in this encounter Visit Diagnoses Not on filedocumented in this encounter Care Teams Poly Operator Relationship Specialty Start Date End Date Parviz Baron MD PCP - General 10/01/08 [address] [place] [address] documented as of this encounter
--- OUTSIDE RECORDS SUMMARY | 2022-05-08 00:48 | XMS_ITS | Encounter Summary ---
:1970 Author Organization [facility] [address] Care Team Providers Name Role Phone Parviz Baron MD Primary Care Provider Encounter Details Date Type Department Care Team Description 04/27/2018 [facility] [place] [facility] [place] [phone] Social History Tobacco Use Types Packs/Day Years Used Date Smoking Tobacco: Former Smokeless Tobacco: Never Sex Assigned at Date Recorded Not on file documented as of this encounter Medications at Time of Discharge Medication Sig Dispensed Refills Start Date End Date fluticasone propionate by Nasal route. 0 06/30/19 11 (FLONASE) 50 mcg/actuation [place], Suspension MULTI-VITAMIN ORAL Take by mouth 0 06/30/2010 Daily. atorvastatin (LIPITOR) 20 Take 20 mg by 0 mg Tablet mouth daily. aspirin 81 mg Tablet, Take 81 mg by 0 Chewable mouth daily. levothyroxine (SYNTHROID) Take 100 mcg by 0 05/07/2019 100 mcg Tablet mouth daily. documented as of this encounter Plan of Treatment Not on filedocumented as of this encounter Procedures Procedure Name Priority Date/Time Associated Diagnosis Comme nts CAROTID DUPLEX, Routine 04/27/2018 7:59 AM Stenosis of carotid Results for this BILATERAL EST artery, unspecified procedur e are in laterality the results section. documented in this encounter Results Carotid Duplex, Bilateral (04/27/2018 7:59 AM EST) Component Value Ref Test Analysis Performed At [facility] Range Method Time Signature VB Text Department: Vascular Surgery Lab [facility] Report Patient: [id number] (ADAM WHARTON) CPT: 04822 ICD10: I65.29 Referring Physician: SHI TREJO ?? Indications: ?? History neck radiation with left carotid bru it, follow-up ICD10 Diagnosis Code: I65.29 Findings: ICA Proximal, Right ? PSV (cm/s): 112 ? EDV (cm/s): 15 ? ICA/CCA: 0.5 ? Plaque Structure: Echogenic ? Plaque Surface: Irregular ? %Stenosis: <15% ICA Distal, Right ? PSV (cm/s): 77 ? EDV (cm/s): 17 ? ICA/CCA: 0.3 CCA Distal, Right ? PSV (cm/s): 231 ? EDV (cm/s): 25 ? %Stenosis: >50% CCA Proximal, Right ? PSV (cm/s): 114 ? EDV (cm/s): 16 External Carotid Artery, Right ? PSV (cm/s): 155 ? EDV (cm/s): 10 ? %Stenosis: <50% Vertebral, Right ? PSV (cm/s): 77 ? EDV (cm/s): 11 ? Direction of Flow: Antegrade ICA Proximal, Left ? PSV (cm/s): 121 ? EDV (cm/s): 19 ? ICA/CCA: 1.0 ? Plaque Structure: Echogenic ? Plaque Surface: Irregular ? %Stenosis: <15% ICA Distal, Left ? PSV (cm/s): 64 ? EDV (cm/s): 16 ? ICA/CCA: 0.5 CCA Distal, Left ? PSV (cm/s): 126 ? EDV (cm/s): 21 ? %Stenosis: <50% CCA Proximal, Left ? PSV (cm/s): 104 ? EDV (cm/s): 17 Subclavian, Artery Proximal, Left ? PSV (cm/s): 354 ? EDV (cm/s): 15 ? %Stenosis: >50% External Carotid Artery, Left ? PSV (cm/s): 145 ? EDV (cm/s): 0 Vertebral, Left ? PSV (cm/s): 42 ? EDV (cm/s): 12 ? Direction of Flow: Notched Interpretation: RIGHT: Irregular plaque is present in th e distal common carotid artery causing >50% stenosis by velocity criteria with PSV incr ease from 96 cm/s to 231 cm/s (2.4x step-up); unchanged from previous exam 11/14/17 (PSV increase 115 cm/s to 240 cm/s). The more severe s tenosis is in the common carotid, not the internal. There is a small, focal irregular plaque in the proximal int ernal carotid artery causing <15% stenosis when compar ed to the more distal internal carotid artery. The bifurcation level is in the mid neck. LEFT: Irregular plaque is present in the distal common carotid artery causing <50% stenosis. There is minimal irregular plaque in the prox imal internal carotid artery causing <15% stenosis whe n compared to the more distal internal carotid artery. No significa nt change from previous exam. The bifurcation level is in the mid neck. There are significantly elevated velocit ies consistent with a >50% stenosis in the proximal LEFT subclavian artery with PSV 354 cm/s on today's exam compared to 304 cm/s on previous exam 11/14/17; slight increase in tara ocities from previous exam. Vertebral Artery Data: Patent vertebral arteries bilaterally with normal antegrade Doppler waveform on the RIGHT, but the LEFT vertebral artery has a notched Doppler waveform consistent with early subclavian st eal. Bilateral Doppler derived brachial arter y systolic pressures: (R) 154 mmHg and (L) 130 mmHg (previously R 140 mmHg and L 125 mmHg). Previous Carotid Studies: Date ?RIGHT ICA St enosis ??PSV ?? Ratio ?? LEFT ICA Stenosis ?? PSV ?? Ratio ? <15% ? 87 ?0.40 ? <15% ? 112 ?? 0.80 Current Exam ? <15% ? 112 ?? 0.50 ? <15% ? 121 ?? 1.00 Electronically Signed by: SHANIQUA SAMANO on 2018-04-29 12:14: 56 PM VB Text End of Report [facility] Report Specimen (Source) Anatomical Collection Method Collection Time Re ceived Time Location / / Volume Laterality 04/27/2018 7:59 AM EST Shi Trejo MD VASCULAR ORDERABLES Performing Organization Address City/State/ZIP Code Phon e Number [facility] documented in this encounter Visit Diagnoses Diagnosis Stenosis of carotid artery, unspecified laterality documented in this encounter Care Teams Investment Representative Relationship Specialty Start Date End Date Parviz Baron MD PCP - General 01/08/15 [address] [place] [address] documented as of this encounter
--- OUTSIDE RECORDS SUMMARY | 2022-05-08 00:48 | XMS_ITS | Encounter Summary ---
:1970 Author Organization [facility] Address [address] [place] [address] Care Team Providers Name Role Phone Unavailable Primary Care Provider Unavailable Encounter Details Date Type Department Care Team Description 11/15/2000 - Hospital Encounter [facility] - [facility] [address] [place] [address] [address], [place] [id number] Social History Tobacco Use Types Packs/Day Years Used Date Smoking Tobacco: Never Assessed Sex Assigned at Date Recorded Not on file documented as of this encounter Discharge Disposition Disposition Code Departure Means Destination Auto Discharge documented in this encounter Plan of Treatment Not on filedocumented as of this encounter Procedures Procedure Name Priority Date/Time Associated Diagnosis Comme nts HEMAGRAM & DIFF Routine 11/16/2000 13:36 EDT Resu lts for this procedure are i n the results section. TSH Routine 11/16/2000 13:36 EDT Results for this procedure are i n the results section. T4 Routine 11/16/2000 13:36 EDT Results for this procedure are i n the results section. documented in this encounter Results TSH (11/16/2000 13:36 EDT) P athologist Signature TSH 1.94 0.35 - 5.50 [facility] uIU/ml LAB Specimen Anatomical Collection Method Collection Time Receive d Time (Source) Location / / Volume Laterality 11/16/2000 13:36 11/16/2000 EDT 13:41 EDT Yakov Pollard MD CHEMISTRY & BLOOD GAS ORDERA BLES Performing Organization Address City/State/ZIP Code Phon e Number [facility] [address] [place] [address] SERVICES [facility] [address] [place] [address] T4 (11/16/2000 13:36 EDT) P athologist Signature T4, Total 7.5 4.5 - 10.9 [facility] ug/dl LAB Specimen Anatomical Collection Method Collection Time Receive d Time (Source) Location / / Volume Laterality 11/16/2000 13:36 11/16/2000 EDT 13:41 EDT Yakov Pollard MD CHEMISTRY & BLOOD GAS ORDERA BLES Performing Organization Address City/[facility]/ZIP Code Phon e Number [facility] [address] [place] [address] SERVICES [facility] [address] [place] [address] (ABNORMAL) HEMAGRAM & DIFF (11/16/2000 13:36 EDT) Patholo gist Method Time Signature WBC 9.82 4.0 - JUAN 10.4 [facility] K/cmm RBC 5.10 4.36 - JUAN 5.78 [facility] M/cmm Hemoglobin 15.4 13.8 - JUAN 17.3 [facility] gm/dl HCT 45.2 39.5 - JUAN 50.2 % [facility] MCV 89 81 - 95 [facility] fl [facility] MCH 30.2 27.6 - JUAN 33.0 pg [facility] MCHC 34.0 32.8 - JUAN 36.4 [facility] gm/dl PLT 401 (H) 141 - 320 JUAN K/cmm [facility] RDW-CV 12.7 11.8 - JUAN 14.1 % [facility] Neutrophils 52.8 45.5 - JUAN 79.7 % [facility] Lymphocytes 28.4 15.0 - JUAN 46.8 % [facility] Monocytes 14.2 (H) 1.8 - JUAN 12.0 % [facility] Eosinophils 4.0 0.6 - 6.9 JUAN % [facility] Basophils 0.6 0.2 - 1.4 JUAN % [facility] ABS Neutrophils 5.19 2.20 - JUAN 8.85 [facility] K/cmm ABS Lymphs 2.79 1.09 - JUAN 3.30 [facility] K/cmm ABS Monocytes 1.40 (H) 0.1 - 0.8 JUAN K/cmm [facility] ABS Eosinophils 0.39 0.03 - JUAN 0.61 [facility] K/cmm ABS Basophils 0.05 0.01 - JUAN 0.11 [facility] K/cmm Type of Diff: Automated [facility] Specimen Anatomical Collection Method Collection Time Receive d Time (Source) Location / / Volume Laterality 11/16/2000 13:36 11/16/2000 EDT 13:41 EDT Yakov Pollard MD HISTORICAL LAB FOR SQ LOAD Performing Organization Address City/State/ZIP Code Phon e Number [facility] [address] [place] [address] SERVICES [facility] [address] [place] [address] documented in this encounter Visit Diagnoses Not on filedocumented in this encounter
--- OUTSIDE RECORDS SUMMARY | 2022-05-08 00:48 | XMS_ITS | Encounter Summary ---
:1970 Author Organization [facility] [place] [address] Care Team Providers Name Role Phone Parviz Baron MD Primary Care Provider Encounter Details Date Type Department Care Team Description 05/07/2019 [facility], left; [facility]] [place] [address] Social History Tobacco Use Types Packs/Day Years Used Date Smoking Tobacco: Former Smokeless Tobacco: Never Sex Assigned at Date Recorded Not on file documented as of this encounter Plan of Treatment Not on filedocumented as of this encounter Procedures Procedure Name Priority Date/Time Associated Diagnosis Comme nts CAROTID DUPLEX, Routine 05/07/2019 1:02 PM Subclavian artery R esults for this BILATERAL EST stenosis, left procedure are in Subclavian steal the results syndrome section. documented in this encounter Results Carotid Duplex, Bilateral (05/07/2019 1:02 PM EST) Component Value Ref Test Analysis Performed At [facility] Range Method Time Signature VB Text Department: Vascular Surgery Lab VASCUBASE Report Patient: [id number] (ADAM BOUCHER) CPT: 40476 ICD10: I77.1;G45.8 Referring Physician: JOSEPH SILVER APRN ?? Phone: Indications: ??History neck radiation with left caroti d bruit and subclavian stenosis. R distal CCA stenosis. ICD10 Diagnosis Code: I77.1, G45.8 Findings: ICA Proximal, Right ? PSV (cm/s): 92 ? EDV (cm/s): 18 ? ICA/CCA: 0.3 ? Plaque Structure: Echogenic ? Plaque Surface: Irregular ? %Stenosis: <15% ICA Distal, Right ? PSV (cm/s): 92 ? EDV (cm/s): 21 ? ICA/CCA: 0.3 CCA Distal, Right ? PSV (cm/s): 280 ? EDV (cm/s): 31 ? %Stenosis: >50% CCA Proximal, Right ? PSV (cm/s): 97 ? EDV (cm/s): 9 External Carotid Artery, Right ? PSV (cm/s): 127 ? EDV (cm/s): 13 ? %Stenosis: <50% Vertebral, Right ? PSV (cm/s): 92 ? EDV (cm/s): 18 ? Direction of Flow: Antegrade ICA Proximal, Left ? PSV (cm/s): 147 ? EDV (cm/s): 22 ? ICA/CCA: 0.9 ? Plaque Structure: Echogenic ? Plaque Surface: Irregular ? %Stenosis: <15% ICA Distal, Left ? PSV (cm/s): 101 ? EDV (cm/s): 29 ? ICA/CCA: 0.6 CCA Distal, Left ? PSV (cm/s): 156 ? EDV (cm/s): 24 CCA Middle, Left ? %Stenosis: Minimal CCA Proximal, Left ? PSV (cm/s): 122 ? EDV (cm/s): 24 Subclavian, Artery Proximal, Left ? PSV (cm/s): 598 ? EDV (cm/s): 0 ? %Stenosis: >50% External Carotid Artery, Left ? PSV (cm/s): 149 ? EDV (cm/s): 0 ? %Stenosis: <50% Vertebral, Left ? PSV (cm/s): 65 ? EDV (cm/s): 20 ? Direction of Flow: To-Fro Interpretation: RIGHT: Irregular plaque is present in th e distal common carotid artery causing >50% stenosis by velocity cr iteria with PSV of 280 cm/s, previous exam 04/27/18 PSV was 231 cm/s. There is a small, focal irregular plaque in the proximal int ernal carotid artery causing <15% stenosis when compar ed to the more distal internal carotid artery. The bifurcation leve l is in the mid neck. No significant change compared to previous exam. LEFT: Irregular plaque is present in the distal common carotid artery causing <50% stenosis. There is minimal irregular plaque in the prox imal internal carotid artery causing <15% stenosis whe n compared to the more distal internal carotid artery. No significa nt change from previous exam. The bifurcation level is in the mid neck. No significant change compared to previo us exam. There are significantly elevated velocit ies consistent with a >50% stenosis in the proximal LEFT subclavian artery with PSV of 598 cm/s on today's exam compared to 354 cm/s on previous exam 04/27/18; Significant increase in velocities from previous exam. Vertebral Artery Data: Patent vertebral arteries bilaterally with normal antegrade Doppler waveform on the RIGHT, but the LEFT vertebral artery has a to-fro Doppler waveform consistent with early subclavian foster al. Bilateral Doppler derived brachial arter y systolic pressures: (R) 140 mmHg and (L) 125 mmHg (previously R 154 mmHg and L 130 mmHg). Previous Carotid Studies: Date ?RIGHT ICA St enosis ??PSV ?? Ratio ?? LEFT ICA Stenosis ?? PSV ?? Ratio ? <15% ? 87 ?0.40 ? <15% ? 112 ?? 0.80 ? <15% ? 112 ?? 0.50 ? <15% ? 121 ?? 1.00 Current Exam ? <15% ? 92 ?0.30 ? <15% ? 147 ?? 0.90 Electronically Signed by: IMLY ANGELA on 2019-05-08 03: 32:03 PM VB Text End of Report [facility] Report Specimen (Source) Anatomical Collection Method Collection Time Re ceived Time Location / / Volume Laterality 05/07/2019 1:02 PM EST Joseph Silver PHYSICAL DAMAGE APPRAISER VASCULAR ORDERABLES Performing Organization Address City/State/ZIP Code Phon e Number [facility] documented in this encounter Visit Diagnoses Diagnosis Subclavian artery stenosis, left Atherosclerosis of other specified arter ies Subclavian steal syndrome documented in this encounter Care Teams Pipe Stress Engineer Relationship Specialty Start Date End Date Parviz Baron MD PCP - General 01/08/15 [address] [place] [address] documented as of this encounter
--- OUTSIDE RECORDS SUMMARY | 2022-05-08 00:48 | XMS_ITS | Encounter Summary ---
:1970 Author Organization [facility] [place] [address] Care Team Providers Name Role Phone Parviz Baron MD Primary Care Provider Reason for Visit Diagnostic Test (Routine) - Closed Specialty Diagnoses / Procedures Referred By Contact Refer red To Contact Vascular Surgery Diagnoses Carotid stenosis, right Parviz Baron MD [facility] [address] [place] [address] [place] [address] Phone: Referral ID Status Reason Start Date Expiration Date Visits Requ ested Visits Authorized [id number] Closed 10/06/2017 10/06/2018 2 2 Encounter Details Date Type Department Care Team Description 04/27/2018 Office Visit Vascular Surgery at Mell [facility], Post bclavian artery stenosis, left; [facility] [employer] Subclavian steal syndrome [facility] [address] [place] [facility] [address] [place] [address] [phone] Social History Tobacco Use Types Packs/Day Years Used Date Smoking Tobacco: Former Smokeless Tobacco: Never Sex Assigned at Date Recorded Not on file documented as of this encounter Last Filed Vital Signs Vital Sign Reading Time Taken Comments Blood Pressure 145/68 04/27/2018 9:21 AM EST Pulse 78 04/27/2018 9:20 AM EST Temperature - - Respiratory Rate 16 04/27/2018 9:20 AM EST Oxygen Saturation - - Inhaled Oxygen Concentration - - Weight 78.9 kg (174 lb) 04/27/2018 9:20 AM EST Height 167.6 cm (5' 6) 04/27/2018 9:20 AM EST Body Mass Index 28.08 04/27/2018 9:20 AM EST documented in this encounter Progress Notes Mell Silver, [employer] - 04/27/2018 9:30 AM EST This is a new patient to the practice who is being evaluated for subclavian stenosis and was referred by Parviz Baron MD. 48 yo male s/p Age 8 dx with non Hodgkin lymphoma, treated with radiation, lymph node dissection, splenectomy, hypothyroidism. About 6 months ago c/o hearing heart beat in left ear. Went to see PCP, bruit with heard and carotid duplex showed left subclavian stenosis. Denies TIA's,CVA, chest pain, SOB, DVT, MD, claudication, UE pain or fatigue with use. Karthikeyan family y hx AAA. He does take ASA and stain daily. Social Hx: Social History Tobacco Use ??? Smoking status: Former Smoker ??? Smokeless tobacco: Never Used Substance Use Topics ??? Alcohol use: Not on file Medications: Medications 04/27/18923 Medication Sig Taking? atorvastatin (LIPITOR) 20 mg Tablet Take 20 mg by mouth daily. Yes aspirin 81 mg Tablet, Chewable Take 81 mg by mouth daily. Yes levothyroxine (SYNTHROID) 100 mcg Tablet Take 100 mcg by mouth daily. Yes Allergies: Allergies Allergen Reactions ??? Benadryl [Diphenhydramine-Zinc Acetate] Review of Systems: Constitutional (weight change, fever) - Denies Neuro (dizziness, seizures, numbness, tingling) - Denies Eyes (vision) - Denies Ears, nose, throat (hearing) - Denies Cardiovascular (CP) - Denies Respiratory (SOB) - Denies GI (abd pain, nausea, emesis, blood in stool) - Denies (hematuria, dysuria, frequency) - Denies Muscoloskeletal (extremity pain, weakness) -denies Skin (ulcers, rashes) - denies All other ROS negative Physical Exam: Vitals: Most Recent Vitals: 04/27/18920 BP: 145/68 Pulse: Resp: PainSc: General: NAD, appears well Neuro: Alert and oriented, motor sensory grossly intact Lungs: CTA Heart: RRR Abd: Soft, NT, ND, no palpable pulsatile masses Extremity - [place], warm, no ulceration, brisk capillary refill, no edema Vascular: R L Carotid 2/2 bruit (y) 2/2 bruit (y) Radial 2/2 2/2 Femoral 2/2 2/2 Popliteal 2/2 2/2 DP 2/2 2/2 PT 2/2 2/2 Carotid duplex ICA Proximal, Right ?PSV (cm/s): 112 ?EDV (cm/s): 15 ?ICA/CCA: 0.5 ?Plaque Structure: Echogenic ?Plaque Surface: Irregular ?%Stenosis: <15% ICA Distal, Right ?PSV (cm/s): 77 ?EDV (cm/s): 17 ?ICA/CCA: 0.3 CCA Distal, Right ?PSV (cm/s): 231 ?EDV (cm/s): 25 ?%Stenosis: >50% CCA Proximal, Right ?PSV (cm/s): 114 ?EDV (cm/s): 16 External Carotid Artery, Right ?PSV (cm/s): 155 ?EDV (cm/s): 10 ?%Stenosis: <50% Vertebral, Right ?PSV (cm/s): 77 ?EDV (cm/s): 11 ?Direction of Flow: Antegrade ICA Proximal, Left ?PSV (cm/s): 121 ?EDV (cm/s): 19 ?ICA/CCA: 1.0 ?Plaque Structure: Echogenic ?Plaque Surface: Irregular ?%Stenosis: <15% ICA Distal, Left ?PSV (cm/s): 64 ?EDV (cm/s): 16 ?ICA/CCA: 0.5 CCA Distal, Left ?PSV (cm/s): 126 ?EDV (cm/s): 21 ?%Stenosis: <50% CCA Proximal, Left ?PSV (cm/s): 104 ?EDV (cm/s): 17 Subclavian, Artery Proximal, Left ?PSV (cm/s): 354 ?EDV (cm/s): 15 ?%Stenosis: >50% External Carotid Artery, Left ?PSV (cm/s): 145 ?EDV (cm/s): 0 Vertebral, Left ?PSV (cm/s): 42 ?EDV (cm/s): 12 ?Direction of Flow: Notched Interpretation: RIGHT: Irregular plaque is present in the distal common carotid artery causing >50% stenosis by velocity criteria with PSV increase from 96 cm/s to 231 cm/s (2.4x step-up); unchanged from previous exam 11/14/17 (PSV increase 115 cm/s to 240 cm/s). There is a small, focal irregular plaque in the proximal internal carotid artery causing <15% stenosis when compared to the more distal internal carotid artery. The bifurcation level is in the mid neck. LEFT: Irregular plaque is present in the distal common carotid artery causing <50% stenosis. There is minimal irregular plaque in the proximal internal carotid artery causing <15% stenosis when compared to the more distal internal carotid artery. No significant change from previous exam. The bifurcation level is in the mid neck. There are significantly elevated velocities consistent with a >50% stenosis in the proximal subclavian artery with PSV 354 cm/s on today's exam compared to 304 cm/s on previous exam 11/14/17; slight increase in velocities from previous exam. Vertebral Artery Data: Patent vertebral arteries bilaterally with normal antegrade Doppler waveform on the RIGHT, but the LEFT vertebral artery has a notched Doppler waveform consistent with early subclavian steal. Bilateral Doppler derived brachial artery systolic pressures: (R) 154 mmHg and (L) 130 mmHg (previously R 140 mmHg and L 125 mmHg). Assessment/Plan: 48 yo male s/p Age 8 dx with non Hodgkin lymphoma, treated with radiation, lymph node dissection, splenectomy, hypothyroidism. About 6 months ago c/o hearing heart beat in left ear. Went to see PCP, bruit with heard and carotid duplex showed left subclavian stenosis. Asymptomatic. B ICA with <15% stenosis, R CCA with >50% stenosis. >50% stenosis in the proximal subclavian artery. Left subclavian stenosis with unequal BP. Asymptomatic subclavian steal. Stenosis likely from to pass radiation. He is asymptomatic. Discussed natural history of carotid and subclavian stenosis in relation to radiation. Discussed symptoms. Instructed to use R UE for BP. RTC one year with carotidand subclavian duplex or before if symptoms. documented in this encounter Plan of Treatment Not on filedocumented as of this encounter Results Carotid Duplex, Bilateral (05/07/2019 1:02 PM EST) Component Value Ref Test Analysis Performed At [facility] Range Method Time Signature VB Text Department: Vascular Surgery Lab [facility]ASCU[facility] Report Patient: [id number] (BOUCHERADAM WAN) CPT: 34945 ICD10: I77.1;G45.8 Referring Physician: MELL SILVER APRN ?? Phone: Indications: ??History neck [...] ? 147 ?? 0.90 Electronically Signed by: MILY ANGELA on 2019-05-08 03: 32:03 PM VB Text End of Report [facility] Report Specimen (Source) Anatomical Collection Method Collection Time Re ceived Time Location / / Volume Laterality 05/07/2019 1:02 PM EST Mell Silver APRN VASCULAR ORDERABLES Performing Organization Address City/State/ZIP Code Phon e Number [facility] documented in this encounter Visit Diagnoses Diagnosis Subclavian artery stenosis, left Atherosclerosis of other specified arter ies Subclavian steal syndrome documented in this encounter Care Teams Medical Videographer Relationship Specialty Start Date End Date Parviz Baron MD PCP - General 01/08/15 [address] [place] [address] documented as of this encounter
--- OUTSIDE RECORDS SUMMARY | 2022-05-08 00:48 | XMS_ITS | Encounter Summary ---
:1970 Author Organization [facility] [place] [address] Care Team Providers Name Role Phone Parviz Baron MD Primary Care Provider Reason for Visit Reason Comments Carotid Stenosis Followup Encounter Details Date Type Department Care Team Description 05/07/2019 Office Visit Vascular Surgery at Mell Silver Su bclglenis arterial [facility] BREAKFAST INNKEEPER stenosis [facility] [address] Ott DE [facility] [id number] [place] [address] [phone] Social History Tobacco Use Types Packs/Day Years Used Date Smoking Tobacco: Former Smokeless Tobacco: Never Sex Assigned at Date Recorded Not on file documented as of this encounter Last Filed Vital Signs Vital Sign Reading Time Taken Comments Blood Pressure 134/74 05/07/2019 2:05 PM EST Pulse - - Temperature - - Respiratory Rate - - Oxygen Saturation - - Inhaled Oxygen Concentration - - Weight - - Height - - Body Mass Index - - documented in this encounter Progress Notes Mell Silver, BED AND BREAKFAST INNKEEPER - 05/07/2019 2:00 PM EST F/u subclavian stenosis 49 yo male s/p Age 8 dx with non Hodgkin lymphoma, treated with radiation, lymph node dissection, splenectomy, hypothyroidism. Past h/o c/o hearing heart beat in left ear. Went to see PCP, bruit withheard and carotid duplex showed left subclavian stenosis. Denies TIA's,CVA, chest pain, SOB, DVT, MD, dizziness, lightheadedness, claudication, UE pain or fatigue with use. Karthikeyan family y hx AAA. He does take ASA and stain daily. Social Hx: Social History Tobacco Use ??? Smoking status: Former Smoker ??? Smokeless tobacco: Never Used Substance Use Topics ??? Alcohol use: Not on file Medications: Medications 04/27/18 1056 Medication Sig Taking? atorvastatin (LIPITOR) 20 mg Tablet Take 20 mg by mouth daily. aspirin 81 mg Tablet, Chewable Take 81 mg by mouth daily. levothyroxine (SYNTHROID) 100 mcg Tablet Take 100 mcg by mouth daily. Allergies: Allergies Allergen Reactions ??? Benadryl [Diphenhydramine-Zinc [...] All other ROS negative Physical Exam: Vitals: General: NAD, appears well Neuro: Alert and oriented, motor sensory grossly intact Lungs: CTA Heart: RRR Abd: Soft, NT, ND, no palpable pulsatile masses Extremity - [place], warm, no ulceration, brisk capillary refill, no edema Vascular: R L Carotid 2/2 bruit (y) 2/2 bruit (y) Radial 2/2 2/2 Femoral 2/2 2/2 Popliteal 2/2 2/2 DP 2/2 2/2 PT 2/2 2/2 Carotid duplex ICA Proximal, Right ?PSV (cm/s): 92 ?EDV (cm/s): 18 ?ICA/CCA: 0.3 ?Plaque Structure: Echogenic ?Plaque Surface: Irregular ?%Stenosis: <15% ICA Distal, Right ?PSV (cm/s): 92 ?EDV (cm/s): 21 ?ICA/CCA: 0.3 CCA Distal, Right ?PSV (cm/s): 280 ?EDV (cm/s): 31 ?%Stenosis: >50% CCA Proximal, Right ?PSV (cm/s): 97 ?EDV (cm/s): 9 External Carotid Artery, Right ?PSV (cm/s): 127 ?EDV (cm/s): 13 ?%Stenosis: <50% Vertebral, Right ?PSV (cm/s): 92 ?EDV (cm/s): 18 ?Direction of Flow: Antegrade ICA Proximal, Left ?PSV (cm/s): 147 ? EDV (cm/s): 22 ?ICA/CCA: 0.9 ?Plaque Structure: Echogenic ?Plaque Surface: Irregular ?%Stenosis: <15% ICA Distal, Left ?PSV (cm/s): 101 ?EDV (cm/s): 29 ?ICA/CCA: 0.6 CCA Distal, Left ?PSV (cm/s): 156 ?EDV (cm/s): 24 CCA Middle, Left ?%Stenosis: Minimal CCA Proximal, Left ?PSV (cm/s): 122 ?EDV (cm/s): 24 Subclavian, Artery Proximal, Left ?PSV (cm/s): 598 ?EDV (cm/s): 0 ?%Stenosis: >50% External Carotid Artery, Left ?PSV (cm/s): 149 ?EDV (cm/s): 0 ?%Stenosis: <50% Vertebral, Left ?PSV (cm/s): 65 ?EDV (cm/s): 20 ?Direction of Flow: To-Fro ? Interpretation: ??RIGHT: Irregular plaque is present in the distal common carotid artery causing >50% stenosis by velocity criteria with PSV of 280 cm/s, previous exam 04/27/18 PSV was 231 cm/s. ?? There is a small, focal irregular plaque in the proximal internal carotid artery causing <15% stenosis when compared to the more distal internal carotid artery. The bifurcation level is in the mid neck. No significant change compared to previous exam. ? LEFT: Irregular plaque is present in the distal common carotid artery causing <50% stenosis. There is minimal irregular plaque in the proximal internal carotid artery causing <15% stenosis when compared to the more distal internal carotid artery. No significant change from previous exam. The bifurcation level is in the mid neck. No significant change compared to previous exam. ?? There are significantly elevated velocities consistent with a >50% stenosis in the proximal LEFT subclavian artery with PSV of 598 cm/s on today's exam compared to 354 cm/s on previous exam 04/27/18; Significant increase in velocities from previous exam. ? Vertebral Artery Data: Patent vertebral arteries bilaterally with normal antegrade Doppler waveform on the RIGHT, but the LEFT vertebral artery has a to-fro Doppler waveform consistent with early subclavian steal. ?? Bilateral Doppler derived brachial artery systolic pressures: (R) 140 mmHg and (L) 125 mmHg (previously R 154 mmHg and L 130 mmHg). Assessment/Plan: 49 yo male s/p Age 8 dx with non Hodgkin lymphoma, treated with radiation, lymph node dissection, splenectomy, hypothyroidism. Carotid duplex showed left subclavian stenosis. Asymptomatic. B ICA with <15% stenosis, R CCA with >50% stenosis. Left proximal subclavian artery with increase velocity 598 cm/s. Patent vertebral arteries bilaterally with normal antegrade Doppler waveform on the RIGHT, but the LEFT vertebral artery has a to-fro Doppler waveform consistent with early subclavian steal. Left subclavian stenosis with unequal BP. Asymptomatic subclavian steal. Discussed with Dr Alegria. Stenosis likely from to pass radiation. He is asymptomatic. He should always be taken on right arm. Discussed natural history of carotid and subclavian stenosis in relation to radiation. Discussed symptoms. Instructed to use R UE for BP. Continue ASA and statin. RTC one year with carotid and subclavian duplex or before if symptoms. documented in this encounter Plan of Treatment Not on filedocumented as of this encounter Results Carotid Duplex, Bilateral (05/05/2020 1:05 PM EST) Component Value Ref Test Analysis Performed At [facility] Range Method Time Signature VB Text Department: Vascular Surgery Lab [facility] Report Patient: [id number] (ADAM BOUCHER) CPT: 17985 ICD10: I77.1 Referring Physician: MELL SILVER APRN ?? Phone: Indications: carotid and subclavian artery disease, ? change ICD10 Diagnosis Code: I77.1 Findings: ICA Proximal, Right ? PSV (cm/s): 131 ? EDV (cm/s): 21 ? ICA/CCA: 0.6 ? Plaque Structure: Echogenic ? Plaque Surface: Irregular ? %Stenosis: <15% ICA Distal, Right ? PSV (cm/s): 82 ? EDV (cm/s): 18 ? ICA/CCA: 0.3 CCA Distal, Right ? PSV (cm/s): 238 ? EDV (cm/s): 21 ? %Stenosis: >50% CCA Proximal, Right ? PSV (cm/s): 127 ? EDV (cm/s): 11 External Carotid Artery, Right ? PSV (cm/s): 212 ? EDV (cm/s): 0 ? %Stenosis: >50% Vertebral, Right ? PSV (cm/s): 111 ? EDV (cm/s): 20 ? Direction of Flow: Antegrade ICA Proximal, Left ? PSV (cm/s): 158 ? EDV (cm/s): 24 ? ICA/CCA: 0.8 ? Plaque Structure: Echogenic ? Plaque Surface: Irregular ? %Stenosis: <15% ICA Distal, Left ? PSV (cm/s): 97 ? EDV (cm/s): 22 ? ICA/CCA: 0.5 CCA Distal, Left ? PSV (cm/s): 200 ? EDV (cm/s): 25 ? %Stenosis: <50% CCA Proximal, Left ? PSV (cm/s): 138 ? EDV (cm/s): 20 Subclavian, Artery Proximal, Left ? PSV (cm/s): 532 ? EDV (cm/s): 19 ? %Stenosis: >50% External Carotid Artery, Left ? PSV (cm/s): 174 ? EDV (cm/s): 0 ? %Stenosis: <50% Vertebral, Left ? PSV (cm/s): 69 ? EDV (cm/s): 15 ? Direction of Flow: Notched Interpretation: RIGHT: There is irregular plaque in the common carotid arter y causing >50% stenosis by electronic calipers along with eleva delmy velocities (PSV 238 cm/s; previously 280 cm/s). There is irregular plaque in the proximal internal carotid artery causing <15% stenosis when compar ed to the more distal internal carotid artery. The bifurcation leve l is in the mid neck. No significant change compared to previous exam. LEFT: There is irregular plaque in the common carotid artery causing <50% stenosis by electronic calip ers. There is bulky irregular plaque in the proximal internal carotid artery caus ing 16-49% stenosis when compared to the more distal internal carotid artery. The re are elevated velocities in the subclavian artery (PSV 532 cm/s; previously 598 cm/s). The bifurcation level is in the mid neck. No significant change compared to previous exam. Vertebral Artery Data: RIGHT: Patent vertebral artery with normal antegrade Doppler waveforms and velocities. LEFT: Patent vertebral artery with notched Doppler waveforms . Previous Carotid Studies: Date ?RIGHT ICA St enosis ??PSV ?? Ratio ?? LEFT ICA Stenosis ?? PSV ?? Ratio ? <15% ? 87 ?0.40 ? <15% ? 112 ?? 0.80 ? <15% ? 112 ?? 0.50 ? <15% ? 121 ?? 1.00 ? <15% ? 92 ?0.30 ? <15% ? 147 ?? 0.90 Current Exam ? <15% ? 131 ?? 0.60 ? <15% ? 158 ?? 0.80 Electronically Signed by: MILY ANGELA on 2020-05-06 09: 14:39 AM VB Text End of Report V[facility] Report Specimen (Source) Anatomical Collection Method Collection Time Re ceived Time Location / / Volume Laterality 05/05/2020 1:05 PM EST Mell Silver BED AND BREAKFAST IN[facility]EEPER VASCULAR ORDERABLES Performing Organization Address City/State/ZIP Code Phon e Number V[facility] documented in this encounter Visit Diagnoses Diagnosis Subclavian arterial stenosis Stricture of artery documented in this encounter Care Teams Railway Switchman Relationship Specialty Start Date End Date Parviz Baron MD PCP - General 01/08/15 [address] [place] [address] documented as of this encounter
--- OUTSIDE RECORDS SUMMARY | 2022-05-08 00:48 | XMS_ITS | Encounter Summary ---
:1970 Author Organization [facility] [place] [address] Care Team Providers Name Role Phone Parviz Baron MD Primary Care Provider Encounter Details Date Type Department Care Team Description 04/13/2018 Orders Only Vascular Surgery at Rosa Elena Goldman tenosis of carotid [facility] A, [place] artery, [place] [id number] Social History Tobacco Use Types Packs/Day Years Used Date Smoking Tobacco: Unknown Sex Assigned at Date Recorded Not on file documented as of this encounter Plan of Treatment Not on filedocumented as of this encounter Results Carotid Duplex, Bilateral (04/27/2018 7:59 AM EST) Component Value Ref Test Analysis Performed At [facility] Range Method Time Signature VB Text Department: Vascular Surgery Lab VASCUBASE Report Patient: [id number] (ADAM BOUCHER) CPT: 27748 ICD10: I65.29 Referring Physician: SHI TOSCANO ?? Indications: ?? History neck radiation with [...] Volume Laterality 04/27/2018 7:59 AM EST Shi Toscano MD VASCULAR ORDERABLES Performing Organization Address City/State/ZIP Code Phon e Number [facility] documented in this encounter Visit Diagnoses Diagnosis Stenosis of carotid artery, unspecified laterality documented in this encounter Care Teams Cook Seafood Relationship Specialty Start Date End Date Parviz Baron MD PCP - General 01/08/15 [address] [place] [address] documented as of this encounter
--- OUTSIDE RECORDS SUMMARY | 2022-05-08 00:48 | XMS_ITS | Encounter Summary ---
:1970 Author Organization [facility] Address [address] [place] [address] Care Team Providers Name Role Phone Unavailable Primary Care Provider Unavailable Encounter Details Date Type Department Care Team Description 12/13/2002 Hospital Encounter [facility] [address] [place] [address] Social History Tobacco Use Types Packs/Day Years Used Date Smoking Tobacco: Never Assessed Sex Assigned at Date Recorded Not on file documented as of this encounter Discharge Disposition Disposition Code Departure Means Destination Auto Discharge documented in this encounter Plan of Treatment Not on filedocumented as of this encounter Procedures Procedure Name Priority Date/Time Associated Diagnosis Comme nts RAD US NECK/THYROID Routine 12/13/2002 13:29 Resu lts for this EDT procedure are i n the results section. documented in this encounter Results RAD US NECK/THYROID (12/13/2002 13:29 EDT) Anatomical Region Laterality Modality Other Specimen (Source) Anatomical Collection Method Collection Time Re ceived Time Location / / Volume Laterality 12/13/2002 13:29 EDT Narrative 02/17/2009 3:21 EDT CHEMO THERAPY 600 RADS TO CHEST, ROUTINE SCREEN FOR LATE AFFECTS R/O THYROID CANCER ?* IS[place]EL [id number] * ULTRASOUND OF THE THYROID: 12/13/02 FINDINGS: The thyroid is normal in overall size an d echogenicity. The right lobe measures 3.1 x 0.9 x 1.4 cm. The le ft lobe measures 3.3 x 0.8 x 1.0 cm. There are three small measurable nodules. The first of these is in the upper pole of the right lobe a nd measures 7 mm x 6 mm x 3 mm. The second is in the lower pole of t he right lobe and measures 1.3 cm x 1.3 cm x 0.6 cm. The third is i n the lower pole of the left lobe and measures approximately 2 mm in diameter. Given the multiplicity of these findings, this mos t likely represents benign multinodular goiter. Nonetheless, with t he patient's radiation history, followup would be appropriate. /love Procedure Note Bob Ledbetter MD - 02/17/2009For matting of this note might be different from the original. CHEMO THERAPY 600 RADS TO CHEST, ROUTINE SCREEN FOR LATE AFFECTS R/O THYROID CANCER * ISABEL [id number]* ULTRASOUND OF THE THYROID: 12/13/02 FINDINGS: The thyroid is normal in overall size an d echogenicity. The right lobe measures 3.1 x 0.9 x 1.4 cm. The le ft lobe measures 3.3 x 0.8 x 1.0 cm. There are three small measurable nodules. The first of these is in the upper pole of the right lobe a nd measures 7 mm x 6 mm x 3 mm. The second is in the lower pole of t he right lobe and measures 1.3 cm x 1.3 cm x 0.6 cm. The third is i n the lower pole of the left lobe and measures approximately 2 mm in diameter. Given the multiplicity of these findings, this mos t likely represents benign multinodular goiter. Nonetheless, with t he patient's radiation history, followup would be appropriate. /love Yakov Pollard MD [facility] [place] ORDERABLES documented in this encounter Visit Diagnoses Not on filedocumented in this encounter
--- OUTSIDE RECORDS SUMMARY | 2022-05-08 00:48 | XMS_ITS | Encounter Summary ---
:1970 Author Organization [facility] Address [address] [place] [address] Care Team Providers Name Role Phone Parviz Baron MD Primary Care Provider Encounter Details Date Type Department Care Team Description 11/04/1999 Hospital Encounter [facility] [address] [place] [address] [address] [place] [address] Social History Tobacco Use Types Packs/Day Years Used Date Smoking Tobacco: Never Alcohol Use Standard Drinks/Week Comments Yes 2 (1 standard drink = 0.6 oz pure alcoho l) Sex Assigned at Date Recorded Not on file documented as of this encounter Plan of Treatment Not on filedocumented as of this encounter Procedures Procedure Name Priority Date/Time Associated Diagnosis Comme nts TSH Routine 11/11/1999 15:37 EDT Results for this procedure are i n the results section . T4 Routine 11/11/1999 15:37 EDT Results for this procedure are i n the results section . documented in this encounter Results TSH (11/11/1999 15:37 EDT) P athologist Signature TSH 1.96 0.35 - 5.50 DRAKE VELAZQUEZ uIU/ml LAB Specimen Anatomical Collection Method Collection Time Receive d Time (Source) Location / / Volume Laterality 11/11/1999 15:37 11/11/1999 EDT 15:42 EDT Provider Unknown CHEMISTRY & BLOOD GAS ORDERA BLES Performing Organization Address City/State/ZIP Code Phon e Number [facility] [address] [place] [address] [facility] [address] [place] [address] T4 (11/11/1999 15:37 EDT) P athologist Signature T4, Total 9.9 4.5 - 10.9 DRAKE VELAZQUEZ ug/dl LAB Specimen Anatomical Collection Method Collection Time Receive d Time (Source) Location / / Volume Laterality 11/11/1999 15:37 11/11/1999 EDT 15:42 EDT Provider Unknown CHEMISTRY & BLOOD GAS ORDERA BLES Performing Organization Address City/[facility] Code Phon e Number [facility] [address] [place] [address] [facility] [address] [place] [address] documented in this encounter Visit Diagnoses Not on filedocumented in this encounter Care Teams Smoking Pipe Driller And Threader Relationship Specialty Start Date End Date Parviz Baron MD PCP - General 10/01/08 [address] [place] [address] documented as of this encounter
--- OUTSIDE RECORDS SUMMARY | 2022-05-08 00:48 | XMS_ITS | Encounter Summary ---
:1970 Author Organization [facility] [place] [address] Care Team Providers Name Role Phone Parviz Baron MD Primary Care Provider Reason for Visit Reason Onset Date Comments Appointment 04/23/2018 Encounter Details Date Type Department Care Team Description 04/23/2018 Telephone Vascular Surgery at [facility] Michaelle [place] [address] [place] [address] Social History Tobacco Use Types Packs/Day Years Used Date Smoking Tobacco: Unknown Sex Assigned at Date Recorded Not on file documented as of this encounter Miscellaneous Notes Telephone Encounter - Michaelle Azar - 04/23/2018 3:48 PM EST Called [facility] office again to request referral. We still have not received this. documented in this encounter Plan of Treatment Not on filedocumented as of this encounter Visit Diagnoses Not on filedocumented in this encounter Care Teams Project Superintendent Relationship Specialty Start Date End Date Parviz Baron MD PCP - General 01/08/15 [address] [place], [place] [address] documented as of this encounter
--- OUTSIDE RECORDS SUMMARY | 2022-05-08 00:48 | XMS_ITS | Encounter Summary ---
:1970 [place] [address] Care Team Providers Name Role Phone Parviz Baron MD Primary Care Provider Encounter Details Date Type Department Care Team Description 09/17/2021 Tech Visit Vascular Lab at Angela Canchola ubclavian artery [facility] stenosis, [place] [address] Social History Tobacco Use Types Packs/Day Years Used Date Smoking Tobacco: Former Smokeless Tobacco: Never Sex Assigned at Date Recorded Not on file documented as of this encounter Plan of Treatment Not on filedocumented as of this encounter Procedures Procedure Name Priority Date/Time Associated Diagnosis Comme nts CAROTID DUPLEX, Routine 09/17/2021 1:19 PM Subclavian artery R esults for this BILATERAL EDT stenosis, left procedure are in the results section. documented in this encounter Results Carotid Duplex, Bilateral (09/17/2021 1:19 PM EDT) Component Value Ref Test Analysis Performed At [facility] Range Method Time Signature VB Text Department: Vascular Surgery Lab [facility] Report Patient: [id number] (ADAM BOUCHER) CPT: 33300 Referring Physician: JOSEPH SILVER, SORTING MACHINE OPERATOR ?? Phone: Indications: left subclavian stenosis, right distal CCA sten osis, hx neck radiation, ? change in patency Findings: ICA Proximal, Right ? PSV (cm/s): 116 ? EDV (cm/s): 18 ? ICA/CCA: 0.4 ? Plaque Structure: Echogenic ? Plaque Surface: Irregular ? %Stenosis: <15% ICA Distal, Right ? PSV (cm/s): 92 ? EDV (cm/s): 21 ? ICA/CCA: 0.3 CCA Distal, Right ? PSV (cm/s): 302 ? EDV (cm/s): 38 ? %Stenosis: >50% CCA Proximal, Right ? PSV (cm/s): 79 ? EDV (cm/s): 13 Subclavian, Artery Proximal, Right ? PSV (cm/s): 169 ? EDV (cm/s): 20 ? %Stenosis: <50% Innominate Artery, Distal, Right ? PSV (cm/s): 182 ? EDV (cm/s): 6 ? %Stenosis: <50% External Carotid Artery, Right ? PSV (cm/s): 220 ? EDV (cm/s): 16 ? %Stenosis: >50% Vertebral, Right ? PSV (cm/s): 106 ? EDV (cm/s): 16 ? Direction of Flow: Antegrade ICA Proximal, Left ? PSV (cm/s): 165 ? EDV (cm/s): 25 ? ICA/CCA: 0.8 ? Plaque Structure: Echogenic ? Plaque Surface: Irregular ? %Stenosis: <15% ICA Distal, Left ? PSV (cm/s): 89 ? EDV (cm/s): 17 ? ICA/CCA: 0.5 CCA Distal, Left ? PSV (cm/s): 197 ? EDV (cm/s): 32 ? %Stenosis: <50% CCA Proximal, Left ? PSV (cm/s): 156 ? EDV (cm/s): 23 Subclavian, Artery Mid, Left ? PSV (cm/s): 175 ? EDV (cm/s): 0 Subclavian, Artery Proximal, Left ? PSV (cm/s): 533 ? EDV (cm/s): 0 ? %Stenosis: >50% External Carotid Artery, Left ? PSV (cm/s): 159 ? EDV (cm/s): 0 ? %Stenosis: <50% Vertebral, Left ? PSV (cm/s): 66 ? EDV (cm/s): 9 ? Direction of Flow: Notched Interpretation: RIGHT: There is irregular plaque in the distal common caroti d artery with elevated velocities and a 2.1 X velocity step-up (PSV 146 cm/s to 302 cm/s; previously 127 cm/s to 237 c m/s, 1.9 X step-up) consistent with a >50% stenosis. There is irregular plaque in the proxima l internal carotid artery causing <15% stenosis when compared to the more distal internal carotid a rtery. The bifurcation level is in the mid neck. Progression in distal common carotid stenosis without change in t he internal carotid artery compared to the previous exam on 05/05/2020. LEFT: There are elevated velocities in t he proximal subclavian artery (PSV 533 cm/s, previously 532 cm/s) consistent wi th a >50% stenosis. There is irregular plaque in the common carotid artery causing 30-40% stenosis by electronic calipers. There is irregular plaque in the proximal strategy intern al carotid artery causing <15% stenosis when c ompared to the more distal internal carotid artery. The bifurcation level is in the mid neck. No significant c hange compared to previous exam on 05/05/2020. Note: There are slightly turbulent Doppler waveforms noted t hroughout the distal innominate, proximal subclavian and carotid arteries suggestive of a more proximal stenosis. Vertebral Artery Data: Patent right vertebral artery with normal antegrade Doppler waveforms and velocities. Patent left vertebral artery with notched Dopp ler waveforms. No significant change compared to previous exam on 05/05/2020. Previous Carotid Studies: Date ?RIGHT ICA St enosis ??PSV ?? Ratio ?? LEFT ICA Stenosis ?? PSV ?? Ratio ? <15% ? 87 ?0.40 ? <15% ? 112 ?? 0.80 ? <15% ? 112 ?? 0.50 ? <15% ? 121 ?? 1.00 ? <15% ? 92 ?0.30 ? <15% ? 147 ?? 0.90 ? <15% ? 131 ?? 0.60 ? <15% ? 158 ?? 0.80 Current Exam ? <15% ? 116 ?? 0.40 ? <15% ? 165 ?? 0.80 Electronically Signed by: ALMA SHAH on 2021-09-21 03:28 :54 PM VB Text End of Report [facility] Report Specimen (Source) Anatomical Collection Method Collection Time Re ceived Time Location / / Volume Laterality 09/17/2021 1:19 PM EDT Joseph Silver SORTING MACHINE OPERATOR VASCULAR ORDERABLES Performing Organization Address City/State/ZIP Code Phon e Number [facility] documented in this encounter Visit Diagnoses Diagnosis Subclavian artery stenosis, left Atherosclerosis of other specified arter ies documented in this encounter Care Teams Door To Door Sales Representative Relationship Specialty Start Date End Date Parviz Baron MD PCP - General 01/08/15 [address] [place] [address] documented as of this encounter
--- OUTSIDE RECORDS SUMMARY | 2022-05-08 00:48 | XMS_ITS | Encounter Summary ---
:1970 Author Organization [facility] Address [address] [place] [address] Care Team Providers Name Role Phone Parviz Baron MD Primary Care Provider Encounter Details Date Type Department Care Team Description 07/20/2000 Results Only [facility] - Mj Whitlock MD conversion CHRIS [address] [place] [address] [place], [place] [id number] [phone] Social History Tobacco Use Types Packs/Day Years Used Date Smoking Tobacco: Never Assessed Sex Assigned at Date Recorded Not on file documented as of this encounter Plan of Treatment Not on filedocumented as of this encounter Procedures Procedure Name Priority Date/Time Associated Comments Diagnosis OCCULT BLOOD SCREEN Routine 07/20/2000 9:45 Resul ts for this EST procedure are i n the results section. COMPLETE BLOOD COUNT Routine 07/20/2000 9:45 Resu lts for this EST procedure are i n the results section. PSA TOTAL, DIAGNOSTIC Routine 07/20/2000 9:45 Res ults for this EST procedure are i n the results section. LIPID PROFILE Routine 07/20/2000 9:45 Results for this (INCLUDES CHOLESTEROL, EST proce dure are in TRIGLYCERIDES, HDL, the resu lts LDL) section. COMPREHENSIVE Routine 07/20/2000 9:45 Results for this METABOLIC PANEL (CMP) EST proced ure are in the results section. documented in this encounter Results OCCULT BLOOD SCREEN (07/20/2000 9:45 EST) [facility] Method Time Signature Specimen Feces JUAN Description [facility] Result First sample submitted in 24 hour period is negative. JUAN Second sample submitted in 24 hour period is negative. [facility] Third sample submitted in 24 hour period is negative. Report Status Final DRAKE [id number] [facility] Specimen Anatomical Collection Method Collection Time Receive d Time (Source) Location / / Volume Laterality 07/20/2000 9:45 07/20/2000 EST 12:43 EST Mj Colvin MD MICROBIOLOGY - GENERAL ORDER KANDY Performing Organization Address City/State/ZIP Code Phon e Number [facility] [address] [place] [address] SERVICES [facility] [address] [place] [address] PSA (07/20/2000 9:45 EST) athologist Signature PSA 0.3 0 - 2.5 [facility] ng/ml LAB Comment: Serum PSA concentration should not be interpreted as absolute evidence for the presence or absence of malignant disease . Assayed utilizing [employer] chemiluminescent technology. Values obtained by using different assay methods cannot be used interchangeably. Specimen Anatomical Collection Method Collection Time Receive d Time (Source) Location / / Volume Laterality 07/20/2000 9:45 07/20/2000 EST 11:36 EST Mj Colvin MD CHEMISTRY & BLOOD GAS ORDERA BLES Performing Organization Address City/[facility] Code Phon e Number [facility] [address] [place] [address] SERVICES [facility] [address] [place] [address] (ABNORMAL) LIPID PROFILE (INCLUDES CHOLESTEROL, TRIGLYCERIDES, HDL, LDL) (07/20/2000 9:45 EST) athologist Signature Cholesterol 269 mg/dl [facility] Comment: Desirable:<200 Borderline:200-239 High Risk:>[id number] Triglycerides 191 (H) 35 - 160 mg/dl [facility] HDL 54 mg/dl [facility] Comment: Highly Desirable:>60 Desirable:35-60 High Risk:<35 Fasting LDL, Calculated 177 mg/dl [facility] Comment: Desirable:<130 Borderline:130-159 High Risk:>ej=[id number] Fasting Chol/HDL Ratio 5.0 [facility] Fasting Specimen Anatomical Collection Method Collection Time Receive d Time (Source) Location / / Volume Laterality 07/20/2000 9:45 07/20/2000 EST 11:36 EST Mj Colvin MD CHEMISTRY & BLOOD GAS ORDERA BLES Performing Organization Address City/[facility]/ZIP Code Phon e Number [facility] [address] [place] [address] SERVICES [facility] [address] [place] [address] (ABNORMAL) HEMAGRAM (07/20/2000 9:45 EST) athologist Signature WBC 8.97 4.0 - 10.4 [facility] K/cmm LAB Comment: Fasting RBC 5.31 4.36 - 5.78 M/cmm [facility] Comment: Fasting Hemoglobin 15.4 13.8 - 17.3 gm/dl [facility] Comment: Fasting HCT 46.9 39.5 - 50.2 % [facility] Comment: Fasting MCV 88 81 - 95 fl [facility] Comment: Fasting MCH 29.0 27.6 - 33.0 pg [facility] Comment: Fasting MCHC 32.8 32.8 - 36.4 gm/dl [facility] Comment: Fasting PLT 378 (H) 141 - 320 K/cmm [facility] Comment: Fasting Specimen Anatomical Collection Method Collection Time Receive d Time (Source) Location / / Volume Laterality 07/20/2000 9:45 07/20/2000 EST 11:36 EST Mj Colvin MD HEMATOLOGY & PF4 ORDERABLES Performing Organization Address City/[facility]/ZIP Code Phon e Number [facility] [address] [place] [address] SERVICES [facility] [address] [place] [address] COMPREHENSIVE METABOLIC PANEL (07/20/2000 9:45 EST) P athologist Signature Potassium 5.0 3.5 - 5.0 [facility] mEq/L LAB Sodium 140 136 - 145 [facility] mEq/L LAB Chloride 102 96 - 110 [facility] mEq/L LAB CO2 30 24 - 30 [facility] mEq/L LAB Total Alkaline 69 38 - 126 [facility] Phosphatase U/L LAB Bilirubin, Total 0.7 0.2 - 1.3 DRA[facility] NICO N mg/dl LAB AST 27 8 - 50 U/L [facility]UAN [facility] ALT 44 15 - 75 JUAN [facility] U/L LAB Albumin 4.3 3.0 - 5.5 JUAN [facility] g/dl LAB Total Protein 7.7 6.0 - 8.5 JUAN [facility] g/dl LAB Creatinine 1.0 0.7 - 1.5 JUAN [facility] mg/dl LAB BUN 17 10 - 26 JUAN [facility] mg/dl LAB Calcium 9.9 8.5 - 10.5 JUAN [facility] mg/dl LAB Calculated 10.0 8.5 - 10.5 JUAN [facility] Calcium mg/dl LAB Glucose, Serum 82 70 - 110 JUAN [facility] mg/dl LAB Albumin/Globulin 1.3 JUAN NICO N Ratio LAB Specimen Anatomical Collection Method Collection Time Receive d Time (Source) Location / / Volume Laterality 07/20/2000 9:45 07/20/2000 EST 11:36 EST Mj Colvin MD CHEMISTRY & BLOOD GAS ORDERA BLES Performing Organization Address City/State/ZIP Code Phon e Number [facility] [address] [place] [address] SERVICES [facility] [address] [place] [address] documented in this encounter Visit Diagnoses Not on filedocumented in this encounter Care Teams Promotions Director Relationship Specialty Start Date End Date Parviz Baron MD PCP - General 10/01/08 [address] [place] [address] documented as of this encounter
--- OUTSIDE RECORDS SUMMARY | 2022-05-08 00:48 | XMS_ITS | Encounter Summary ---
:1970 Author Organization [facility] [address] Care Team Providers Name Role Phone Parviz Baron MD Primary Care Provider Encounter Details Date Type Department Care Team Description 05/05/2020 Office Visit Vascular Surgery at [facility], Post bclavian artery [facility] CYTOTECHNOLOGIST/HISTOTECHNOLOGIST stenosis, left [facility] [address] [facility] [address] [place] [address] [phone] Social History Tobacco Use Types Packs/Day Years Used Date Smoking Tobacco: Former Smokeless Tobacco: Never Sex Assigned at Date Recorded Not on file documented as of this encounter Last Filed Vital Signs Vital Sign Reading Time Taken Comments Blood Pressure 147/48 05/05/2020 2:42 PM EST Pulse 84 05/05/2020 2:41 PM EST Temperature - - Respiratory Rate - - Oxygen Saturation - - Inhaled Oxygen Concentration - - Weight 81.6 kg (180 lb) 05/05/2020 2:41 PM EST reported Height 170.2 cm (5' 7) 05/05/2020 2:41 PM EST reported Body Mass Index 28.19 05/05/2020 2:41 PM EST documented in this encounter Progress Notes Joseph Silver, LEYDI - 05/05/2020 3:00 PM EST F/u subclavian stenosis 50 yo male s/p Age 8 dx with non Hodgkin lymphoma, treated with radiation, lymph node dissection, splenectomy, hypothyroidism. Past h/o c/o hearing heart beat in left ear. Went to see PCP, bruit withheard and carotid duplex showed left subclavian stenosis. Denies TIA's,CVA, chest pain, SOB, DVT, UT, dizziness, lightheadedness, claudication, UE pain or fatigue with use. Deniis family y hx AAA. He does take ASA and stain daily. Today Denies TIa' s or UE fatigue wit use, chest pain, SOB Social Hx: Social History Tobacco Use ??? Smoking status: Former Smoker ??? Smokeless tobacco: Never Used Substance Use Topics ??? Alcohol use: Not on file Medications: Medications 05/05/20 9153 Medication Sig Taking? fluticasone propionate (FLONASE) 50 mcg/actuation [place], Suspension by Nasal route. Yes MULTI-VITAMIN ORAL Take by mouth Daily. Yes levothyroxine (SYNTHROID) 175 mcg Tablet TAKE ONE TABLET BY MOUTH EVERY DAY Yes levothyroxine (SYNTHROID) 200 mcg Tablet TAKE ONE TABLET BY MOUTH ONCE A WEEK DIRECTED Yes atorvastatin (LIPITOR) 20 mg Tablet Take 20 mg by mouth daily. Yes aspirin 81 mg Tablet, Chewable Take 81 mg by mouth daily. Yes Allergies: Allergies Allergen [...] sensory grossly intact Lungs: CTA Heart: RRR 1/6 systolic murmur Abd: Soft, NT, ND, no palpable pulsatile masses Extremity - [place], warm, no ulceration, brisk capillary refill, no edema Vascular: R L Carotid 2/2 bruit (y) 2/2 bruit (y) Radial 2/2 2/2 Femoral 2/2 2/2 Popliteal 2/2 2/2 DP 2/2 2/2 PT 2/2 2/2 Carotid duplex ICA Proximal, Right ?PSV (cm/s): 131 ?EDV (cm/s): 21 ?ICA/CCA: 0.6 ?Plaque Structure: Echogenic ?Plaque Surface: Irregular ?%Stenosis: <15% ICA Distal, Right ?PSV (cm/s): 82 ?EDV (cm/s): 18 ?ICA/CCA: 0.3 CCA Distal, Right ?PSV (cm/s): 238 ?EDV (cm/s): 21 ?%Stenosis: >50% CCA Proximal, Right ?PSV (cm/s): 127 ?EDV (cm/s): 11 External Carotid Artery, Right ?PSV (cm/s): 212 ?EDV (cm/s): 0 ?%Stenosis: >50% Vertebral, Right ?PSV (cm/s): 111 ?EDV (cm/s): 20 ?Direction of Flow: Antegrade ICA Proximal, Left ?PSV (cm/s): 158 ?EDV (cm/s): 24 ?ICA/CCA: 0.8 ?Plaque Structure: Echogenic ?Plaque Surface: Irregular ?%Stenosis: <15% ICA Distal, Left ?PSV (cm/s): 97 ?EDV (cm/s): 22 ?ICA/CCA: 0.5 CCA Distal, Left ?PSV (cm/s): 200 ?EDV (cm/s): 25 ?%Stenosis: <50% CCA Proximal, Left ?PSV (cm/s): 138 ?EDV (cm/s): 20 Subclavian, Artery Proximal, Left ?PSV (cm/s): 532 ?EDV (cm/s): 19 ?%Stenosis: >50% External Carotid Artery, Left ?PSV (cm/s): 174 ?EDV (cm/s): 0 ?%Stenosis: <50% Vertebral, Left ?PSV (cm/s): 69 ?EDV (cm/s): 15 ?Direction of Flow: Notched ? Interpretation: ?? RIGHT: There is irregular plaque in the common carotid artery causing >50% stenosis by electronic calipers along with elevated velocities (PSV 238 cm/s; previously 280 cm/s). There is irregular plaque in the proximal internal carotid artery causing <15% stenosis when compared to the more distal internal carotid artery. The bifurcation level is in the mid neck. No significant change compared to previous exam. ? LEFT: There is irregular plaque in the common carotid artery causing <50% stenosis by electronic calipers. There is bulky irregular plaque in the proximal internal carotid artery causing 16-49% stenosis when compared to the more distal internal carotid artery. There are elevated velocities in the subclavian artery (PSV 532 cm/s; previously 598 cm/s). The bifurcation level is in the mid neck. No significant change compared to previous exam. ? Vertebral Artery Data: ?? RIGHT: Patent vertebral artery with normal antegrade Doppler waveforms and velocities. ?? LEFT: Patent vertebral artery with notched Doppler waveforms. Assessment/Plan: 50 yo male s/p Age 8 dx with non Hodgkin lymphoma, treated with radiation, lymph node dissection, splenectomy, hypothyroidism. Carotid duplex showed left subclavian stenosis. Asymptomatic. B ICA with <15% stenosis, R CCA with >50% stenosis. Left proximal subclavian artery with stable increase velocity 532 cm/s. Patent antegrade rigth vertebral artery LEFT vertebral artery withnotched Doppler waveform consistent with early subclavian steal. Left subclavian stenosis with unequal BP. Asymptomatic subclavian steal. Stenosis likely from to pass radiation. He is asymptomatic. He should always be taken on right arm. Discussed natural history of carotid and subclavian stenosis in r elation to radiation. Discussed symptoms. Instructed to use R UE for BP. Continue ASA and statin. RTC one year with carotid and subclavian duplex or before if symptoms. documented in this encounter Plan of Treatment Not on filedocumented as of this encounter Results Carotid Duplex, Bilateral (09/17/2021 1:19 PM EDT) Component Value Ref Test Analysis Performed At [facility] Range Method Time Signature VB Text Department: Vascular Surgery Lab [facility] Report Patient: [id number] (ADAM BOUCHER) CPT: 24363 Referring Physician: JOSEPH SILVER APRN ?? Phone: Indications: left subclavian stenosis, right [...] There is irregular plaque in the proximal recording studio internship al carotid artery causing <15% stenosis when [...] Laterality 09/17/2021 1:19 PM EDT [facility] CYTOTECHNOLOGIST/HISTOTECHNOLOGIST VASCULAR ORDERABLES Performing Organization Address City/State/ZIP Code Phon e Number [email or web address] documented in this encounter Visit Diagnoses Diagnosis Subclavian artery stenosis, left Atherosclerosis of other specified arter ies documented in this encounter Care Teams Learning Services Coordinator Relationship Specialty Start Date End Date Parviz Baron MD PCP - General 01/08/15 [address] [place] [address] documented as of this encounter
--- OUTSIDE RECORDS SUMMARY | 2022-05-08 00:48 | XMS_ITS | Encounter Summary ---
:1970 Author Organization [facility] [place] [address] Care Team Providers Name Role Phone Parviz Baron MD Primary Care Provider Reason for Referral Diagnostic Test (Routine) - New Request Specialty Diagnoses / Procedures Referred By Contact Refer red To Contact Diagnoses Stenosis of carotid artery, unspecified laterality Subclavian steal syndrome Mell Silver APRN [facility] Vascular Lab 3v Procedures Carotid Duplex, Bilateral [facility] [place] [address] [place] [address] Referral ID Status Reason Start Expiration Visits Visits Date Date Requested Authorized [id number] New Request Specialty 09/17/2021 09/17/2022 1 1 Service Requested Encounter Details Date Type Department Care Team Description 09/17/2021 Office Visit Vascular Surgery at [facility] St enosis of carotid artery, unspecified laterality; [facility] FIGHT MANAGER [facility]clavian [facility] [address] [place] [address] [place] [address] [phone] Social History Tobacco Use Types Packs/Day Years Used Date Smoking Tobacco: Former Smokeless Tobacco: Never Sex Assigned at Date Recorded Not on file documented as of this encounter Last Filed Vital Signs Vital Sign Reading Time Taken Comments Blood Pressure 131/49 09/17/2021 2:02 PM EDT Pulse 81 09/17/2021 2:01 PM EDT Temperature - - Respiratory Rate - - Oxygen Saturation - - Inhaled Oxygen Concentration - - Weight 83.9 kg (185 lb) 09/17/2021 2:01 PM EDT reported Height 170.2 cm (5' 7) 09/17/2021 2:01 PM EDT reported Body Mass Index 28.98 09/17/2021 2:01 PM EDT documented in this encounter Progress Notes Mell Silver, FIGHT MANAGER - 09/17/2021 3:30 PM EDT F/u subclavian stenosis 51 yo male s/p Age 8 dx with non Hodgkin lymphoma, treated with radiation, lymph node dissection, splenectomy, hypothyroidism. Past h/o c/o hearing heart beat in left ear. Went to see PCP, bruit withheard and carotid duplex showed left subclavian stenosis. Denies TIA's,CVA, chest pain, SOB, DVT, AL, dizziness, lightheadedness, claudication, UE pain or fatigue with use. Deniis family y hx AAA. He does take ASA and stain daily. Today Denies TIa' s or UE fatigue wit use, chest pain, SOB Social Hx: Social History Tobacco Use ??? Smoking status: Former Smoker ??? Smokeless tobacco: Never Used Substance Use Topics ??? Alcohol use: Not on file Medications: Medications 05/05/20 8325 Medication Sig Taking? fluticasone propionate (FLONASE) 50 mcg/actuation [place], Suspension by Nasal route. MULTI-VITAMIN ORAL Take by mouth Daily. levothyroxine (SYNTHROID) 175 mcg Tablet TAKE ONE TABLET BY MOUTH EVERY DAY levothyroxine (SYNTHROID) 200 mcg Tablet TAKE ONE TABLET BY MOUTH ONCE A WEEK DIRECTED atorvastatin (LIPITOR) 20 mg Tablet Take 20 mg by mouth daily. aspirin 81 mg Tablet, Chewable Take 81 mg by mouth daily. Allergies: Allergies Allergen Reactions [...] ND, no palpable pulsatile masses Extremity - [place], warm, no ulceration, brisk capillary refill, no edema Vascular: R L Carotid 2/2 bruit (y) 2/2 bruit (y) Radial 2/2 2/2 Femoral 2/2 2/2 Popliteal 2/2 2/2 DP 2/2 2/2 PT 2/2 2/2 Carotid duplex ICA Proximal, Right ?PSV (cm/s): 116 ?EDV (cm/s): 18 ?ICA/CCA: 0.4 ?Plaque Structure: Echogenic ?Plaque Surface: Irregular ?%Stenosis: <15% ICA Distal, Right ?PSV (cm/s): 92 ?EDV (cm/s): 21 ?ICA/CCA: 0.3 CCA Distal, Right ?PSV (cm/s): 302 ?EDV (cm/s): 38 ?%Stenosis: >50% CCA Proximal, Right ?PSV (cm/s): 79 ?EDV (cm/s): 13 Subclavian, Artery Proximal, Right ?PSV (cm/s): 169 ?EDV (cm/s): 20 ?%Stenosis: <50% Innominate Artery, Distal, Right ?PSV (cm/s): 182 ?EDV (cm/s): 6 ?%Stenosis: <50% External Carotid Artery, Right ?PSV (cm/s): 220 ?EDV (cm/s): 16 ?%Stenosis: >50% Vertebral, Right ?PSV (cm/s): 106 ?EDV (cm/s): 16 ?Direction of Flow: Antegrade ICA Proximal, Left ?PSV (cm/s): 165 ?EDV (cm/s): 25 ?ICA/CCA: 0.8 ?Plaque Structure: Echogenic ?Plaque Surface: Irregular ?%Stenosis: <15% ICA Distal, Left ?PSV (cm/s): 89 ?EDV (cm/s): 17 ?ICA/CCA: 0.5 CCA Distal, Left ?PSV (cm/s): 197 ?EDV (cm/s): 32 ?%Stenosis: <50% CCA Proximal, Left ?PSV (cm/s): 156 ?EDV (cm/s): 23 Subclavian, Artery Mid, Left ?PSV (cm/s): 175 ?EDV (cm/s): 0 Subclavian, Artery Proximal, Left ?PSV (cm/s): 533 ?EDV (cm/s): 0 ?%Stenosis: >50% External Carotid Artery, Left ?PSV (cm/s): 159 ?EDV (cm/s): 0 ?%Stenosis: <50% Vertebral, Left ?PSV (cm/s): 66 ?EDV (cm/s): 9 ?Direction of Flow: Notched ? Interpretation: ?? RIGHT: There is irregular plaque in the distal common carotid artery with elevated velocities and a 2.1 X velocity step-up (PSV 146 cm/s to 302 cm/s; previously 127 cm/s to 237 cm/s, 1.9 X step-up) consistent with a >50% stenosis. There is irregular plaque in the proximal internal carotid artery causing <15% stenosis when compared to the more distal internal carotid artery. The bifurcation level is in the mid neck. Progression in distal common carotid stenosis without change in the internal carotid artery compared to the previous exam on 05/05/2020. ? LEFT: There are elevated velocities in the proximal subclavian artery (PSV 533 cm/s, previously 532 cm/s) consistent with a >50% stenosis. There is irregular plaque in the common carotid artery causing 30-40% stenosis by electronic calipers. There is irregular plaque in the proximal internal carotid artery causing <15% stenosis when compared to the more distal internal carotid artery. The bifurcation level is in the mid neck. No significant change compared to previous exam on 05/05/2020. ? Note: There are slightly turbulent Doppler waveforms noted throughout the distal innominate, proximal subclavian and carotid arteries suggestive of a more proximal stenosis. ? Vertebral Artery Data: ?? Patent right vertebral artery with normal antegrade Doppler waveforms and velocities. Patent left vertebral artery with notched Doppler waveforms. No significant change compared to previous exam on 05/05/2020. ?? Assessment/Plan: 51 yo male s/p Age 8 dx with non Hodgkin lymphoma, treated with radiation, lymph node dissection, splenectomy, hypothyroidism. Carotid duplex showed left subclavian stenosis. Asymptomatic. Duplex stable. Asymptomatic Left subclavian stenosis with unequal BP. Asymptomatic subclavian steal. Stenosis likely from to pass radiation. He is asymptomatic. He should always be taken on right arm. Discussed natural history of carotid and subclavian stenosis in relation to radiation. Discussedsymptoms. Instructed to use R UE for BP. Continue ASA and statin. RTC one year with carotid and subcl glenis duplex or before if symptoms. documented in this encounter Plan of Treatment Not on filedocumented as of this encounter Visit Diagnoses Diagnosis Stenosis of carotid artery, unspecified laterality Subclavian steal syndrome documented in this encounter Care Teams Screw Machine Repairer Relationship Specialty Start Date End Date Parviz Baron MD PCP - General 01/08/15 [address] [place] [address] documented as of this encounter
--- OUTSIDE RECORDS SUMMARY | 2022-05-08 00:48 | XMS_ITS | Encounter Summary ---
:1970 Author Organization [facility] [place] [address] Care Team Providers Name Role Phone Parviz Baron MD Primary Care Provider Reason for Visit Diagnostic Test (Routine) - Closed Specialty Diagnoses / Procedures Referred By Contact Refer red To Contact Vascular Surgery Diagnoses Carotid stenosis, right Parviz Baron MD [facility] V[facility] Lab 3v [address] [place] [address] [place] [address] Phone: Referral ID Status Reason Start Date Expiration Date Visits Requ ested Visits Authorized [id number] Closed 10/06/2017 10/06/2018 2 2 Encounter Details Date Type Department Care Team Description 11/14/2017 [facility] [place] [facility], [facility] [place] [address] Social History Tobacco Use Types Packs/Day Years Used Date Smoking Tobacco: Unknown Sex Assigned at Date Recorded Not on file documented as of this encounter Medications at Time of Discharge Medication Sig Dispensed Refills Start Date End Date fluticasone propionate by Nasal route. 0 06/30/19 11 (FLONASE) 50 mcg/actuation [place], Suspension MULTI-VITAMIN ORAL Take by mouth 0 06/30/2010 Daily. penicillin v potassium Take 250 mg by 0 04/27/2018 (VEETID) 250 mg Tablet mouth 4 times daily. levothyroxine (SYNTHROID) Take 100 mcg by 0 05/07/2019 100 mcg Tablet mouth daily. documented as of this encounter Plan of Treatment Not on filedocumented as of this encounter Procedures Procedure Name Priority Date/Time Associated Diagnosis Commshivani nts CAROTID DUPLEX, Routine 11/14/2017 2:38 PM Stenosis of carotid Results for this BILATERAL EDT artery, unspecified procedur e are in laterality the results section. documented in this encounter Results Cerebrovascular Duplex, Bilateral (11/14/2017 2:38 PM EDT) Component Value Ref Test Analysis Performed At [facility] Range Method Time Signature VB Text Department: Vascular Surgery Lab VASCUBASE Report Patient: [id number] (ADAM WHARTON) CPT: 71898 ICD10: I65.29 Referring Physician: SHI TREJO ?? Indications: Hx of neck radiation with L carotid bruit ICD10 Diagnosis Code: I65.29 Findings: ICA Proximal, Right ? PSV (cm/s): 87 ? EDV (cm/s): 17 ? ICA/CCA: 0.4 ? Plaque Structure: Echogenic ? Plaque Surface: Irregular ? %Stenosis: <15% ICA Distal, Right ? PSV (cm/s): 71 ? EDV (cm/s): 21 ? ICA/CCA: 0.3 CCA Distal, Right ? PSV (cm/s): 240 ? EDV (cm/s): 41 ? %Stenosis: >50% CCA Proximal, Right ? PSV (cm/s): 147 ? EDV (cm/s): 17 External Carotid Artery, Right ? PSV (cm/s): 131 ? EDV (cm/s): 12 ? %Stenosis: <50% Vertebral, Right ? PSV (cm/s): 84 ? EDV (cm/s): 16 ? Direction of Flow: Antegrade ICA Proximal, Left ? PSV (cm/s): 112 ? EDV (cm/s): 21 ? ICA/CCA: 0.8 ? Plaque Structure: Echogenic ? Plaque Surface: Irregular ? %Stenosis: <15% ICA Distal, Left ? PSV (cm/s): 83 ? EDV (cm/s): 23 ? ICA/CCA: 0.6 CCA Distal, Left ? PSV (cm/s): 135 ? EDV (cm/s): 22 CCA Middle, Left ? %Stenosis: Minimal CCA Proximal, Left ? PSV (cm/s): 127 ? EDV (cm/s): 20 Subclavian, Artery Proximal, Left ? PSV (cm/s): 304 ? EDV (cm/s): 8 ? %Stenosis: >50% External Carotid Artery, Left ? PSV (cm/s): 113 ? EDV (cm/s): 0 ? %Stenosis: <50% Vertebral, Left ? PSV (cm/s): 35 ? EDV (cm/s): 11 ? Direction of Flow: Antegrade Interpretation: RIGHT: There is irregular plaque in the distal common carotid artery causing a 30-40% stenosis by electronic calipers. However there is a 2 .1 x step up (115-240 cm/s) suggestive of a > 50% stenosis. There is minimal irregular plaque in the proximal internal car otid artery causing < 15% stenosis when compared to the more distal internal carotid artery. The bifurcati on level is in the mid neck. LEFT: There is a > 50% steno sis in the proximal subclavian artery with a PSV of 304 cm/s consistent with a > 50% stenosis. A thin layer of circumferential plaque i s present in the common carotid artery causing minimal stenosis. There is minimal irregular plaqu e in the proximal internal carotid artery caus ing < 15% stenosis when compared to the more distal internal carotid artery. The bifurcation level is in the mid neck. Vertebral Artery Data: Left- Patent vertebral artery with normal antegrade Doppler waveforms and velocities. Right- There is to-fro flow consistent with subclavian steal . Brachial pressure gradient exists betwee n right and left arms. Doppler-derived brachial systolic blood pressure: Right = 140 mm Hg; Left = 125 mm Hg. Comparison: ??No previous study in our vascular lab da tabase for comparison. Electronically Signed by: SHANIQUA SAMANO on 2017-11-14 07:23: 16 PM VB Text End of Report VASCUBASE Report Specimen (Source) Anatomical Collection Method Collection Time Re ceived Time Location / / Volume Laterality 11/14/2017 2:38 PM EDT Shi Trejo MD VASCULAR ORDERABLES Performing Organization Address City/State/ZIP Code Phon e Number VASCUBASE documented in this encounter Visit Diagnoses Diagnosis Stenosis of carotid artery, unspecified laterality documented in this encounter Care Teams Quarter Trimmer Relationship Specialty Start Date End Date Parviz Baron MD PCP - General 01/08/15 [address] [place] [address] documented as of this encounter
--- OUTSIDE RECORDS SUMMARY | 2022-05-08 00:48 | XMS_ITS | Encounter Summary ---
:1970 Author Organization [facility] [place] [address] Care Team Providers Name Role Phone Parviz Baron MD Primary Care Provider Reason for Visit Reason Onset Date Comments Referral 04/20/2018 Encounter Details Date Type Department Care Team Description 04/20/2018 Telephone Vascular Surgery at [facility] [place] [address] Social History Tobacco Use Types Packs/Day Years Used Date Smoking Tobacco: Unknown Sex Assigned at Date Recorded Not on file documented as of this encounter Miscellaneous Notes Telephone Encounter - Michaelle Azar - 04/20/2018 12:01 PM EST I have called patient's pcp's office (Parviz Baron) x2 to request referral so we can treat this patient. I have not seen it yet. I will call and follow up on Monday if we haven't received it documented in this encounter Plan of Treatment Not on filedocumented as of this encounter Visit Diagnoses Not on filedocumented in this encounter Care Teams Director Market Intelligence Relationship Specialty Start Date End Date Parviz Baron MD PCP - General 01/08/15 [address] [place] [address] documented as of this encounter
--- OUTSIDE RECORDS SUMMARY | 2022-05-08 00:48 | XMS_ITS | Encounter Summary ---
:[address] [facility] Address [address] [place] [address] Care Team Providers Name Role Phone Parviz Baron MD Primary Care Provider Encounter Details Date Type Department Care Team Description 01/03/2002 Hospital Encounter [facility] Yakov Lees [facility] [address] [place] [address] Social History Tobacco Use Types Packs/Day Years Used Date Smoking Tobacco: Never Alcohol Use Standard Drinks/Week Comments Yes 2 (1 standard drink = 0.6 oz pure alcoho l) Sex Assigned at Date Recorded Not on file documented as of this encounter Plan of Treatment Not on filedocumented as of this encounter Visit Diagnoses Not on filedocumented in this encounter Care Teams Sugar Drier Relationship Specialty Start Date End Date Parviz Baron MD PCP - General 10/01/08 [address] [place] [address] documented as of this encounter
--- OUTSIDE RECORDS SUMMARY | 2022-05-08 00:48 | XMS_ITS | Encounter Summary ---
:1970 Author Organization [facility] [place] [address] Care Team Providers Name Role Phone Parviz Baron MD Primary Care Provider Reason for Visit Reason Comments Skin Lesion Encounter Details Date Type Department Care Team Description 05/04/2015 [facility] [place] [facility] [address] [facility] [address] [facility] Boni B DERMATOLOGY [place], [place] [phone] Social History Tobacco Use Types Packs/Day Years Used Date Smoking Tobacco: Unknown Sex Assigned at Date Recorded Not on file documented as of this encounter Patient Instructions Patient InstructionsMary Sanchez LPN - 05/04/2015 9:54 AM EST Images from the original note were not included. [facility] Skin Lesions: After Your Visit Your Care Instructions A skin lesion is a general term used for the different types of bumps, spots, moles or other growthsthat may appear on your skin. Most skin lesions are harmless, but sometimes they can be a sign of skin cancer or other health problems. Depending on what type of lesion you have, your doctor may cut out all or a small area of the skin tissue and send it to a lab to be looked at under a microscope. This is called a biopsy. A biopsy may be done to figure out what the lesion is or to make sure it is not skin cancer. Follow-up care is a marino part of your treatment and safety. Be sure to make and go to all appointments, and call your doctor if you are having problems. It's also a good idea to know your test results and keep a list of the medicines you take. How can you care for yourself at home? ?? If your doctor removed or biopsied a skin lesion, keep the wound bandaged and dry for the first day. ?? After the first day, clean the wound with soap and water 2 times a day unless your doctor gives you different instructions. Don't use hydrogen peroxide or alcohol, which can slow healing. ?? You may cover the wound with a thin layer of petroleum jelly, such as Vaseline, and a nonstick bandage. ?? If you have stitches, you may get other instructions. You will have to return to have the stitches removed. ?? If a scab forms, do not pull it off. Let it fall off on its own. Wounds heal faster if no scab forms. Washing the area every day and using the ointment will help keep a scab from forming. ?? If the wound bleeds, put direct pressure on it with a clean cloth until the bleeding stops. ?? Take an [id number]-xlwejnh pain medicine, such as acetaminophen (Tylenol), ibuprofen (Advil, Motrin), or naproxen (Aleve). Read and follow all instructions on the label. ?? Do not take two or more pain medicines at the same time unless the doctor told you to. Many pain medicines have acetaminophen, which is Tylenol. Too much acetaminophen (Tylenol) can be harmful. ?? If you had a growth frozen off with liquid nitrogen, you may get a blister. Do not break it. Let it dry up on its own. It is common for the blister to fill with blood. You do not need to do anything about this, but if it becomes too painful, call your doctor. When should you call for help? Call your doctor now or seek immediate medical care if: ?? You have signs of infection, such as: ?? Increased pain, swelling, warmth, or redness. ?? Red streaks leading from the wound. ?? Pus draining from the wound. ?? A fever. ?? The wound is bleeding a lot, and direct pressure does not stop it. Watch closely for changes in your health, and be sure to contact your doctor if: ?? You do not get better after 2 weeks of home care. Where can you learn more? Visit our health information library at [email or web address] Acquisitions You can also view health information on [employer], your personal patient account. Log in or sign up today. Enter E372 in the search box to learn more about Skin Lesions: After Your Visit. ?? [phone] [employer]. Care instructions adapted under license by [facility]. This care instruction is for use with your licensed healthcare professional. If you have questionsabout a medical condition or this instruction, always ask your healthcare professional. [employer] disclaims any warranty or liability for your use of this information. Content Version: 10.4.234230; Current as of: August 14, 2013 documented in this encounter Progress Notes Yogesh Barreto MD - 05/04/2015 9:52 AM EST Problem: Anterior neck lesion. Adam is a 45-year-old gentleman who is referred today by Prachi Fermin for an anterior base of neck lesion. This developed over the last year or so. The patient has a history of Hodgkin's lymphoma diagnosed and treated with RT and surgery when he was in third grade. He apparently has done well oncologically since then. He believes that the neck lesion began when he cut himself shaving, but it has not healed over the last year, and so today's referral was made. Physical examination reveals a 1.3 cm erythematous papular nodule with a pearly appearance and telangiectasias running throughout its substance. It is concerning for possible BCCA. The rest of the skin examination of the face, sun exposed skin of the neck, arms, forearms, and hands is benign. 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 a. After obtaining informed consent site was anesthetized and shave C and D times three performed. After curettage, site measured 1.3 cm in diameter. b. Triple antibiotic ointment and Band-Aid placed. Wound care instructions and supplies given. c. Recommend I see the patient again in another six months for repeat check. dTanner Discussed excellent prognosis of this tumor type and its increased incidence in patients status post radiation therapy or with excessive sun exposure history (the former is more the trigger in this patient's case). COPY: Tara Knowles.P. documented in this encounter Plan of Treatment Not on filedocumented as of this encounter Visit Diagnoses Diagnosis Basal cell carcinoma Basal cell carcinoma of skin, site unspe cified documented in this encounter Care Teams Organizational Development Manager Relationship Specialty Start Date End Date Parviz Baron MD PCP - General 01/08/15 [address] [place] [address] documented as of this encounter
--- OUTSIDE RECORDS SUMMARY | 2022-05-08 00:48 | XMS_ITS | Encounter Summary ---
:1970 [place] [address] Care Team Providers Name Role Phone Parviz Baron MD Primary Care Provider Encounter Details Date Type Department Care Team Description 05/05/2020 Tech Visit Vascular Lab at [facility], [place] [address] Social History Tobacco Use Types Packs/Day Years Used Date Smoking Tobacco: Former Smokeless Tobacco: Never Sex Assigned at Date Recorded Not on file documented as of this encounter Plan of Treatment Not on filedocumented as of this encounter Procedures Procedure Name Priority Date/Time Associated Diagnosis Comme nts CAROTID DUPLEX, Routine 05/05/2020 1:05 PM Subclavian arterial Results for this BILATERAL EST stenosis procedure are i n the results section. documented in this encounter Results Carotid Duplex, Bilateral (05/05/2020 1:05 PM EST) Component Value Ref Test Analysis Performed At [facility] Range Method Time Signature VB Text Department: Vascular Surgery Lab VASCUBASE Report Patient: [id number] (ADAM BOUCHER) CPT: 57568 ICD10: I77.1 Referring Physician: JOSEPH SILVER, REGISTERED NURSE RENAL ?? Phone: Indications: carotid and subclavian artery [...] / Volume Laterality 05/05/2020 1:05 PM EST Joseph Silver REGISTERED NURSE RENAL VASCULAR ORDERABLES Performing Organization Address City/State/ZIP Code Phon e Number VASCUBASE documented in this encounter Visit Diagnoses Diagnosis Subclavian arterial stenosis Stricture of artery documented in this encounter Care Teams Grey Goods Examiner Relationship Specialty Start Date End Date Parviz Baron MD PCP - General 01/08/15 [address] [place] [address] documented as of this encounter
--- OUTSIDE RECORDS SUMMARY | 2022-05-08 00:48 | XMS_ITS | Clinical Summary ---
:1970 Author Organization [facility] [place] [address] Care Team Providers Name Role Phone Parviz Baron MD Primary Care Provider Allergies Active Allergy Reactions Severity Noted Date Comments Diphenhydramine-Zinc Acetate 05/04/2015 Medications Medication Sig Dispensed Refills Start Date End Date Status atorvastatin (LIPITOR) Take 20 mg by 0 Active 20 mg Tablet mouth daily. aspirin 81 mg Tablet, Take 81 mg by 0 Active Chewable mouth daily. fluticasone propionate by Nasal route. 0 06/30/2010 Active (FLONASE) 50 mcg/actuation [place], Suspension MULTI-VITAMIN ORAL Take by mouth 0 06/30/2010 Active Daily. levothyroxine 150 mcg. 3 03/02/2019 Activ e (SYNTHROID) 175 mcg Tablet Active Problems Problem Noted Date Subclavian artery stenosis, left 04/27/2018 Non Hodgkin's lymphoma 04/27/2018 Overview: Age 8 dx with non Hodgkin lymphoma Jeannie delmy with radiations , lymph node dissection, splenectomy H/O splenectomy 04/27/2018 Hypothyroidism 04/27/2018 Stenosis of carotid artery 10/17/2017 Basal cell carcinoma 05/04/2015 Social History Tobacco Use Types Packs/Day Years Used Date Smoking Tobacco: Former Smokeless Tobacco: Never Sex Assigned at Date Recorded Not on file Last Filed Vital Signs Vital Sign Reading Time Taken Comments Blood Pressure 131/49 09/17/2021 2:02 PM EDT Pulse 81 09/17/2021 2:01 PM EDT Temperature - - Respiratory Rate 16 04/27/2018 9:20 AM EST Oxygen Saturation - - Inhaled Oxygen Concentration - - Weight 83.9 kg (185 lb) 09/17/2021 2:01 PM EDT reported Height 170.2 cm (5' 7) 09/17/2021 2:01 PM EDT reported Body Mass Index 28.98 09/17/2021 2:01 PM EDT Plan of Treatment Health Maintenance Due Date Last Done Comments Hepatitis B vaccine (0-59 yrs) (1 of 3 - 3-dose series) 02/19/19 Covid-19 Vaccine (#1) 1970 Pneumococcal Vaccine: At-Risk 5-64yrs (1 - PCV) 02/19/1974 HIV screen 02/19/1986 Hepatitis C Screening 02/19/1986 Tdap adult 02/19/1987 Tetanus vaccine 02/19/1987 Zoster vaccine (1 of 2) 02/19/1987 Diabetes Screening (HgbA1C or Glucose) 2008 Colonoscopy 02/19/2013 Influenza (Flu) vaccine (1 of 1 - Influenza standard 02/03/2022 series) Insurance Payer Benefit Plan Subscriber ID Effective Dates Phone Address Type / Group [facility]UE [facility] [id number] [facility] [id number] [facility] [address] [facility] [phone] (Work) [phone] Care Teams Firefighter Type One Relationship Specialty Start Date End Date Parviz Baron MD PCP - General 01/08/15 [address] [place] [address]
--- OUTSIDE RECORDS SUMMARY | 2022-05-08 00:48 | XMS_ITS | Encounter Summary ---
:1970 Author Organization [facility] [place] [address] Care Team Providers Name Role Phone Parviz Baron MD Primary Care Provider Encounter Details Date Type Department Care Team Description 10/17/2017 Orders Only Vascular Surgery at [facility] tenosis of carotid [facility] A, RN artery, [place] [id number] Social History Tobacco Use Types Packs/Day Years Used Date Smoking Tobacco: Unknown Sex Assigned at Date Recorded Not on file documented as of this encounter Plan of Treatment Not on filedocumented as of this encounter Results Cerebrovascular Duplex, Bilateral (11/14/2017 2:38 PM EDT) Component Value Ref Test Analysis Performed At [facility] Range Method Time Signature VB Text Department: Vascular Surgery Lab VASCUBASE Report Patient: [id number] (ADAM BOUCHER) CPT: 42315 ICD10: I65.29 Referring Physician: SHI TOSCANO ?? Indications: Hx of neck radiation with [...] Volume Laterality 11/14/2017 2:38 PM EDT Shi Toscano MD VASCULAR ORDERABLES Performing Organization Address City/State/ZIP Code Phon e Number VASCUBASE documented in this encounter Visit Diagnoses Diagnosis Stenosis of carotid artery, unspecified laterality documented in this encounter Care Teams Grain Spouter Relationship Specialty Start Date End Date Parviz Baron MD PCP - General 01/08/15 [address] [place] [address] documented as of this encounter
--- OUTSIDE RECORDS SUMMARY | 2022-05-08 00:48 | XMS_ITS | Encounter Summary ---
:1970 Author Organization [facility] Address [address] [place] [address] Care Team Providers Name Role Phone Parviz Baron MD Primary Care Provider Encounter Details Date Type Department Care Team Description 12/03/2001 Hospital Encounter [facility]- Yakov Lees [facility] [address] [place] [address] Social History Tobacco Use Types Packs/Day Years Used Date Smoking Tobacco: Never Alcohol Use Standard Drinks/Week Comments Yes 2 (1 standard drink = 0.6 oz pure alcoho l) Sex Assigned at Date Recorded Not on file documented as of this encounter Plan of Treatment Not on filedocumented as of this encounter Visit Diagnoses Not on filedocumented in this encounter Care Teams Propeller Inspector Relationship Specialty Start Date End Date Parviz Baron MD PCP - General 10/01/08 [address] [place] [address] documented as of this encounter
--- OUTSIDE RECORDS SUMMARY | 2022-05-08 00:48 | XMS_ITS | Encounter Summary ---
:[address] [facility] Address [address] [place] [address] Care Team Providers Name Role Phone Parviz Baron MD Primary Care Provider Encounter Details Date Type Department Care Team Description 03/05/2002 Hospital Encounter [facility] - Pedro Pollard, Other MD [address] [place], [place] [phone] Social History Tobacco Use Types Packs/Day Years Used Date Smoking Tobacco: Never Alcohol Use Standard Drinks/Week Comments Yes 2 (1 standard drink = 0.6 oz pure alcoho l) Sex Assigned at Date Recorded Not on file documented as of this encounter Plan of Treatment Not on filedocumented as of this encounter Visit Diagnoses Not on filedocumented in this encounter Care Teams Bridge Gang Worker Relationship Specialty Start Date End Date Parviz Baron MD PCP - General 10/01/08 [address] [place] [address] documented as of this encounter
--- OUTSIDE RECORDS SUMMARY | 2022-05-08 00:48 | XMS_ITS | Encounter Summary ---
:1970 Author Organization [facility] [place] [address] Care Team Providers Name Role Phone Parviz Baron MD Primary Care Provider Reason for Visit Reason Comments Skin Check waist up Encounter Details Date Type Department Care Team Description 11/12/2015 Office Visit Dermatology at [facility] Basal c ell carcinoma [place] MD [address] [facility] [address] [facility] Boni B DERMATOLOGY [place], [place] [phone] Social History Tobacco Use Types Packs/Day Years Used Date Smoking Tobacco: Unknown Sex Assigned at Date Recorded Not on file documented as of this encounter Progress Notes Yogesh Barreto MD - 11/12/2015 10:26 AM EDT Problem: 1. History of BCCA, anterior base of neck, April 2015. 2. History of Hodgkin's lymphoma, diagnosed and treated with RT and surgery when he was in third grade, no recurrences or problems since. Adam follows up for a six-month check. He has been doing well. Back in April I removed a 1.3 cm nodule, and things have healed up well in the intervening time, and he has had no other areas of concern. Physical examination reveals scar but no evidence of recurrence at the biopsy site on the anterior base of his neck. Examination of the face, the ears, the neck, the chest, the back, hands, arms, forearms is today benign. Assessment and Plan: History of SCCA, anterior base of neck. a. No evidence of recurrence. b. Patient reassured. c. Discussed the increased risk that he will have of nonmelanoma cutaneous malignancies due to his history of RT. However, would not recommend that he be seen on a regularly scheduled basis at this point but just p.r.n. for new lesions/concerns. The patient understands and agrees. Reassured about his benign examination today. Return to clinic p.r.n. COPY: Prachi Fermin N.P. documented in this encounter Plan of Treatment Not on filedocumented as of this encounter Visit Diagnoses Diagnosis Basal cell carcinoma Basal cell carcinoma of skin, site unspe cified documented in this encounter Care Teams Ballistics Teacher Relationship Specialty Start Date End Date Parviz Baron MD PCP - General 01/08/15 [address] [place] [address] documented as of this encounter
--- OUTSIDE RECORDS SUMMARY | 2022-05-08 00:48 | XMS_ITS | Encounter Summary ---
:1970 Author Organization [facility] Address [address] [place] [address] Care Team Providers Name Role Phone Parviz Baron MD Primary Care Provider Encounter Details Date Type Department Care Team Description 11/09/2001 Hospital Encounter [facility] [address] [place] [address] Social History Tobacco Use Types Packs/Day Years [...] Diagnosis Comme nts HEMAGRAM & DIFF Routine 11/09/2001 12:20 EDT Resu lts for this procedure are i n the results section. TSH Routine 11/09/2001 12:20 EDT Results for this procedure are i n the results section. T4 FREE Routine 11/09/2001 12:20 EDT Results for this procedure are i n the results section. documented in this encounter Results TSH (11/09/2001 12:20 EDT) P athologist Signature TSH 2.86 0.35 - 5.50 DRAKE VELAZQUEZ uIU/ml LAB Specimen Anatomical Collection Method Collection Time Receive d Time (Source) Location / / Volume Laterality 11/09/2001 12:20 11/09/2001 EDT 12:22 EDT Yakov Pollard MD CHEMISTRY & BLOOD GAS ORDERA BLES Performing Organization Address City/State/ZIP Code Phon e Number [facility] [address] [place] [address] SERVICES [facility] [address] [place] [address] T4 FREE (11/09/2001 12:20 EDT) P athologist Signature Free T4 1.3 0.8 - 1.8 DRAKE VELAZQEUZ ng/dl LAB Specimen Anatomical Collection Method Collection Time Receive d Time (Source) Location / / Volume Laterality 11/09/2001 12:20 11/09/2001 EDT 12:22 EDT Yakov Pollard MD CHEMISTRY & BLOOD GAS ORDERA BLES Performing Organization Address City/State/ZIP Code Phon e Number [facility] [address] [place] [address] SERVICES [facility] [address] [place] [address] (ABNORMAL) HEMAGRAM & DIFF (11/09/2001 12:20 EDT) Component Value Ref Test Analysis Performed At Patholo gist Range Method Time Signature WBC 11.00 (H) 4.0 - [facility] 10.4 [facility] K/cmm RBC 5.15 4.36 - [facility] 5.78 [facility] M/cmm Hemoglobin 15.6 13.8 - [facility] 17.3 [facility] gm/dl HCT 45.5 39.5 - [facility] 50.2 % [facility] MCV 88 81 - 95 [facility] fl [facility] MCH 30.2 27.6 - JUAN 33.0 pg [facility] MCHC 34.2 32.8 - JUAN 36.4 [facility] gm/dl PLT 324 (H) 141 - JUAN 320 [facility] K/cmm RDW-CV 13.0 11.8 - [facility] 14.1 % [facility] Neutrophils 48 45.5 - [facility] 79.7 % [facility] Lymphocytes 37 15.0 - [facility] 46.8 % [facility] Monocytes 11 1.8 - [facility] 12.0 % [facility] Eosinophils 4 0.6 - JUAN 6.9 % [facility] ABS 5.28 2.20 - [facility] Neutrophils 8.85 [facility] K/cmm ABS Lymphs 4.07 (H) 1.09 - [facility]UAN 3.30 [facility] K/cmm ABS Monocytes 1.21 (H) 0.1 - [facility]UAN 0.8 [facility] K/cmm ABS 0.44 0.03 - [facility] Eosinophils 0.61 [facility] K/cmm RBC Morphology 1+ Poikilocytosis FLETCHE R [facility] Platelet 1+ Clumped [facility] Morphology platelets [facility] Type of Diff: Manual [facility] Specimen Anatomical Collection Method Collection Time Receive d Time (Source) Location / / Volume Laterality 11/09/2001 12:20 11/09/2001 EDT 12:22 EDT Yakov Pollard MD HISTORICAL LAB FOR SQ LOAD Performing Organization Address City/State/ZIP Code Phon e Number [facility] [address] [place] [address] SERVICES [facility] [address] [place] [address] documented in this encounter Visit Diagnoses Not on filedocumented in this encounter Care Teams Concrete Layer Relationship Specialty Start Date End Date Parviz Baron MD PCP - General 10/01/08 [address] [place] [address] documented as of this encounter
[2022-05-08] MEDS: Famotidine 20 MG/2 ML VIAL IVP (01:12)
[2022-05-08] MEDS: Sucralfate 1 GM TAB PO (01:12)
--- NOTE | 2022-05-08 02:30 | RT.EKG_ITS ---
APPROVED REPORT Exam: Resting ECG Reason for Exam: chest pain Patient Location: E HR:88 bpm ECG Measurements Heart Rate 88 AXIS ND 144 P 66 QRSd 87 QRS 34 QT 337 T 37 QTc 407 Conclusion Sinus rhythm...normal P axis, V-rate 60- 99. Sinus. Normal axis. No STEMI. I have reviewed and interpreted ECG and agree with software generated interpretation.
[2022-05-08 02:42] LABS: Troponin I < 50 ng/L (<or=60)
[2022-05-08 02:48] VITALS: BP 150/58; PULSE 87; RESP 16; TEMP 36.7; O2SAT 96
== END 2022-05-08 03:00 | disposition home or self-care (01) ==
PROVIDERS: Emergency Provider Physician Assistant; PCP Family Medicine
DX: R07.2 Precordial pain (principal); D72.829 Elevated white blood cell count, unspecified; J45.909 Unspecified asthma, uncomplicated; E03.9 Hypothyroidism, unspecified; E78.5 Hyperlipidemia, unspecified; Z79.82 Long term (current) use of aspirin; Z79.51 Long term (current) use of inhaled steroids; Z90.49 Acquired absence of other specified parts of digestive tract
CPT/HCPCS: 80053; 93005; 96374; 99284; 71046; 83735; 84484; 85025; 85379; 93010

== ENCOUNTER 2022-05-09 07:00 | Day surgery (SDC) | payer BC, SELFPAY ==
--- NOTE | 2022-05-09 06:24 | W.COLOREPORT ---
Date of service: 05/09/22 Time of Service: : Colonoscopy Report Date of procedure: 05/09/22 Pre-op diagnosis general: Colon Cancer Screening, hx of polyps Post-op diagnosis procedure note: other (polyps and diverticulosis) Procedure: Colonoscopy with polypectomy Surgeon: Samra Mabry Anesthesia Type: General:No Airway Estimated blood loss (mL): 3 Pathology: other (ascending polyp, sigmoid polyp x2 and rectal polyp) Complications: None Disposition: same day Indications: The patient? is a pleasant? 52-year-old male who is here to discuss another screening colonoscopy. ? His last colonoscopy was in 2019.? He was noted to have a sessile serrated adenoma in the ascending colon.? He denies any changes in bowel habits, melena, hematochezia, unintentional weight loss or family history of colon cancer.? The procedure and risks were discussed.? The prep was reviewed in detail.? Risks, benefits and complications have been reviewed. Complications include but are not limited to bleeding, pain, perforation, missed small lesion/polyp, sore throat, aspiration and adverse reaction to the medications. Questions were entertained and answered to their satisfaction and they wished to proceed. No guarantees were given or implied. Prep: Miralax/Dulcolax Procedure Start Time: : Procedure End Time: :59 Retraction Time: 28 minutes Findings: several small polyps and mild house-diverticulosis Procedure Description: After informed consent was obtained the patient was taken to the procedure room and placed in a left decubitous position. Monitors were applied and a time out was done. The patients name, date of , procedure, allergies to medications and metal in their body was reviewed. The patient was then sedated. Once sedated and comfortable a rectal exam was done. External exam was normal. Internal exam revealed a normal sphincter tone and no palpable masses. The prostate felt smooth. The scope was then introduced and retro-flexed. No internal hemorrhoids, polyps or masses were identified on retro-flexion. The scope was then advanced to the cecum without difficulty. The ileocecal vlave and appendiceal orifice were identified. The prep was adequate. The scope was then slowly retracted over 28 minutes back into the rectum. Polyps were removed with cold forceps in the ascending colon, sigmoid colon x2 and rectum. There was mild house- diverticulosis noted. The scope was removed and the patient was woken up and taken back to Same day surgery in stable condition. The patient tolerated the procedure well and there were no immediate complications.
--- NOTE | 2022-05-09 06:25 | W.PM.DSUDISC ---
Date of service: 05/09/22 Time of Service: 09:07 Discharge Plan Disposition Patient Disposition: HOME Condition: Good Discharge Details Reason For Visit: Colonoscopy Attending Provider: Samra Mabry Primary Care Provider: Carmelo Benavidez Home Meds and New Rx's Prescriptions: New famotidine [Pepcid] 40 mg tablet 40 mg PO DAILY Qty: 30 0RF Continued atorvastatin 20 mg tablet 20 mg PO DAILY albuterol sulfate [Proventil HFA] 90 mcg/actuation HFA aerosol inhaler 2 puff IH Q6H PRN fluticasone propionate 50 mcg/actuation spray,suspension 1 spray YOLANDA DAILY PRN levothyroxine 150 mcg capsule 150 mcg PO DAILY aspirin [Laila Low Dose Aspirin] 81 mg Tablet,Delayed Release (Dr/Ec) 81 mg PO DAILY Discontinued bisacodyl [Dulcolax (bisacodyl)] 5 mg tablet,delayed release (DR/EC) 5 mg PO ONCE Qty: 4 0RF Rx Instructions: Take according to provider's instructions for colonoscopy prep. polyethylene glycol 3350 17 gram/dose powder 17 g PO ONCE Qty: 238 0RF Rx Instructions: To be taken as directed by prescriber's office for colonoscopy prep. sucralfate [Carafate] 1 gram tablet 1 gm PO QACHS Qty: 14 0RF Discharge Instructions Instructions: Gastritis (DC), Diet for Stomach Ulcers and Gastritis (ED) Additional Instructions: Findings: polyps and mild diverticulosis Follow up: more then likely 3 years Please call if you develop: fevers >101.5 Nausea or Vomiting Abdominal pain that is not transient Rectal bleeding that is more then a tbsp A hard abdomen and inability to pass gas DAY SURGERY UNIT POST ENDOSCOPY INSTRUCTIONS Instructions for everyone who is given Anesthesia: For your safety, please do the following for the next 24 Hours: a. Do not drive or operate dangerous equipment b. Do not drink alcohol beverages or use any recreational drugs for the first 24 hours or while taking pain medications. The medications in your body may have a reaction that can be dangerous. c. Do not make any important decisions or sign any important papers 1. Generally there are no restrictions on your activity after a day or so has gone by, but you may feel a bit fatigued for a few days. 2. After you arrive home you may have a light meal and return to a normal diet as you can tolerate it without feeling sick to your stomach. 3. After surgery, you may feel pain or discomfort. This should be only transient, but if it persists please contact your doctor. 4. If there are any questions regarding the findings of your procedure, please feel free to contact your doctor. 6. If you are unable to contact your doctor with a problem, contact the hospital at [phone]. 7. Continue all your regular medications unless directed otherwise. I understand the above instructions and have no questions. Signature of Patient or Responsible Adult Escort Date/Time Name of Responsible Adult Escort Signature of Nurse Date/Time Activity:: Activity as Tolerated Equipment/Supplies:: No Equipment Needed Diet:: high fiber
[2022-05-09 07:17] VITALS: BP 123/63; PULSE 89; RESP 18; TEMP 36.3; O2SAT 98
[2022-05-09] MEDS: Lactated Ringers 1,000 ML 80 ML IV (07:35)
--- NOTE | 2022-05-09 08:08 | W.ANESPRE ---
General Info Date of Service Date Performed: 05/09/22 Height: 5 ft 7 in Weight: 79.9 kg Body Mass Index (BMI): 27.6 Surgical Procedure: Operation Date: 05/09/22 08:20 Proposed Procedure Side Surgeon fiordaliza Mabry MD Meds Allergies and Home Medications Allergies Allergy/AdvReac Type Severity Reaction Status Date / Time diphenhydramine Allergy Severe Hives Verified 05/09/22 07:20 [From [facility]] Home Medication Medication Instructions Recorded aspirin 81 mg tablet,delayed 81 mg PO DAILY 06/16/18 release (Laila Low Dose Aspirin) albuterol sulfate 90 mcg/actuation 2 puff inhalation Q6H PRN 10/10/18 aerosol inhaler (Proventil HFA) atorvastatin 20 mg tablet 20 mg PO DAILY 10/10/18 fluticasone propionate 50 1 spray intranasal DAILY PRN 11/02/18 mcg/actuation nasal spray,suspension levothyroxine 150 mcg capsule 150 mcg PO DAILY 07/01/21 bisacodyl 5 mg tablet,delayed 5 mg PO ONCE #4 tabs 04/19/22 release (Dulcolax (bisacodyl)) polyethylene glycol 3350 17 17 g PO ONCE #238 grams 04/19/22 gram/dose oral powder sucralfate 1 gram tablet (Carafate) 1 gm PO QACHS #14 tabs 05/08/22 Current Visit Medications: Current Medications Generic Name Dose Route Start Last Admin Trade Name Freq PRN Reason Stop Dose Admin Hyoscyamine Sulfate 0.125 mg 05/09/22 06:26 Hyoscyamine 0.125 Mg Sl/Oral/Chew SL DIRECTED PRN Ringer's Solution 1,000 mls @ 80 mls/hr 05/09/22 06:00 05/09/22 07:35 IV 06/05/22 23:59 80 mls/hr INFUSION FABIO Administration IV Miscellaneous Supplies 1 each 05/09/22 06:00 Iv Access IV 06/05/22 23:59 DIRECTED FABIO Ondansetron HCl 4 mg 05/09/22 06:26 Ondansetron 4 Mg/2 Ml Vial IVP Q4H PRN PRN Nausea / Vomiting Sodium Chloride 0 ml 05/09/22 06:00 Normal Saline Flush 10 Ml Syr IV 06/05/22 23:59 PRN PRN Sodium Chloride 0 ml 05/09/22 06:00 Normal Saline 10 Ml Vial IJ 06/05/22 23:59 DIRECTED PRN Sterile Water 0 ml 05/09/22 06:00 Water,Injection,Sterile 10 Ml Vial IJ 06/05/22 23:59 DIRECTED PRN PFSH Active Problems Active Problems: Problem Status Onset Code Chest pain R07.9 Screening for colon cancer Z12.11 Syncope R55 Colorectal polyps K63.5 Medical History Medical History Allergic rhinitis Asthma, exercise induced Cardiac murmur Carotid artery stenosis History of colon polyps 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, in remission for years Hyperlipidemia Hypothyroidism Pulsatile tinnitus of left ear Radiation exposure Subclavian artery stenosis Subclavian steal syndrome left subclavian stenosis with possible steal Surgical History Surgical History History of appendectomy History of splenectomy S/P colonoscopy (~11/26/18) Tobacco Smoking/Tobacco Use Status: Never Alcohol Alcohol Intake: current Alcohol intake frequency: a few times a week Alcohol type: beer Substance Use Substance use: Never Substance use type: does not use Details: alcohol: t-21 Vital Signs and Lab Results Vital Signs Most Recent Vital Signs in EMR: Most Recent Vital Signs Temp Pulse Resp BP Pulse Ox 36.3 C L 89 18 123/63 98 05/09/22 07:17 05/09/22 07:17 05/09/22 07:17 05/09/22 07:17 05/09/22 07:17 Lab Results Blood Type / Crossmatch: No Data to Display Complete Blood Count: White Blood Count 15.50 10^3/uL (4.4-10.8) H 05/07/22 23:51 Red Blood Count 4.93 10^6/uL (4.36-5.78) 05/07/22 23:51 Hemoglobin 14.8 g/dL (13.5-17.5) 05/07/22 23:51 Hematocrit 43.9 % (40.0-50.0) 05/07/22 23:51 Platelet Count 385 10^3/uL (130-400) 05/07/22 23:51 Complete Metabolic Panel: Sodium 141 mmol/L (136-145) 05/07/22 23:51 Potassium 3.9 mmol/L (3.5-5.1) 05/07/22 23:51 Chloride 105 mmol/L (98-107) 05/07/22 23:51 Carbon Dioxide 28.1 mmol/L (21.0-32.0) 05/07/22 23:51 BUN 21 mg/dL (7-18) H 05/07/22 23:51 Creatinine 1.0 mg/dL (0.70-1.30) 05/07/22 23:51 Est GFR (CKD-EPI 2020) 89.44 (mL/min/1.73m2) 05/07/22 23:51 Magnesium 2.2 mg/dL (1.8-2.4) 05/07/22 23:51 Calcium 8.7 mg/dL (8.5-10.1) 05/07/22 23:51 Albumin 3.5 g/dL (3.4-5.0) 05/07/22 23:51 Glucose 115 mg/dL (74-106) H 05/07/22 23:51 Liver Function Panel: Alanine Aminotransferase (ALT/SGPT) 45 U/L (16-63) 05/07/22 23:51 Aspartate Amino Transf (AST/SGOT) 29 U/L (15-37) 05/07/22 23:51 Coagulation Panel: D-Dimer 261 ng/mlFEU (<500) 05/07/22 23:52 Cardiac Panel: Troponin I < 50 ng/L (<or=60) 05/08/22 Arterial Blood Gas: No Data to Display Venous Blood Gas: No Data to Display Pancreas Panel: No Data to Display Thyroid Panel: No Data to Display Infectious Disease: No Data to Display Blood Cultures: No Data to Display Toxicology Panel: No Data to Display Anesthesia Assessment and Plan Anesthesia History Personal History: No History of Anesthesia Complications Family History: No Family History of Anesthesia Complications Exercise Tolerance Exercise Tolerance: Metabolic Equivalents>4 Pertinent Negatives Pertinent Negatives: No Major Cardiovascular Symptoms or Complaints, No Major Pulmonary Symptoms or Complaints and No History of CVA/TIA Cardiac & Pulmonary Exam Cardiac Exam: Normal S1/S2 Heart Sounds Pulmonary Exam: Clear Bilateral Breath Sounds Implantable Cardiac Device Does patient have a Pacemaker or an ICD?: No Airway Exam Known Difficult Airway: No Mallampati Class: 1 Mouth Opening: Normal (> 3cm) Thyromental Distance: Greater than 3 cm Facial Hair: Full Serrato Neck Range of Motion: Full ROM Neck Circumference: Normal Teeth Condition: Normal Dentition ASA Classification ASA Score: ASA 2 Emergency Case?: No NPO Status NPO Status: NPO Clears >2 hours, Solids >8 hours Anesthesia Plan Resuscitation Status: Full Code Anesthesia Technique: General Anesthesia Airway Planned: Natural Airway Monitors Used: Standard Monitors Preoperative Comments:: Recent ED visit 05/07 chest pain vs GERD - sx's resolved readily with GI cocktail
[2022-05-09 08:12] VITALS: BMI 27.6
--- NOTE | 2022-05-09 08:24 | BOWEL_PTH ---
PATIENT: Anibal Wharton LOC: [facility] U#:[id number] AGE/SX: 52/M ROOM: RE05/09/[address]: Samra Mabry MD : 1970 BED: DIS: 05/09/2022 SPEC #: [id number] RECD: 05/09/22 12:46 STATUS: JUAN M RESagrario #: [id number] LISA: 05/09/22 08:[address]: Samra Mabry DEPT: Surgical Specimen RECD BY: Keerthi Sifuentes ENTERED: 05/09/22 12:47 SP TYPE: Bowel OTHR DR: Carmelo Benavidez Tissues: 1 - BIOPSY BOWEL 2 - BIOPSY BOWEL 3 - BIOPSY BOWEL Procedures: GROSS AND MICRO LEVEL 4 Comments: [id number]
[2022-05-09 09:09] VITALS: BP 93/55; PULSE 76; RESP 16; TEMP 36.2; O2SAT 96
--- NOTE | 2022-05-09 09:10 | W.ANESPOSTOP ---
Postoperative Evaluation Date, Time and Location Date Performed: 05/09/22 Time Performed: 09:10 Patient Location: Day Surgery Unit Vital Signs Most Recent Imported Vital Signs: Most Recent Vital Signs Temp Pulse Resp BP Pulse Ox 36.3 C L 89 18 123/63 98 05/09/22 07:17 05/09/22 07:17 05/09/22 07:17 05/09/22 07:17 05/09/22 07:17 Most Recent Manually Entered Vital Signs: Adult Blood Pressure: 93/55 Heart Rate: 78 Respirations: 12 Oxygen Saturation (%): 97 Temperature (C): 36.3 C Pain Score (0-10 Scale): 0 Pain Score Most Recent Pain Score: Most Recent Pain Score Pain Level 0 05/09/22 07:17 Assessment Mental Status: Awake (Alert & Oriented to Patient Baseline) Airway and Respiratory Function: Patent airway with normal (patient baseline) respiratory exam Cardiovascular Function: Hemodynamically Stable Hydration Status: Adequately Hydrated Nausea & Vomiting: No Nausea or Vomiting Pain: Pt. Denies Any Pain Peripheral Nerve Block: Patient did not receive a nerve block
[2022-05-09 09:12] VITALS: BP 93/55; PULSE 78; RESP 12; TEMPC 36.3; O2SAT 97
[2022-05-09 09:37] VITALS: BP 121/61; PULSE 72; RESP 18; TEMP 36.2; O2SAT 97
== END 2022-05-09 10:09 | disposition home or self-care (01) ==
PROVIDERS: PCP Family Medicine; Visit Provider Surgery
PROC: 0DJD8ZZ Inspection of Lower Intestinal Tract, Via Natural or Artificial Opening Endoscopic (ICD-10-PCS; CPT 45378; principal; 2022-05-09 08:15)
DX: Z12.11 Encounter for screening for malignant neoplasm of colon (principal); K63.5 Polyp of colon; K57.30 Diverticulosis of large intestine without perforation or abscess without bleeding; Z86.010 Personal history of colon polyps; K62.1 Rectal polyp
CPT/HCPCS: 45380; 88305

== ENCOUNTER 2022-06-16 17:23 | Outpatient (REF) | payer BC, SELFPAY | END 2022-06-16 17:24 | disposition home or self-care (01) | LOC: NCHCN 17:23 | PROVIDERS: PCP Family Medicine; Visit Provider Family Medicine | DX: E03.9 Hypothyroidism, unspecified (principal) | CPT/HCPCS: 84443 ==

== ENCOUNTER 2023-09-15 17:37 | Emergency (ER) | payer BC, SELFPAY ==
[2023-09-15] VITALS (43 sets, daily range): BP systolic 141–190; BP diastolic 43–59; PULSE 78–95; RESP 14–24; TEMP 37.1; O2SAT 95
--- NOTE | 2023-09-15 17:30 | RT.EKG_ITS ---
APPROVED REPORT Exam: Resting ECG Reason for Exam: syncope Patient Location: E HR:89 bpm ECG Measurements Heart Rate 89 AXIS AZ 152 P 59 QRSd 105 QRS 25 QT 347 T 21 QTc 422 Conclusion Sinus rhythm...normal P axis, V-rate 60- 99 Left atrial enlargement...P, P'>60mS, <-0.15mV V1 Normal sinus rhythm at a rate of 89 with interventricular conduction delay and a QRS of 105 ms. AZ a nd QTc within normal limits. Mild upsloping ST segment elevation in V2. No ST segment depressions. Compared to prior dated 2 years ago interventricular conduction delay is new as is incomplete right bundle branch block.
--- NOTE | 2023-09-15 17:42 | ED.GENADUL_ITS ---
Discharge Plan Disposition Patient Disposition: Home Discharge Details Clinical Impression: Syncope Primary Care Provider: Carmelo Benavidez ED Provider: Tyler Warner Home Meds and New Rx's Prescriptions: Continued atorvastatin 20 mg tablet 20 mg PO DAILY Patient Comments: Pt takes every other day albuterol sulfate [Proventil HFA] 90 mcg/actuation HFA aerosol inhaler 2 puff IH Q6H PRN fluticasone propionate 50 mcg/actuation spray,suspension 1 spray YOLANDA DAILY PRN levothyroxine 150 mcg capsule 150 mcg PO DAILY aspirin [Laila Low Dose Aspirin] 81 mg Tablet,Delayed Release (Dr/Ec) 81 mg PO DAILY famotidine [Pepcid] 40 mg tablet 20 mg PO DAILY Discharge Instructions Instructions: Syncope (ED) Additional Instructions: You were seen in the emergency department for your episode of syncope. As we discussed please follow-up with your primary care provider next week as you will likely benefit from a formal echocardiogram of your heart and to ensure that you do not have any significant diseases of your heart valves nor any significant arrhythmias. Please return to the emergency department if you pass out again if you develop any black or bloody stools or if you have any other concerns. Discharge Data Discharge Date/Time-TO BE ENTERED AT DEPARTURE: 09/15/23 21:39 HPI General Date/Time Provider Initiated Documentation: 09/15/23 17:42 . HPI Narrative: MDM This is an overall very well-appearing normothermic and not tachycardic 53-year-old with syncope and murmur concern for the possibility of symptomatic aortic stenosis.Patient has not had an echocardiogram performed. Given his sy ncope I am concerned that he may require hospitalization for an echocardiogram. No NSAID use no black nor bloody stools and my suspicion is low for anemia. No tonic-clonic activity to suggest seizures I do not feel that the patient requires an EEG. Patient is neurologically intact and as result I am not suspicious for CVA so I did not feel that the patient required an MRI nor would he be a tPA candidate. No shortness of breath nor chest pain so doubt PE so I did not send a D-dimer. No history of heart failure no shortness of breath so I did not send proBNP. Syncope was not exertional. 6:30 PM CBC shows leukocytosis but no anemia. No thrombocytopenia. 6:57 PM Negative troponin. Basic metabolic panel showing very mild hyperglycemia but no anion gap and normal bicarbonate??not consistent with DKA. No LEONARDA. 7:43 PM I spoke to Dr. Riley from vascular at [facility]. She advised touching base with neurology as she was concerned that this could be a TIA secondary to his subclavian artery stenosis causing decreased vertebral flow. She advised neurology consult. Will complete telemetry neuro consult. Dr. Riley will have the patient seen in follow-up with vascular. 8:04 PM I spoke to Dr. Teran from neuro who felt that patient's syncope was not related to his subclavian stenosis. He did not feel that the patient required an emergent CT angiogram of his head nor neck nor chest. He noted that the patient had mild to moderate common carotid stenosis. I have asked health hospital unit clerk Ila to have the patient seen next week by his primary care provider as he will likely benefit from a formal echocardiogram and a Holter monitor. 9:30 PM Repeat troponin negative. Patient's blood pressure 141/50. Patient remains asymptomatic. Patient and I discussed return to the ED for any recurrent syncope or chest pain nausea or vomiting. I also advised primary care follow-up next week. Patient understood his return indications and was discharged with an empiric trial of expectant outpatient management. In the setting of syncope I considered: High risk features: 1. Age of the patient (elderly a greatest risk) 2. Syncope during exertion 3. Family history of sudden [place] syncope rule: 1. History of CHF 2. Hematocrit < 30 3. EKG abnormalities 4. Present shortness of breath 5. Systolic blood pressure less than 90 Cardiac arrhythmia/EKG or abnormalities considered: 1. ACS: No ST changes 2. Tachy-ruel: No blocks 3. WPW: No delta wave 4. Brugada: No RSR'; R-bundle appearance 5. HCM: No LVH; needle Qs/ T-wave inversions 6. Short/ Long QT: 300 < QTc < 500; no family hx 7. Arrhythmogenic Right Ventricular Dysplasia: No epsilon wave, no inverted Ts in anterior precordium Chronic conditions affecting the care of the patient: N/A History obtained from an outside historian: Patient's External record review: [facility] E[place] Diagnostic interpretations performed by me: Per my independent interpretation EKG shows: Normal sinus rhythm at a rate of 89 with interventricular conduction delay and a QRS of 105 ms. WI and QTc within normal limits. Mild upsloping ST segment elevation in V2. No ST segment depressions. Compared to prior dated 2 years ago interventricular conduction delay is new as is incomplete right bundle branch block. ]Medications: N/A Social determinants of health affecting disposition: N/A Management discussed with: Vascular and neurology at [facility] Treatment/interventions considered: N/A Response to therapies provided: Improved symptoms in the ED HPI This is a 53-year-old male with remote history of Hodgkin's lymphoma and subclavian stenosis on daily aspirin arrived to the emergency department via private vehicle in the setting of a syncopal episode that occurred at rest. Patient was reportedly eating dinner with his . 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 He said that he suddenly felt weak and began sweating. He did not have chest pain. His eyes reportedly rolled in the back of his head for approximately 45 to 60 seconds. He had no loss of bowel or bladder control. No convulsions. He denies chest pain shortness of breath. He does feel slightly dizzy and lightheaded. He has had several prior episodes and has received IV fluids. There is no family history of sudden cardiac . Patient takes a statin for hyperlipidemia and levothyroxine. He has had no black nor bloody stools. He denies routine NSAIDs. He denies dysuria frequency abdominal pain. Denies routine tobacco, ethanol, and illicits. Rarely uses NSAIDs. Denies fevers cough chills. Exam General: Well-appearing in no acute distress speaking in complete sentences. Head: Normocephalic, atraumatic. Eye: Extraocular eye movements intact. No conjunctival injection. No scleral icterus. Ear, nose, mouth, throat: Grossly normal inspection. Normal voice, handling secretions normally. Neck: Trachea midline. Cardiovascular: Well-perfused distal extremities. 3 out of 6 systolic ejection murmur left sternal border. Respiratory: Nonlabored respiration. Clear lungs bilaterally. Gastrointestinal: Nondistended abdomen. Musculoskeletal: No edema. Moving all 4 extremities spontaneously. Skin: Normal for age and race, grossly normal temperature and turgor. No acute rash. Neurologic: Alert and appropriate, no apparent acute deficits. Cranial nerves II through XII intact grossly. Psychiatric: Mood and manner are appropriate. Grooming and personal hygiene are appropriate. Related Data Home Medications Medication Instructions Recorded Confirmed aspirin 81 mg tablet,delayed 81 mg PO DAILY 06/16/18 09/15/23 release (Laila Low Dose Aspirin) albuterol sulfate 90 mcg/actuation 2 puff inhalation Q6H PRN 10/10/18 09/15/23 aerosol inhaler (Proventil HFA) atorvastatin 20 mg tablet 20 mg PO DAILY 10/10/18 09/15/23 fluticasone propionate 50 1 spray intranasal DAILY PRN 11/02/18 09/15/23 mcg/actuation nasal spray,suspension levothyroxine 150 mcg capsule 150 mcg PO DAILY 07/01/21 09/15/23 famotidine 40 mg tablet (Pepcid) 20 mg PO DAILY 09/15/23 09/15/23 Allergies Allergy/AdvReac Type Severity Reaction Status Date / Time diphenhydramine Allergy Severe Hives Verified 09/15/23 17:45 [From Sirisha] General ANJANA: 2 Medical Decision Making Quality:SDOH Health Related Social Needs: No Data to Display PFSH All Active Problems (Updated 09/15/23 @ 20:09 by Tyler Warner MD) Screening for colon cancer (Acute) Syncope (Chronic) Colorectal polyps (Acute) Medical History Allergic rhinitis Asthma, exercise induced Cardiac murmur Carotid artery stenosis History of colon polyps 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, in remission for years Hyperlipidemia Hypothyroidism Pulsatile tinnitus of left ear Radiation exposure Subclavian artery stenosis Subclavian steal syndrome left subclavian stenosis with possible steal Surgical History History of appendectomy History of splenectomy S/P colonoscopy (~11/26/18) Social History Smoking/Tobacco Use Status: Never Smoking risk assessment performed?: Yes Alcohol Intake: current Alcohol Intake frequency: a few times a week Alcohol type: beer Drug use: Never Substance use type: does not use Details: alcohol: t-21 Household members: spouse Housing: house 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; 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 Pets and animals: Yes Pets and animals: cat(s) Current gender identity: male What is your relationship status?: Panel score (0-1 are the most socially isolated patients): 1 What type of physical activity do you participate in: weight lifting and running Frequency: 3-4 times per week Seatbelt use: always Do you feel safe at home: Yes Do you feel safe in your relationship?: Yes POCUS Exam (ED) Limited Cardiac Exam DATE OF EXAM: 09/15/23 TIME OF EXAM: 20:07 PROVIDER THAT PERFORMED THE STUDY: Tyler Warner IS THIS A REPEAT EXAM DURING THIS ENCOUNTER: no REASON FOR EXAM: Chest pain VISUALIZED STRUCTURES: Four Chambers, Left ventricle and LVOT VIEW OBTAINED: Apical 4-Chamber, Parasternal long-axis and Subxiphoid PERTINENT FINDINGS/IMPRESSION: No pericardial effusion and No RV dilation DIFFERENTIAL DIAGNOSES: Aortic outflow track less than 4 cm, good squeeze, RV less than LV, no significant pericardial effusion. Exam complete
[2023-09-15 18:20] LABS: Abs Immature Grans 0.02 10^3/uL (0.0-0.06); Absolute Basophil Count 0.11 10^3/uL (0.0-0.2); Absolute Eosinophil Count 0.57 10^3/uL (0.0-0.7); Absolute Lymphocyte Count 4.91 10^3/uL (1.2-3.4); Absolute Monocyte Count 1.42 10^3/uL (0.1-0.8); Absolute Neutrophil Count 6.88 10^3/uL (1.2-6.7); Basophils % 0.8; Eosinophils % 4.1; HCT 41.9 % (40.0-50.0); HGB 14.4 g/dL (13.5-17.5); Immature Grans % 0.1; Lymphocytes % 35.3; MCH 30.3 pg (27.0-33.0); MCHC 34.4 % (32.0-36.0); MCV 88 fL (80-95); MPV 10.6 fL (8.0-11.0); Monocytes % 10.2; Neutrophils % 49.5; Platelet Count 352 10^3/uL (130-400); RBC 4.76 10^6/uL (4.36-5.78); RDW 13.7 % (11.8-14.1); RDW-SD 43.8 fL
[2023-09-15] MEDS: Normal Saline 500 ML IV (18:30)
[2023-09-15 18:37] LABS: Anion Gap 9.3 mmol/L (3-11); BUN 17 mg/dL (7-18); CO2 26.7 mmol/L (21.0-32.0); CREATININE 1.2 mg/dL (0.70-1.30); Calcium 8.6 mg/dL (8.5-10.1); Chloride 106 mmol/L (98-107); Estimated GFR 71.42 (mL/min/1.73m2); Glucose 119 mg/dL (74-106); Potassium 3.7 mmol/L (3.5-5.1); Sodium 142 mmol/L (136-145); Troponin I < 50 ng/L (< or =60)
[2023-09-15 21:28] LABS: Troponin I < 50 ng/L (< or =60)
--- NOTE | 2023-09-16 01:00 | NUR.NOTE ---
Pt placed on care management referral list to see PCP for Echo and halter monitor within 1 week per TEJINDER Dailey
== END 2023-09-15 21:39 | disposition home or self-care (01) ==
PROVIDERS: Emergency Provider Emergency Medicine; PCP Family Medicine
DX: R55 Syncope and collapse (principal)
CPT/HCPCS: 80048; 93005; 93308; 96360; 99284; 84484; 85025; 93010

== ENCOUNTER 2023-09-22 14:19 | Outpatient (RCR) | payer BC, SELFPAY ==
--- NOTE | 2023-09-22 15:00 | HOLTER_ITS ---
APPROVED REPORT Conclusion This is a 48 hour Holter monitor Rhythm throughout was sinus. Average heart rate was 85. Minimum was 72, maximum 118 There were no ventricular dysrhythmias There were 5 atrial premature beats There was no atrial fibrillation, no AV block, no pauses greater than 3 seconds
== END 2023-09-25 15:01 | disposition home or self-care (01) ==
LOC: CARDOPNVT 14:19
PROVIDERS: PCP Family Medicine; Visit Provider Internal Medicine Cardiovascular Disease
DX: R55 Syncope and collapse (principal)
CPT/HCPCS: 93225; 93226

== ENCOUNTER 2023-10-11 16:08 | Outpatient (REF) | payer BC, SELFPAY ==
[2023-10-11 21:19] LABS: ALT 44 U/L (16-63); TSH 0.61 uIU/Ml (0.36-3.74)
[2023-10-11 22:05] LABS: AST 33 U/L (15-37)
== END 2023-10-11 16:09 | disposition home or self-care (01) ==
LOC: NCHCN 16:08
PROVIDERS: PCP Family Medicine; Visit Provider Family Medicine
DX: E78.5 Hyperlipidemia, unspecified (principal); E03.9 Hypothyroidism, unspecified
CPT/HCPCS: 84443; 84450; 84460

== ENCOUNTER 2024-10-07 12:01 | Outpatient (REF) | payer BC, SELFPAY ==
[2024-10-07 15:40] LABS: HCT 46.4 % (40.0-50.0); HGB 15.5 g/dL (13.5-17.5); MCH 30.1 pg (27.0-33.0); MCHC 33.4 % (32.0-36.0); MCV 90 fL (80-95); MPV 10.9 fL (8.0-11.0); Platelet Count 424 10^3/uL (130-400); RBC 5.15 10^6/uL (4.36-5.78); RDW 13.4 % (11.8-14.1); RDW-SD 45.1 fL; WBC 8.54 10^3/uL (4.4-10.8)
[2024-10-07 17:18] LABS: ALT 48 U/L (16-63); AST 36 U/L (15-37); Albumin 3.7 g/dL (3.4-5.0); Alkaline Phosphatase 61 U/L (46-116); Anion Gap 9.6 mmol/L (3-11); BUN 22 mg/dL (7-18); Bilirubin, Total 0.5 mg/dL (0.2-1.0); CO2 26.4 mmol/L (21.0-32.0); CREATININE 1.1 mg/dL (0.70-1.30); Calcium 9.3 mg/dL (8.5-10.1); Calculated LDL 121 mg/dL (<100); Chloride 106 mmol/L (98-107); Cholesterol 193 mg/dL (<200); Estimated GFR 78.79 (mL/min/1.73m2); Glucose 99 mg/dL (74-106); HDL Cholesterol 59 mg/dL (>or=40); Potassium 5.1 mmol/L (3.5-5.1); Sodium 142 mmol/L (136-145); Total Protein 7.2 g/dL (6.4-8.2); Triglyceride 67 mg/dL (<150)
== END 2024-10-07 12:02 | disposition home or self-care (01) ==
LOC: NCHCN 12:01
PROVIDERS: PCP Family Medicine; Visit Provider Family Medicine
DX: Z00.00 Encounter for general adult medical examination without abnormal findings (principal)
CPT/HCPCS: 80053; 80061; 85027